=== PATIENT | female | born 1945 | race Caucasian/White ===

== ENCOUNTER → 2016-11-22 | Outpatient (CLI) | payer OTHER ==
[~2016-11-22] MED LIST: ASPEC81 PO; ATOR-26 PO; CHOL2000 PO; CMD25 PO; LSN25 PO; LSX20 PO; METO50TA17 PO; OMEP40CA41 PO; SPIR25TA PO
== END | disposition home or self-care (01) ==
LOC: C.LABPVFM 13:57
PROVIDERS: ATTEND Family Medicine
DX: J02.9 Acute pharyngitis, unspecified (principal)

== ENCOUNTER → 2016-12-20 | Outpatient (CLI) | payer OTHER ==
[2016-12-20 17:30] LABS: BASO % 0.3 %; BASO ABS # 0.03 K/uL (0-0.2); COMPLETE YES; EOS % 3.6 %; HEMATOCRIT 42.7 % (37-47); IG% 0.2 %; LYMPH % 23.3 %; LYMPH ABS # 2.53 K/uL (1.2-3.4); MEAN CELL VOLUME 90.7 fL (80-100); MEAN CORPUSCULAR HEMOGLOBIN 28.7 pg (25-34); MEAN CORPUSCULAR HGB CONC 31.6 g/dl (32-36); MEAN PLATELET VOLUME 10.5 fL (7.4-10.4); MONO % 7.2 %; NEUT % 65.4 %; PLATELET COUNT 262 K/uL (130-400); RED BLOOD COUNT 4.71 M/uL (4.2-5.4); WHITE BLOOD COUNT 10.86 K/uL (4.8-10.8)
[2016-12-20 17:44] LABS: ALT/SGPT 17 U/L (12-78); AST/SGOT 13 U/L (15-37); BLOOD UREA NITROGEN 14 mg/dl (7-18); BUN/CREATININE RATIO 14.4 (10-20); CALCIUM 9.3 mg/dl (8.5-10.1); CARBON DIOXIDE 29 mmol/L (21-32); CHLORIDE 106 mmol/L (98-107); GLUCOSE 98 mg/dl (70-99); POTASSIUM 4.4 mmol/L (3.5-5.1); SODIUM 140 mmol/L (136-145)
[2016-12-20 17:47] LABS: ALKALINE PHOSPHATASE 77 U/L (45-117)
== END | disposition home or self-care (01) ==
LOC: C.LABPVFM 10:57
PROVIDERS: ATTEND Family Medicine
DX: I10 Essential (primary) hypertension (principal); M81.0 Age-related osteoporosis without current pathological fracture; E78.5 Hyperlipidemia, unspecified; I48.91 Unspecified atrial fibrillation

== ENCOUNTER → 2017-05-17 | Outpatient (CLI) | payer OTHER ==
[2017-05-17 13:02] LABS: ALT/SGPT 19 U/L (12-78); BLOOD UREA NITROGEN 19 mg/dl (7-18); BUN/CREATININE RATIO 19.8 (10-20); CARBON DIOXIDE 27 mmol/L (21-32); CHLORIDE 107 mmol/L (98-107); CHOLESTEROL 106 mg/dl (0-200); CREATININE 0.95 mg/dl (0.60-1.20); GLUCOSE 99 mg/dl (70-99); POTASSIUM 4.6 mmol/L (3.5-5.1); SODIUM 140 mmol/L (136-145)
[2017-05-17 13:05] LABS: ALKALINE PHOSPHATASE 84 U/L (45-117); AST/SGOT 18 U/L (15-37); CHOLESTEROL/HDL RATIO 2.5; HDL CHOLESTEROL 43 mg/dl; LDL CHOLESTEROL CALCULATED 39 mg/dl; TRIGLYCERIDES 118 mg/dl (0-150); VERY LOW DENSITY LIPOPROT CALC 24 mg/dl
== END | disposition home or self-care (01) ==
LOC: C.LABPVFM 09:09
PROVIDERS: ATTEND Family Medicine
DX: I10 Essential (primary) hypertension (principal); E55.9 Vitamin D deficiency, unspecified; E78.5 Hyperlipidemia, unspecified; I48.91 Unspecified atrial fibrillation; N28.89 Other specified disorders of kidney and ureter

== ENCOUNTER → 2017-05-23 | Outpatient (CLI) | payer OTHER ==
[2017-05-23 13:19] LABS: URINE PROTIEN/CREAT RATIO 0.1 (0-0.2)
== END | disposition home or self-care (01) ==
LOC: C.LABPVFM 06:19
PROVIDERS: ATTEND Family Medicine
DX: I10 Essential (primary) hypertension (principal); E55.9 Vitamin D deficiency, unspecified; E78.5 Hyperlipidemia, unspecified; I48.91 Unspecified atrial fibrillation; N28.89 Other specified disorders of kidney and ureter

== ENCOUNTER → 2017-07-12 | Outpatient (CLI) | payer OTHER | END | disposition home or self-care (01) | LOC: C.MAMM 08:45 | PROVIDERS: ATTEND Family Medicine | DX: M81.0 Age-related osteoporosis without current pathological fracture (principal) ==

== ENCOUNTER → 2017-11-28 | Outpatient (CLI) | payer OTHER ==
[2017-11-28 13:21] LABS: ALBUMIN 3.6 gm/dl (3.4-5.0); ALT/SGPT 16 U/L (12-78); BLOOD UREA NITROGEN 17 mg/dl (7-18); CALCIUM 9.3 mg/dl (8.5-10.1); CARBON DIOXIDE 26 mmol/L (21-32); CHOLESTEROL 101 mg/dl (0-200); CREATININE 1.02 mg/dl (0.60-1.20); GLUCOSE 105 mg/dl (70-99); POTASSIUM 4.6 mmol/L (3.5-5.1); SODIUM 139 mmol/L (136-145)
[2017-11-28 13:24] LABS: ALKALINE PHOSPHATASE 78 U/L (45-117); AST/SGOT 15 U/L (15-37); LDL CHOLESTEROL CALCULATED 45 mg/dl; TOTAL PROTEIN 7.1 gm/dl (6.4-8.2)
== END | disposition home or self-care (01) ==
LOC: C.LABPVFM 11:07
PROVIDERS: ATTEND Family Medicine
DX: I10 Essential (primary) hypertension (principal); E78.5 Hyperlipidemia, unspecified; I48.91 Unspecified atrial fibrillation; R94.31 Abnormal electrocardiogram [ECG] [EKG]; Z12.31 Encounter for screening mammogram for malignant neoplasm of breast

== ENCOUNTER 2020-10-25 11:13 | Inpatient (IN) ==
--- NOTE | 2020-10-25 11:34 | Emergency Department Note ---
Impression & Plan Atrial fibrillation with rapid ventricular response, Closed fracture of left proximal humerus, Left lower lobe pneumonia, CHI (closed head injury), Leukocytosis, Acute renal failure ED Provider Note INFORMANT: Patient ED PROVIDER(S): Román Lim MD CHIEF COMPLAINT: Fall PLAN: Disposition: Admitted Condition: Good Outpatient prescription management: none Referral: None MEDICAL DECISION MAKING: Patient presented to the emergency department after a fall out of bed. She was evaluated. She was found to be in rapid A. fib and her oxygen saturations were borderline low. Chest x-ray did reveal a mild pneumonia. ECG showed rapid atrial fibrillation. The patient was hydrated. She was given IV Lopressor. She was hydrated. Head CT and cervical spine CT were negative for acute process. She was found to have a proximal humerus fracture. She was placed in a sling. She only wanted Tylenol and this was given. The patient was also given a dose of IV Rocephin. Chemistry panel did reveal an elevated creatinine concerning for acute renal failure. Urinalysis was unremarkable. The patient was reassessed multiple times. She had a period where she was somewhat confused. BSG was normal. Repeat blood pressures revealed improvement. Her confusion seemed to improve. Covid testing was performed and was negative. Consultation was made with the [facility] service. Case was discussed with Dr. Rosales. He will consult with orthopedics. He evaluated t he patient in the ER and admitted her. Triage Nursing notes reviewed and agree them. Vital Signs: reviewed and remarkable for borderline low blood pressure and tachycardia Differential diagnosis: Fracture, subluxation, dislocation, contusion, ligamentous injury, neurovascular, compartment syndrome, rhabdomyolysis, as well as other pathologies. Diagnostics interpreted by me: ECG: Twelve-lead ECG reveals atrial fibrillation with RVR at 124 bpm. There is poor R wave progression. There is inferolateral T wave inversions. No ST elevation. Cardiac Monitoring: Cardiac monitoring ordered by me: The patient was placed on continuous cardiac monitoring and observed. It revealed atrial fibrillation at 110 beats per minute . Imaging studies: Head CT negative for acute process CT cervical negative for acute process Chest x-ray reveals left sided infiltrate. X-ray of the left humerus reveals a proximal fracture. No dislocation. Mild subluxation. Consultation(s): [facility] service HPI: The patient is a 75 year old female who presents to the Emergency Room with complaints of a fall. This started this morning and is from her bed. She lives at home. She apparently rolled out onto her left side. She did strike her head. There was a hematoma and she has pain in the left numerous area. The patient has has taken no medication for relieving factors. Current pain is rated as 6/10. Pt denies LOC, headache, fevers, chills, diaphoresis, visual changes, neck pain, chest pain, breathing difficulties, nausea, vomiting, abdominal pain, back pain, melena, hematochezia, urinary symptoms, numbness, weakness, lymphadenopathy, rash, or other complaints. ROS: See above HPI for pertinent positives & negatives. A total of 10 systems reviewed and were otherwise negative. PAST MEDICAL HISTORY:See Below , atrial fibrillation, COPD, hypertension PAST SURGICAL HISTORY:See Below, FAMILY HISTORY:See Below SOCIAL HISTORY:See Below, family, former smoker HOME MEDICATIONS:See Below ALLERGIES:See Below VITALS:See Below PHYSICAL EXAMINATION: GENERAL: Awake, alert, mildly uncomfortable-appearing, in no distress HENT: Normocephalic, forehead contusion noted. Oropharynx unremarkable. EYES: Normal conjunctiva. Sclera non-icteric. NECK: Inspection normal. Non-tender. Supple. No nuchal rigidity. FROM. No masses. RESPIRATORY: Clear to auscultation. No wheezes. No rales. Normal respiratory effort. CARDIAC: Tachycardic rate. Irregular rhythm. No murmurs. No rubs. Extremities warm and well perfused. Pulses equal. No JVD. GI: Soft, non-distended. No tenderness to palpation. No rebound or guarding. No masses. RECTAL: Deferred. MUSCULOSKELETAL: Atraumatic. Chest examination reveals no tenderness. The back is symmetrical on inspection without obvious abnormality. There is no CVA tenderness to palpation. No joint edema. LOWER EXTREMITIES: Calves are equal size bilaterally and non-tender. No edema. No discoloration. NEURO: Normal sensorium. No sensory or motor deficits noted. SKIN: No rash or jaundice noted. ED COURSE: Critical Care: I have personally spent greater than 32 minutes of critical care time in the direct management of this patient. This includes bedside care, interpretation of diagnostic studies, and testing, discussion with consultants, patient, and family members, and other required patient management activities. These minutes are in excess of all separately billable procedures. Román Lim MD Past Med/Surg History Medical History Abnormal mammogram Acquired pyloric stenosis Anxiety Common bile duct stone Depression History of basal cell carcinoma Intraductal papilloma Malignant neoplasm of colon, unspecified Surgical History History of breast surgery History of cholecystectomy History of colonoscopy History of exploratory laparotomy History of hip replacement History of oral surgery History of tonsillectomy History of tubal ligation Family History Mother Myocardial infarction Hypertension Father Myocardial infarction Hypertension Brother Myocardial infarction Sister Diabetes Denies family history of Ovarian cancer Prostate cancer Breast cancer Colorectal cancer Social History (Updated 08/05/20 @ 09:30 by RASHARD Hale) Smoking Status: Never smoker Hx Alcohol Use: No Hx Substance Use: No Hearing Ability: Normal Beliefs That Will Affect Care: None marital status: / Current Living Situation: Alone current occupational status: retired Feels Safe at Home: Yes caffeine: Yes Dental Care, Regularly: No Physical Activity Frequency: Does not Exercise Seatbelt Use: always Sunscreen Use: No Allergies Allergies Allergy/AdvReac Type Severity Reaction Status Date / Time No Known Allergies Allergy Mild Verified 10/25/20 12:10 Home Meds Home Medications Medication Instructions Recorded Confirmed cholecalciferol (vitamin D3) 50 2,000 units PO DAILY #30 cap 06/25/19 10/25/20 mcg (2,000 unit) capsule aspirin [Aspirin Low Dose] 81 mg PO DAILY 10/25/20 10/25/20 sertraline 25 mg PO DAILY 10/25/20 10/25/20 Previous Rx's Medication Instructions Recorded rivaroxaban 15 mg tablet 15 mg PO DAILY #90 tab 01/27/20 furosemide 20 mg tablet 20 mg PO 3XWK #30 tab 04/20/20 metoprolol tartrate 25 mg tablet 12.5 mg PO BID #90 tab 07/05/20 atorvastatin 40 mg tablet 40 mg PO DAILY #90 tab 07/19/20 lisinopril 5 mg tablet 5 mg PO DAILY #90 tab 07/19/20 spironolactone 25 mg tablet 25 mg PO DAILY #90 tab 07/19/20 albuterol sulfate 90 mcg/actuation 1 inh INHALATION QID PRN #8.5 g 08/05/20 aerosol inhaler Results & Data (ED) Vital Signs Vital Signs - 24 hr 10/25/20 11:18 10/25/20 11:20 10/25/20 11:27 Temperature 36.9 C Temperature Source Oral Pulse Rate 112 H 132 H 115 H Pulse Rate from SpO2 Sensor Respiratory Rate 22 24 18 Blood Pressure 99/53 L 99/53 L Blood Pressure Mean 68 68 Pulse Oximetry 95 Oxygen Delivery Method Room Air Oxygen Flow Rate Sepsis Recent Fever Within 48 Hours No Sepsis New/Unexplained Change in Mental Status No Sepsis Action Taken by Nursing Physician Notified Oxygen Flow Rate - Titration Pulse Oximetry Post Tiitration 10/25/20 11:30 10/25/20 11:31 10/25/20 11:42 Temperature Temperature Source Pulse Rate 126 H Pulse Rate from SpO2 Sensor Respiratory Rate 22 Blood Pressure Blood Pressure Mean Pulse Oximetry 95 86 L Oxygen Delivery Method Room Air Room Air Oxygen Flow Rate Sepsis Recent Fever Within 48 Hours Sepsis New/Unexplained Change in Mental Status Sepsis Action Taken by Nursing Oxygen Flow Rate - Titration 2 Pulse Oximetry Post Tiitration 97 10/25/20 12:00 10/25/20 12:01 10/25/20 12:21 Temperature Temperature Source Pulse Rate 178 H 118 H 127 H Pulse Rate from SpO2 Sensor 137 H 105 H 156 H Respiratory Rate 23 20 22 Blood Pressure Blood Pressure Mean 129 Pulse Oximetry 99 100 100 Oxygen Delivery Method Oxygen Flow Rate 2 2 2 Sepsis Recent Fever Within 48 Hours Sepsis New/Unexplained Change in Mental Status Sepsis Action Taken by Nursing Oxygen Flow Rate - Titration Pulse Oximetry Post Tiitration 10/25/20 12:22 10/25/20 12:26 10/25/20 12:29 Temperature Temperature Source Pulse Rate 124 H 146 H 126 H Pulse Rate from SpO2 Sensor 137 H 136 H 123 H Respiratory Rate 20 22 22 Blood Pressure 90/63 L 94/55 L Blood Pressure Mean 72 68 Pulse Oximetry 98 99 97 Oxygen Delivery Method Oxygen Flow Rate 2 2 2 Sepsis Recent Fever Within 48 Hours Sepsis New/Unexplained Change in Mental Status Sepsis Action Taken by Nursing Oxygen Flow Rate - Titration Pulse Oximetry Post Tiitration 10/25/20 12:30 10/25/20 12:58 10/25/20 12:59 Temperature Temperature Source Pulse Rate 123 H 122 H 132 H Pulse Rate from SpO2 Sensor 156 H 140 H Respiratory Rate 24 20 Blood Pressure 91/66 L 91/66 L Blood Pressure Mean 74 Pulse Oximetry 94 98 Oxygen Delivery Method Oxygen Flow Rate 2 Sepsis Recent Fever Within 48 Hours Sepsis New/Unexplained Change in Mental Status Sepsis Action Taken by Nursing Oxygen Flow Rate - Titration Pulse Oximetry Post Tiitration 10/25/20 13:00 10/25/20 13:30 10/25/20 13:38 Temperature Temperature Source Pulse Rate 138 H 124 H 110 H Pulse Rate from SpO2 Sensor 129 H 110 H 109 H Respiratory Rate 21 22 20 Blood Pressure 84/53 L Blood Pressure Mean 63 Pulse Oximetry 100 100 99 Oxygen Delivery Method Oxygen Flow Rate Sepsis Recent Fever Within 48 Hours Sepsis New/Unexplained Change in Mental Status Sepsis Action Taken by Nursing Oxygen Flow Rate - Titration Pulse Oximetry Post Tiitration 10/25/20 13:39 10/25/20 14:00 10/25/20 14:07 Temperature Temperature Source Pulse Rate 135 H 131 H 131 H Pulse Rate from SpO2 Sensor 102 H 115 H 123 H Respiratory Rate 22 21 21 Blood Pressure 89/50 L Blood Pressure Mean 63 Pulse Oximetry 99 100 100 Oxygen Delivery Method Oxygen Flow Rate 2 2 2 Sepsis Recent Fever Within 48 Hours Sepsis New/Unexplained Change in Mental Status Sepsis Action Taken by Nursing Oxygen Flow Rate - Titration Pulse Oximetry Post Tiitration 10/25/20 14:30 10/25/20 14:31 10/25/20 14:34 Temperature Temperature Source Pulse Rate 138 H 127 H 120 H Pulse Rate from SpO2 Sensor 125 H 109 H 116 H Respiratory Rate 21 22 23 Blood Pressure Blood Pressure Mean 61 Pulse Oximetry 98 99 99 Oxygen Delivery Method Oxygen Flow Rate 2 2 2 Sepsis Recent Fever Within 48 Hours Sepsis New/Unexplained Change in Mental Status Sepsis Action Taken by Nursing Oxygen Flow Rate - Titration Pulse Oximetry Post Tiitration 10/25/20 14:35 10/25/20 15:00 10/25/20 15:01 Temperature Temperature Source Pulse Rate 121 H 118 H 123 H Pulse Rate from SpO2 Sensor 127 H 101 H 116 H Respiratory Rate 22 23 21 Blood Pressure 147/55 H Blood Pressure Mean 85 Pulse Oximetry 99 96 95 Oxygen Delivery Method Oxygen Flow Rate Sepsis Recent Fever Within 48 Hours Sepsis New/Unexplained Change in Mental Status Sepsis Action Taken by Nursing Oxygen Flow Rate - Titration Pulse Oximetry Post Tiitration 10/25/20 15:06 Temperature Temperature Source Pulse Rate Pulse Rate from SpO2 Sensor Respiratory Rate 18 Blood Pressure Blood Pressure Mean Pulse Oximetry Oxygen Delivery Method Oxygen Flow Rate Sepsis Recent Fever Within 48 Hours Sepsis New/Unexplained Change in Mental Status Sepsis Action Taken by Nursing Oxygen Flow Rate - Titration Pulse Oximetry Post Tiitration Laboratory Data Result diagrams: 10/25/20 11:35 10/25/20 11:35 Lab Results 10/25/20 10/25/20 10/25/20 Range/Units 11:35 11:35 12:34 WBC 15.62 H (4.8-10.8) K/uL RBC 4.46 (4.2-5.4) M/uL Hgb 10.9 L (12.0-16.0) g/dL Hct 38.0 (37-47) % MCV 85.2 (80-100) fL MCH 24.4 L (25-34) pg MCHC 28.7 L (32-36) g/dL RDW Std Deviation 56.9 H (36.4-46.3) fL RDW Coeff of Andrae 18.2 H (11.5-14.5) % Plt Count 294 (130-400) K/uL MPV 9.6 (7.4-10.4) fL Immature Gran % (Auto) 0.3 % Neut % (Auto) 86.9 % Lymph % (Auto) 3.7 % [place] % (Auto) 8.9 % Eos % (Auto) 0.1 % Baso % (Auto) 0.1 % Neut # (Auto) 13.58 H (1.4-6.5) K/uL Lymph # (Auto) 0.58 L (1.2-3.4) K/uL [place] # (Auto) 1.39 H (0.11-0.59) K/uL Eos # (Auto) 0.01 (0-0.5) K/uL Baso # (Auto) 0.01 (0-0.2) K/uL Immature Gran # (Auto) 0.05 H (0.00-0.02) K/uL Absolute Nucleated RBC 0.04 H (0-0) K/uL Nucleated RBC % (auto) 0.3 % Poikilocytosis Present Ovalocytes 1+ Echinocytes 1+ Schistocytes 1+ Sodium 143 (136-145) mmol/L Potassium 5.1 (3.5-5.1) mmol/L Chloride 106 (98-107) mmol/L Carbon Dioxide 30 (21-32) mmol/L Anion Gap 7.0 (3-11) BUN 70 H (7-18) mg/dl Creatinine 2.03 H (0.6-1.2) mg/dl Est Cr Clr Drug Dosing 28.1 ml/min Est GFR ( Amer) 27.3 Est GFR (Non-Af Amer) 23.6 BUN/Creatinine Ratio 34.5 H (10-20) Glucose 151 H (70-99) mg/dl POC Glucose (70-99) mg/dl Lactate (0.4-2.0) mmol/L Calcium 9.8 (8.5-10.1) mg/dl Total Bilirubin 1.2 H (0.2-1) mg/dl AST 27 (15-37) U/L ALT 57 (12-78) U/L Alkaline Phosphatase 128 H (45-117) U/L Total Protein 7.0 (6.4-8.2) gm/dl Albumin 3.3 L (3.4-5.0) gm/dl Globulin 3.7 (2.5-4.0) gm/dl Albumin/Globulin Ratio 0.9 (0.9-2) TSH 4.960 H (0.300-4.500) uIu/ml Free T4 1.13 (0.8-1.6) ng/dl Urine Color Urine Appearance (Clear) Urine pH (4.5-7.5) Ur Specific Boyds (1.000-1.030) Urine Protein (Negative) Urine Glucose (UA) (Negative) Urine Ketones (Negative) Urine Blood (Negative) Urine Nitrite (Negative) Urine Bilirubin (Negative) Urine Urobilinogen (Negative) Ur Leukocyte Esterase (Negative) COVID-19 Eval Order Covid19 [facility] SARS-CoV-2, RNA, NAAT (NEGATIVE) 10/25/20 10/25/20 10/25/20 Range/Units 12:34 13:00 13:44 WBC (4.8-10.8) K/uL RBC (4.2-5.4) M/uL Hgb (12.0-16.0) g/dL Hct (37-47) % MCV (80-100) fL MCH (25-34) pg MCHC (32-36) g/dL RDW Std Deviation (36.4-46.3) fL RDW Coeff of Andrae (11.5-14.5) % Plt Count (130-400) K/uL MPV (7.4-10.4) fL Immature Gran % (Auto) % Neut % (Auto) % Lymph % (Auto) % [place] % (Auto) % Eos % (Auto) % Baso % (Auto) % Neut # (Auto) (1.4-6.5) K/uL Lymph # (Auto) (1.2-3.4) K/uL [place] # (Auto) (0.11-0.59) K/uL Eos # (Auto) (0-0.5) K/uL Baso # (Auto) (0-0.2) K/uL Immature Gran # (Auto) (0.00-0.02) K/uL Absolute Nucleated RBC (0-0) K/uL Nucleated RBC % (auto) % Poikilocytosis Ovalocytes Echinocytes Schistocytes Sodium (136-145) mmol/L Potassium (3.5-5.1) mmol/L Chloride (98-107) mmol/L Carbon Dioxide (21-32) mmol/L Anion Gap (3-11) BUN (7-18) mg/dl Creatinine (0.6-1.2) mg/dl Est Cr Clr Drug Dosing ml/min Est GFR ( Amer) Est GFR (Non-Af Amer) BUN/Creatinine Ratio (10-20) Glucose (70-99) mg/dl POC Glucose (70-99) mg/dl Lactate 1.1 (0.4-2.0) mmol/L Calcium (8.5-10.1) mg/dl Total Bilirubin (0.2-1) mg/dl AST (15-37) U/L ALT (12-78) U/L Alkaline Phosphatase (45-117) U/L Total Protein (6.4-8.2) gm/dl Albumin (3.4-5.0) gm/dl Globulin (2.5-4.0) gm/dl Albumin/Globulin Ratio (0.9-2) TSH (0.300-4.500) uIu/ml Free T4 (0.8-1.6) ng/dl Urine Color Yellow Urine Appearance Clear (Clear) Urine pH 5.0 (4.5-7.5) Ur Specific Boyds 1.017 (1.000-1.030) Urine Protein Negative (Negative) Urine Glucose (UA) Negative (Negative) Urine Ketones Trace H (Negative) Urine Blood Negative (Negative) Urine Nitrite Negative (Negative) Urine Bilirubin Negative (Negative) Urine Urobilinogen Negative (Negative) Ur Leukocyte Esterase Negative (Negative) COVID-19 Eval Order SARS-CoV-2, RNA, NAAT NEGATIVE (NEGATIVE) 10/25/20 Range/Units 14:57 WBC (4.8-10.8) K/uL RBC (4.2-5.4) M/uL Hgb (12.0-16.0) g/dL Hct (37-47) % MCV (80-100) fL MCH (25-34) pg MCHC (32-36) g/dL RDW Std Deviation (36.4-46.3) fL RDW Coeff of Andrae (11.5-14.5) % Plt Count (130-400) K/uL MPV (7.4-10.4) fL Immature Gran % (Auto) % Neut % (Auto) % Lymph % (Auto) % [place] % (Auto) % Eos % (Auto) % Baso % (Auto) % Neut # (Auto) (1.4-6.5) K/uL Lymph # (Auto) (1.2-3.4) K/uL [place] # (Auto) (0.11-0.59) K/uL Eos # (Auto) (0-0.5) K/uL Baso # (Auto) (0-0.2) K/uL Immature Gran # (Auto) (0.00-0.02) K/uL Absolute Nucleated RBC (0-0) K/uL Nucleated RBC % (auto) % Poikilocytosis Ovalocytes Echinocytes Schistocytes Sodium (136-145) mmol/L Potassium (3.5-5.1) mmol/L Chloride (98-107) mmol/L Carbon Dioxide (21-32) mmol/L Anion Gap (3-11) BUN (7-18) mg/dl Creatinine (0.6-1.2) mg/dl Est Cr Clr Drug Dosing ml/min Est GFR ( Amer) Est GFR (Non-Af Amer) BUN/Creatinine Ratio (10-20) Glucose (70-99) mg/dl POC Glucose 141 H (70-99) mg/dl Lactate (0.4-2.0) mmol/L Calcium (8.5-10.1) mg/dl Total Bilirubin (0.2-1) mg/dl AST (15-37) U/L ALT (12-78) U/L Alkaline Phosphatase (45-117) U/L Total Protein (6.4-8.2) gm/dl Albumin (3.4-5.0) gm/dl Globulin (2.5-4.0) gm/dl Albumin/Globulin Ratio (0.9-2) TSH (0.300-4.500) uIu/ml Free T4 (0.8-1.6) ng/dl Urine Color Urine Appearance (Clear) Urine pH (4.5-7.5) Ur Specific [place] (1.000-1.030) Urine Protein (Negative) Urine Glucose (UA) (Negative) Urine Ketones (Negative) Urine Blood (Negative) Urine Nitrite (Negative) Urine Bilirubin (Negative) Urine Urobilinogen (Negative) Ur Leukocyte Esterase (Negative) COVID-19 Eval Order SARS-CoV-2, RNA, NAAT (NEGATIVE) Administered Medications Sodium Chloride (Nss 1000ml) 1,000 mls @ 125 mls/hr IV .Q8H STA Stop: 10/25/20 20:27 Last Admin: 10/25/20 13:00 Dose: 125 mls/hr Documented by: [id number] Discontinued Medications Acetaminophen (Acetaminophen 500 Mg Tab) 1,000 mg PO NOW STA Stop: 10/25/20 12:25 Last Admin: 10/25/20 12:59 Dose: 1,000 mg Documented by: [id number] Sodium Chloride (Nss 1000ml) 500 mls @ 999 mls/hr IV .Q31M ONE Stop: 10/25/20 12:58 Last Infusion: 10/25/20 15:27 Dose: 0 mls/hr Documented by: [id number] Admin: 10/25/20 12:59 Dose: 999 mls/hr Documented by: [id number] Sodium Chloride (Nss 1000ml) 500 mls @ 999 mls/hr IV .Q31M ONE Stop: 10/25/20 13:52 Last Infusion: 10/25/20 15:27 Dose: 0 mls/hr Documented by: [id number] Admin: 10/25/20 13:47 Dose: 999 mls/hr Documented by: [id number] Ceftriaxone Sodium (Rocephin) 2,000 mg in 70 mls @ 140 mls/hr IV NOW STA Stop: 10/25/20 13:51 Last Infusion: 10/25/20 15:28 Dose: 0 mls/hr Documented by: [id number] Admin: 10/25/20 14:32 Dose: 140 mls/hr Documented by: [id number] Metoprolol Tartrate (Metoprolol Tartrate 1 Mg/Ml Vial) 2.5 mg IV NOW STA Stop: 10/25/20 12:25 Last Admin: 10/25/20 12:59 Dose: 2.5 mg Documented by: [id number] Discharge Plan Visit Data Chief Complaint: Fall ED Provider: Román Lim Discharge Problem: Atrial fibrillation with rapid ventricular response, Closed fracture of left proximal humerus, Left lower lobe pneumonia, CHI (closed head injury), Leukocytosis, Acute renal failure Discharge Instructions Interventions: ED Discharge Assessment Last Done: 10/25/20 15:47
--- NOTE | 2020-10-25 12:04 | CT Scan Report ---
CT OF THE HEAD WITHOUT CONTRAST CLINICAL HISTORY: Fall. COMPARISON STUDY: Head CT December 31, 2011. CT DOSE: 2343.77 mGy.cm TECHNIQUE: Helical axial images of the head were obtained without IV contrast. Automated exposure con trol was utilized for the study. A dose lowering technique was utilized adhering to the principles o f ALARA. FINDINGS: This exam is mildly compromised by motion artifact. No acute intracranial hemorrhage, midli ne shift or mass effect is present. The ventricular system is unremarkable. White matter hypodensity suggests small vessel disease. The basal cisterns are patent. No extra-axial collections are present. There are no findings to suggest acute dural sinus thrombosis or acute territorial infarct. No signi ficant calvarial abnormalities are present. Visualized portions of the sinuses and mastoid air cells are clear. Note is made of an acute left humeral neck fracture which extends into the humeral head sh own on the windows admin image. IMPRESSION: 1. No acute intracranial findings. 2. Exam mildly compromised by motion artifact. No displaced calvarial fractures identified. 3. Acute displaced left humeral neck fracture likely extending to the humeral head which can be asses sed on left humerus radiographs which have been ordered. ACT 112: Negative or not required by law. Electronically signed by: Brennen Lugo M.D. 10/25/2020 12:03 PM
--- NOTE | 2020-10-25 12:12 | CT Scan Report ---
CT OF THE CERVICAL SPINE WITHOUT CONTRAST CLINICAL HISTORY: Fall. COMPARISON STUDY: No previous studies for comparison. TECHNIQUE: Helical axial images of the cervical spine were obtained without IV contrast. Sagittal a nd coronal reconstructions were viewed. Automated exposure control was utilized for the study. A do se lowering technique was utilized adhering to the principles of ALARA. FINDINGS: This exam is mildly compromised by motion artifact. Alignment of the cervical spine is daysi omic. Vertebral body heights are maintained. No acute cervical spine fracture or subluxation is prese nt. There is no prevertebral edema. Facet joints are intact. An acute displaced left humeral neck fr acture likely extending into the humeral head is noted on the glass decorator image. Note is made of a probable 4 cm left lobe thyroid nodule. IMPRESSION: 1. No acute cervical spine fracture or subluxation. Exam mildly compromised by motion artifact. 2. Acute left humeral neck fracture. 3. Suspected 4 cm left lobe thyroid nodule. This could be assessed with a thyroid ultrasound as an ou tpatient. ACT 112: Negative or not required by law. Electronically signed by: Brennen Lugo M.D. 10/25/2020 12:10 PM
[2020-10-25 12:15] LABS: Albumin Level 3.3 gm/dl (3.4-5.0); BUN Creatinine Ratio 34.5 (10-20); Calcium 9.8 mg/dl (8.5-10.1); Creatinine Clr Calc Pharmacy 28.1 ml/min; Est GFR (African American) 27.3; Est GFR (Non-African American) 23.6; Potassium 5.1 mmol/L (3.5-5.1)
[2020-10-25] MEDS ORDERED: METOPROLOL TARTRATE 1 MG/ML VIAL IV STA (12:24)
[2020-10-25] MEDS ORDERED: ACETAMINOPHEN 500 MG TAB PO STA (12:24)
[2020-10-25 12:25] LABS: Hemoglobin 10.9 g/dL (12.0-16.0); Mean Corpuscular Hemoglobin 24.4 pg (25-34); Mean Corpuscular Hgb Conc 28.7 g/dL (32-36); Mean Corpuscular Volume 85.2 fL (80-100); Mean Platelet Volume 9.6 fL (7.4-10.4); Nucleated RBC # (auto) 0.04 K/uL (0-0); Nucleated RBC % (auto) 0.3 %; Platelet Count 294 K/uL (130-400); RDW Coefficient of Variation 18.2 % (11.5-14.5); RDW Standard Deviation 56.9 fL (36.4-46.3); Red Blood Count 4.46 M/uL (4.2-5.4); White Blood Count 15.62 K/uL (4.8-10.8)
[2020-10-25 12:26] LABS: Albumin Globulin Ratio 0.9 (0.9-2); Bilirubin,Total 1.2 mg/dl (0.2-1); Globulin 3.7 gm/dl (2.5-4.0); Thyroid Stimulating Hormone 4.96 uIu/ml (0.300-4.500)
[2020-10-25] MEDS ORDERED: SODIUM CHLORIDE 0.9% 1000ML 1,000 ML IV STA (12:28)
[2020-10-25] MEDS ORDERED: SODIUM CHLORIDE 0.9% 1000ML 500 ML IV ONE ×2 (12:28→13:22)
[2020-10-25 12:38] LABS: Basophils # (auto) 0.01 K/uL (0-0.2); Basophils % (auto) 0.1 %; Echinocytes 1+; Eosinophils # (auto) 0.01 K/uL (0-0.5); Eosinophils % (auto) 0.1 %; Immature Granulocytes # (auto) 0.05 K/uL (0.00-0.02); Immature Granulocytes % (auto) 0.3 %; Lymphocytes # (auto) 0.58 K/uL (1.2-3.4); Lymphocytes % (auto) 3.7 %; Monocytes # (auto) 1.39 K/uL (0.11-0.59); Monocytes % (auto) 8.9 %; Neutrophils # (auto) 13.58 K/uL (1.4-6.5); Neutrophils % (auto) 86.9 %; Ovalocytes 1+; Poikilocytosis Present; Schistocytes 1+; T4 Free Thyroxine 1.13 ng/dl (0.8-1.6)
--- NOTE | 2020-10-25 12:59 | XRay Report ---
XR chest 1V portable HISTORY: fall, rapid afib COMPARISON: Chest 10/25/2020. FINDINGS: No pneumothorax or no pleural effusions. The cardiac silhouette is mildly enlarged. There i s mild central pulmonary vascular congestion without overt edema. Hazy appearance to left lung base i s noted. There are low lung volumes. The left humeral head/neck fracture. IMPRESSION: 1. Cardiomegaly with mild congestive change. 2. Left humeral head/neck fracture. 3. Hazy appearance to left lung base. This is nonspecific but could represent atelectasis versus pneu monia. Follow-up recommended to ensure resolution. ACT 112: Negative or not required by law. Electronically signed by: Hemanth Child M.D. 10/25/2020 12:58 PM
--- NOTE | 2020-10-25 13:02 | XRay Report ---
XR humerus LT 2V CLINICAL HISTORY: fall. Left arm pain. COMPARISON STUDY: None. FINDINGS: The bones are osteopenic. Slightly comminuted and impacted left humeral neck fracture which extends to the greater tuberosity humeral head. There is inferior subluxation of the humeral head in relation to the glenoid without dislocation. IMPRESSION: 1. Left humeral head/neck fracture. 2. Inferior subluxation of the humeral head without dislocation. ACT 112: Negative or not required by law. Electronically signed by: Hemanth Child M.D. 10/25/2020 1:01 PM
[2020-10-25 13:07] LABS: Appearance Urine Clear (Clear); Bilirubin Urine Negative (Negative); Blood Urine Negative (Negative); Color Urine Yellow; Glucose Urine UA Negative (Negative); Ketones Urine Trace (Negative); Leukocyte Esterase Urine Negative (Negative); Nitrite Urine Negative (Negative); Protein Urine Negative (Negative); Specific Gravity Urine 1.017 (1.000-1.030); Urobilinogen Urine Negative (Negative)
[2020-10-25] MEDS ORDERED: cefTRIAXone SODIUM 2,000 MG/70 ML BAG IV STA (13:22)
--- NOTE | 2020-10-25 14:31 | History & Physical Report ---
Date of Service October 25, 2020 Assessment & Plan (1) Atrial fibrillation: Patient is a history of atrial fibrillation chronic anticoagulation. Patient had a fall at home sustaining abrasion contusion to her forehead. This point time with her encephalopathy will also hold anticoagulation. Her rate is not controlled at this time but her blood pressure is soft we will continue intravenous fluids with her scheduled metoprolol adding 1 dose of digoxin to try to keep her rate slower. Fibrillation rate is physiologic in response to stress infection present on admission. There is description of some left basilar changes no pneumonia certainly urinary tract infection could be occult on mission. Patient to [facility] at this time. (2) Encephalopathy: Patient patient follow-up from current infection such as pneumonia described infection or from fall. Baseline unknown (3) Pneumonia: Patient has a possible left basilar infiltrate seen on chest x-ray. She is cannot give a good history whether she has had any coughing or production of mucus or fevers or chills at home. Patient's has no leukocytosis or fever emergency department continues ceftriaxone as ordered in the emergency department 2 g a day we will obtain a urine culture. Blood cultures sent in the ER. (4) Acute kidney injury: Patient acute kidney injury she is currently on TAE inhibitor and diuretics. She is an unknown cardiac ejection fraction at this time however because of her acute kidney injury we are holding her diuretics and lisinopril. (5) COPD, mild: Patient has elevation of her bicarbonate on presentation likely has a compensatory mechanism for COPD for inhalers were continued (6) Depression with anxiety: Patient does live alone there is some history of cognitive impairment he is only oriented x2 on presentation unclear whether this is her baseline or possibly from her closed head injury (7) DVT prophylaxis: scd for dvt prevention pt wished to be a full code I attempted to call the contact listed in the chart Manuela Solomon phone number said that it was not an operation. The patient says she has a sister in [place] but cannot provide me the number History of Present Illness Primary Care Provider: Surinder Curran DO The patient is a 75 year old female who presents to the Emergency Room with complaints of a fall. Patient was at home and reportedly fell from her bed, she did strike her head. There was a hematoma on her central forehead and she has pain in the left numerous area. The patient has has taken no medication for relieving factors. Pt denies LOC, headache, fevers, chills, diaphoresis, visual changes, neck pain, chest pain, breathing difficulties, nausea, vomiting, abdominal pain, back pain, melena, hematochezia, urinary symptoms, numbness, weakness, lymphadenopathy, rash, or other complaints. She is found to have a humeral neck fracture, acute kidney injury with creatinine of 2, patient fibr illation is unknown for response is unclear if she took this morning medications and she has some encephalopathy which could be metabolic but could be postconcussive. Allergies Allergy/AdvReac Type Severity Reaction Status Date / Time No Known Allergies Allergy Mild Verified 10/25/20 12:10 Home Medications Medication Instructions Recorded Confirmed Type cholecalciferol (vitamin D3) 50 2,000 units PO DAILY #30 cap 06/25/19 10/25/20 History mcg (2,000 unit) capsule rivaroxaban 15 mg tablet 15 mg PO DAILY #90 tab 01/27/20 10/25/20 Rx furosemide 20 mg tablet 20 mg PO 3XWK #30 tab 04/20/20 10/25/20 Rx metoprolol tartrate 25 mg tablet 12.5 mg PO BID #90 tab 07/05/20 10/25/20 Rx atorvastatin 40 mg tablet 40 mg PO DAILY #90 tab 07/19/20 10/25/20 Rx lisinopril 5 mg tablet 5 mg PO DAILY #90 tab 07/19/20 10/25/20 Rx spironolactone 25 mg tablet 25 mg PO DAILY #90 tab 07/19/20 10/25/20 Rx albuterol sulfate 90 mcg/actuation 1 inh INHALATION QID PRN #8.5 g 08/05/20 10/25/20 Rx aerosol inhaler aspirin [Aspirin Low Dose] 81 mg PO DAILY 10/25/20 10/25/20 History sertraline 25 mg PO DAILY 10/25/20 10/25/20 History Past Med/Surg History Medical History Abnormal mammogram Acquired pyloric stenosis Anxiety Common bile duct stone Depression History of basal cell carcinoma Intraductal papilloma Malignant neoplasm of colon, unspecified Surgical History History of breast surgery History of cholecystectomy History of colonoscopy History of exploratory laparotomy History of hip replacement History of oral surgery History of tonsillectomy History of tubal ligation Family History Mother Myocardial infarction Hypertension Father Myocardial infarction Hypertension Brother Myocardial infarction Sister Diabetes Denies family history of Ovarian cancer Prostate cancer Breast cancer Colorectal cancer Social History (Updated 08/05/20 @ 09:30 by RASHARD Hale) Smoking Status: Never smoker Hx Alcohol Use: No Hx Substance Use: No Hearing Ability: Normal Beliefs That Will Affect Care: None marital status: / Current Living Situation: Alone current occupational status: retired Feels Safe at Home: Yes caffeine: Yes Dental Care, Regularly: No Physical Activity Frequency: Does not Exercise Seatbelt Use: always Sunscreen Use: No Review of Systems Review of Systems: Mild to moderate distress and fatigue mild headache, no complaints of blurry or double vision no speech or swallowing issues no chest pain, pressure or palpitations no shortness of breath, cough or wheezes no abdominal pain, nausea or vomiting, diarrhea or constipation no dysuria, hematuria or frequency left proximal shoulder pain no back pain, CVA tenderness or radicular pain no bruising, bleeding or rashes no focal signs of weakness or numbness or altered sensation no complaints of anxiety or depression. does have some memory issues Physical Exam Physical Exam: The patient appeared oklder than her stated age and slightly confused Vital signs as documented. Head exam is normocephalic atraumatic no scleral icterus Neck is without JVD, thyromegaly, or carotid bruits. Lungs are diminished at the bases Cardiac exam, Rhythm is tachycardic and irregular.. systolic murmur Abdominal exam reveals normal bowel sounds, soft non tender, no masses Extremities are mildly edematous and both pedal pulses are present Neurologic exam is alert and oriented x2 , no focal loss of strength or sensation Skin is without bruises or rashes Psychologically is with concerns for memory loss Results & Data Results & Data ([facility]) Vital Signs (Past 12 Hours) Vital Signs Temp Pulse Resp BP Pulse Ox 10/25/20 14:07 131 H 21 100 10/25/20 14:00 131 H 21 89/50 L 100 10/25/20 13:39 135 H 22 99 10/25/20 13:38 110 H 20 84/53 L 99 10/25/20 13:30 124 H 22 100 10/25/20 13:00 138 H 21 100 10/25/20 12:59 132 H 91/66 L 10/25/20 12:58 122 H 20 91/66 L 98 10/25/20 12:30 123 H 24 94 10/25/20 12:29 126 H 22 94/55 L 97 10/25/20 12:26 146 H 22 90/63 L 99 10/25/20 12:22 124 H 20 98 10/25/20 12:21 127 H 22 100 10/25/20 12:01 118 H 20 100 10/25/20 12:00 178 H 23 99 10/25/20 11:42 86 L 10/25/20 11:31 95 10/25/20 11:30 126 H 22 10/25/20 11:27 98.4 F 115 H 18 99/53 L 95 10/25/20 11:20 132 H 24 10/25/20 11:18 112 H 22 99/53 L PG Care Time/CCT Total # of Minutes Spent Total Time Spent with Patient: Total time spent is greater than 50% in coordination of care (as documented) at patient's floor/unit and/or counseling patient: Coding Level of Care Code 88565 Initial Inpt Care Lvl 3 Diagnoses Atrial fibrillation I48.91 Encephalopathy G93.40 Pneumonia J18.9 Acute kidney injury N17.9 COPD, mild J44.9 Depression with anxiety F41.8 DVT prophylaxis Z29.9
[2020-10-25] MEDS ORDERED: DIGOXIN 500 MCG/2 ML AMP IV ONE (15:15)
--- NOTE | 2020-10-25 15:18 | Electrocardiogram Report ---
Test Reason : Blood Pressure : / mmHG Vent. Rate : 124 BPM Atrial Rate : 163 BPM P-R Int : 000 ms QRS Dur : 066 ms QT Int : 270 ms P-R-T Axes : 000 044 225 degrees QTc Int : 387 ms Atrial fibrillation with rapid ventricular response Poor R wave progression, consider anterior AL vs. lead placement vs. LVH T wave abnormality, consider inferolateral ischemia Abnormal ECG When compared with ECG of 04-APR-2018 09:13, T wave inversion now evident in Inferior leads T wave inversion now evident in Anterolateral leads Confirmed by Irving Acosta ([id number]) on 10/25/2020 3:18:24 PM Referred By: Confirmed By:Irving Acosta
[2020-10-25] MEDS ORDERED: ALBUTEROL HFA 8 GM INHALER INH PRN (16:21)
[2020-10-25] MEDS ORDERED: METOPROLOL TARTRATE 1 MG/ML VIAL IV PRN (16:21)
[2020-10-25] MEDS ORDERED: ALUMINUM/MAGNESIUM SUSP 30 ML UDC PO PRN (16:21)
[2020-10-25] MEDS ORDERED: SODIUM CHLORIDE 0.9% 1000ML 1,000 ML IV SCH ×2 (16:21→22:08)
[2020-10-25] MEDS ORDERED: ONDANSETRON INJ 2 MG/ML 2 ML VIAL IV PRN (16:21)
[2020-10-25] MEDS ORDERED: DIGOXIN 250 MCG in SYRINGE 9 ML IV ONE (16:30)
[2020-10-25] MEDS ORDERED: METOPROLOL TARTRATE 25 MG TAB PO SCH (21:00)
--- NOTE | 2020-10-25 23:23 | Communication Note ---
Date of Service: October 25, 2020 Current hospital course: Patient admitted today by Dr. Rosales following fall out of bed, found to have pneumonia as well as hypotension and AFib with RVR. Due to her BP patient was given digoxin 250 mcg IV x1 and NSS x2L in ER. HR improved from 170s to 120s during course. with improvement in BP from 60s to 140s systolic. CTA not performed, patient was on Xarelto therapy in outpatient setting and this was held by admitting physician in the setting of ?encephalopathy; CT Head showed no evidence of CVA or mass. Called to patient's bedside by nursing for BP noted to be 60s/40s. Patient denies SOB, chest pain, dizziness, headache, abdominal pain. HR at that time in 90s, telemetry showed irregular rhythm consistent with AFib. Given 500mL bolus, reassessed and found to have BP still 60s systolic. 1L bolus added, and reassessed still with BP 60s. Leodan Zamora with Charge Master Specialist service was consulted and patient was transferred to ICU status for close hemodynamic monitoring and pressure support. Resident Activity Tracking Resident Involvement: Resident Care Provided Care Provided: Adult Hospital Medicine
[2020-10-25] MEDS ORDERED: ICU PROTOCOL FOR HYPERGLYCEMIA PRN (23:42)
[2020-10-25] MEDS ORDERED: STAT IV Infusion **Titration per Protocol STA (23:42)
[2020-10-25] MEDS ORDERED: NOREPINEPHRINE/D5W 8 MG/508 ML BAG IV SCH (23:45)
[2020-10-25] MEDS ORDERED: NOREPINEPHRINE/D5W 8 MG/508 ML IV ONE (23:47)
[2020-10-26] MEDS ORDERED: MAGNESIUM HYDROXIDE SUSP 30 ML UDC PO PRN (00:20)
[2020-10-26] MEDS ORDERED: POLYETHYLENE (MIRALAX) 17 GM PACK PO PRN (00:20)
[2020-10-26] MEDS ORDERED: bisacodyL 10 MG SUPP PR PRN (00:20)
[2020-10-26] MEDS: FAMOTIDINE 20 MG in SYRINGE 3 ML IV SCH ×2 (00:24→07:58)
[2020-10-26 00:46] LABS: Basophils # (auto) 0.01 K/uL (0-0.2); Basophils % (auto) 0.1 %; Eosinophils # (auto) 0.02 K/uL (0-0.5); Eosinophils % (auto) 0.1 %; Hematocrit (blood only) 35.1 % (37-47); Hemoglobin 9.7 g/dL (12.0-16.0); Immature Granulocytes # (auto) 0.05 K/uL (0.00-0.02); Immature Granulocytes % (auto) 0.3 %; Lymphocytes # (auto) 0.98 K/uL (1.2-3.4); Mean Corpuscular Hemoglobin 24.6 pg (25-34); Mean Corpuscular Hgb Conc 27.6 g/dL (32-36); Mean Corpuscular Volume 88.9 fL (80-100); Mean Platelet Volume 9.7 fL (7.4-10.4); Monocytes # (auto) 1.85 K/uL (0.11-0.59); Monocytes % (auto) 11.4 %; Neutrophils # (auto) 13.29 K/uL (1.4-6.5); Neutrophils % (auto) 82.1 %; Nucleated RBC # (auto) 0.09 K/uL (0-0); Nucleated RBC % (auto) 0.6 %; Platelet Count 280 K/uL (130-400); RDW Coefficient of Variation 18.3 % (11.5-14.5); RDW Standard Deviation 59.9 fL (36.4-46.3); Red Blood Count 3.95 M/uL (4.2-5.4)
[2020-10-26 00:49] LABS: BUN Creatinine Ratio 31.2 (10-20); Calcium 8.5 mg/dl (8.5-10.1); Est GFR (African American) 26.1; Est GFR (Non-African American) 22.5; Potassium 5.6 mmol/L (3.5-5.1)
[2020-10-26 00:53] LABS: Phosphorus 5.4 mg/dl (2.5-4.9); Troponin I 0.04 ng/ml (0-0.045)
--- NOTE | 2020-10-26 00:56 | Procedure Note ---
Procedure Note Date of Service October 26, 2020 Procedure: Arterial Line Placement Attending: Dr. Colindres APC: Leodan Zamora PA-C Indication: Monitoring on Pressors Anesthesia: Lidocaine 1% Emergent consent implied in the setting of need for close hemodynamic monitoring with poor and high BP readings and need for addition of Levophed in the hypotensive patient. A time-out was completed verifying correct patient, procedure, site, positioning, and implant(s) or special equipment if applicable. Allens test was performed to ensure adequate perfusion. Patients RIGHT wrist was prepped and draped in the usual sterile fashion. Ultrasound guidance was used to aid needle placement. A 20g Arrow arterial line was introduced into the RIGHT Radial artery. Catheter was threaded, and the needle was removed with appropriate blood return. Good waveform was observed. The patient tolerated the procedure well. Confirmation of placement with ultrasound. \ Blood Loss: Minimal Complications: None Procedural Ultrasound Guidance: Procedure Date: 10/26/2020 Indication: Pressors, Frequent labs, poor peripheral access. Attending: Dr. Colindres APC: Leodan Zamora PA-C Artery Identified: YES Line confirmed in Artery with ultrasound: YES Complications: NONE Patient tolerated procedure: WELL Coding CPT Codes Tubes, Drains, and Vasc Access - Tubes, Drains, and Vasc Access: [id number] Place Catheter In Artery ([id number]) [facility] [place] Codes (Charges) Tubes, Drains, and Vasc Access Procedure 1: Tubes, Drains, and Vasc Access: [id number] Place Catheter In Artery
--- NOTE | 2020-10-26 00:56 | Critical Care Consultation ---
Date of Consultation October 26, 2020 Assessment & Plan (1) Admitted to intensive care unit: Reason Critically Ill: 75-year-old female with profound hypotension in the setting of rate controlled A. fib without improvement in blood pressure despite aggressive crystalloid boluses. Concern for LEFT lower lobe pneumonia with possible progression to severe sepsis. Patient to require vasoactive medications for support. NEURO - * CAM ICU: NEGATIVE * Encephalopathy: * Uncertain as to patient's baseline as discussed in hospitalist note. * Patient is extremely pleasant and does provide information regarding her life and her recent fall/injury. * Thankfully, CT of her head was without acute injury or bleeding. * She is without focal neurological deficits on exam. * She is uremic which certainly could contribute to this encephalopathy as well. Will add further laboratory studies to assess for associated metabolic components. * Closed head injury: * Concerning and the patient chronically anticoagulated on Xarelto. * Thankfully without focal neurological deficits and with a negative CT he ad/brain. * Depression/anxiety: * Continue home sertraline dosing. CARDIAC/VASCULAR - * Acute hypotension: * Uncertain of exact etiology at this point. * Patient did present with significant tachycardia which did resolve with aggressive IV fluid, beta-denae, and digoxin. * Despite this correction and with fluid boluses, the patient remains hypotensive. * Patient with longstanding history of scleroderma and clinically, she appears vasculopathic. Question if this could be contributing to her hypotension as she is mentating appropriately. Unfortunately, she does appear to be having worsening renal function which may be secondary to hypoperfusion from hypotension. * We will start the patient on Levophed. * Would consider transitioning to phenylephrine, however I am unable to ascertain prior echocardiogram which would be beneficial prior to starting this pressor. * Will add a.m. echocardiogram for completeness. * Will check troponin for possible suggestion of ischemia. * Redose with digoxin if necessary as this did provide some improvement of her tachycardia. * Difficulty obtaining peripheral blood pressures as well. Will place arterial line for close hemodynamic monitoring. * Monitor on telemetry. RESPIRATORY - * COPD: * Patient currently requiring 3 L nasal cannula. * She does not wear home oxygen or BiPAP to sleep at night. * Unable to obtain pulse oximetry in standard fashion secondary to patient's likely peripheral vascular disease with her current hypotensive state as well. * Will obtain ABG to assess oxygenation and ventilation. * LEFT lower lobe infiltrative change: * Initially, the patient responded well to IV fluids and Rocephin. * No reports of aspiration, however with patient's worsening clinical picture, will expand antibiotic coverage to include Pseudomonas and possible anaerobic coverage as well. GI/NUTRITION - * Will make n.p.o. while on vasopressors. * Okay to have p.o. medication. * Prophylaxis: Famotidine RENAL/LYTES - * Acute kidney injury: * Will place order for Capps catheter for evaluation of I&Os * Likely prerenal in setting of profound hypotension. * Will monitor closely with correction of blood pressure and fluid status. * Trend electrolytes. Replace appropriately. * IVF: Normal saline at 100 mL's per hour. - * Capps in place - Strict I&Os. ENDO - * No h/o DM or Thyroid Dz * BSGs per unit protocol. ISS --> gtt per unit policy. HEME - * Stable H&H * Will monitor closely for s/s bleeding s/p fall on Eliquis. * Agree w/ holding anticoagulation pending Ortho evaluation. ID - * LLL Pneumonia: * Initially covered w/ Rocephin. * Will broaden to Cefepime and Flagyl to cover for possible aspiration as the patient has clinically declined. * Will recheck Lactate and PCT. * Blood cultures pending. LINES/IV ACCESS - * PIVs x1 DVT PROPHYLAXIS - * Hold on chemoprophylaxis and home Eliquis pending Ortho evaluation for possible need for surgical revision of LEFT humeral head fracture. * SCDs I have personally spent 65 minutes of critical care time in the direct management of this patient. This is a life/limb threatening event. This includes time spent evaluating patient, direct bedside care, chart review, placing orders, interpretation of diagnostic studies, discussion with consultants, patient, and family members, as well as other required patient management activities. This time is exclusive of all separately billable procedures, and teaching time and separate from and in addition to any other critical care service time. Thank you for allowing us to participate in the care of this patient. Please refer to my attending physician's documentation for any further recommendations. (2) Atrial fibrillation with rapid ventricular response: (3) Closed fracture of left proximal humerus: (4) Left lower lobe pneumonia: (5) CHI (closed head injury): (6) Leukocytosis: (7) Acute renal failure: (8) Encephalopathy: (9) COPD, mild: (10) Former smoker: (11) Cognitive impairment: (12) Hyperlipidemia: (13) Hypertension: (14) Raynauds phenomenon: (15) Scleroderma: Supervising Physician Co-Signing Physician Notes Patient seen and examined. Discussed with critical care MATT and with bedside ICU nurse and patient at bedside. Chart extensively reviewed and imaging independently reviewed. 75-year-old female with A. fib admitted status post fall with left humeral head fracture. A. fib with RVR and hypotensive and found to be in hypercarbic respiratory failure of unclear etiology. The patient does have a remote history of tobacco abuse. She does not relate a prior history of sleep disordered breathing obese and at risk for obesity hypoventilation. I do not see in her MAR that she received respiratory depressant medications. Her white blood cell count is elevated and there was initial concern about pneumonia however follow- up chest x-ray post line placement demonstrates resolution of the previously noted airspace opacity so I think pneumonia is unlikely. I suspect her leukocytosis is related to stress response from her fracture. Okay to de- escalate antibiotics down to cefepime currently with plans to discontinue in the next 24 to 48 hours depending on clinical response. The patient does manifest relative adrenal insufficiency and will be started on hydrocortisone and Florinef. Due to concern about potentiating tachyarrhythmias with norepinephrine we will switch her over to Karlo-Synephrine to maintain a systolic blood pressure. She does have some peripheral edema so may be third spacing. Her intravascular volume appears adequate currently. Lactate is normal. With regards to her hypercarbic respiratory failure, the etiology is unclear. She does not appear to be manifesting signs or symptoms of obstructive lung disease although that certainly possible. No obvious chest wall abnormalities to account for the abnormality. Again do not see evidence of respiratory suppressant medications. She is responded favorably to BiPAP and will wean her off today. We will continue BiPAP at night. Await orthopedics consulted regarding potential surgical management of her fracture. We will continue to follow in ICU pending stabilization of her hemodynamics. History of Present Illness Attending Physician: Ysabel Ng MD History of Present Illness Patient is a 75-year-old female with a significant past medical history of A. fib currently anticoagulated on Xarelto, scleroderma, Raynaud's phenomenon, obesity, long QT interval, hypertension, hyperlipidemia, depression, anxiety, cognitive impairment, and COPD. Patient lives at home alone at baseline with a federal district clerk as well as a neighbor who watching her regularly. She is seen at her primary care provider and concessionist regularly. She was admitted to this facility on 10/25 after sustaining a LEFT proximal humeral head fracture after falling out of bed. Thankfully, CT of the head was without acute finding. X- ray confirmed fracture of the proximal LEFT humeral head. There was concern for LEFT lower lobe infiltrate. She received Rocephin in the emergency department. Patient was hypotensive and tachycardic on arrival in the emergency department. She did respond to fluid boluses initially. She received one-time dose of digoxin while admitted on the floor. Unfortunately, the patient's blood pressure continued to decline with regular readings in the 60s systolically. Despite this, the patient remained awake, alert, and semioriented which is a question of patient's baseline cognitive status. Patient had already received aggressive fluid resuscitation. She was subsequently brought to the ICU for further evaluation and management. Upon arrival in the ICU, the patient is awake and alert. She initially thought that she was at home. She does think that the year is 2022. She does provide information regarding her fall from bed. She also reports that she has a federal district clerk named "Laila" as well as a neighbor that look after her. She does complain of pain to the LEFT-sided shoulder, but otherwise offers no complaints at this time. History of present illness is limited secondary to patient's mental status. Allergies Allergy/AdvReac Type Severity Reaction Status Date / Time No Known Allergies Allergy Mild Verified 10/25/20 12:10 Home Medications Medication Instructions Recorded Confirmed Type cholecalciferol (vitamin D3) 50 2,000 units PO DAILY #30 cap 06/25/19 10/25/20 History mcg (2,000 unit) capsule rivaroxaban 15 mg tablet 15 mg PO DAILY #90 tab 01/27/20 10/25/20 Rx furosemide 20 mg tablet 20 mg PO 3XWK #30 tab 04/20/20 10/25/20 Rx metoprolol tartrate 25 mg tablet 12.5 mg PO BID #90 tab 07/05/20 10/25/20 Rx atorvastatin 40 mg tablet 40 mg PO DAILY #90 tab 07/19/20 10/25/20 Rx lisinopril 5 mg tablet 5 mg PO DAILY #90 tab 07/19/20 10/25/20 Rx spironolactone 25 mg tablet 25 mg PO DAILY #90 tab 07/19/20 10/25/20 Rx albuterol sulfate 90 mcg/actuation 1 inh INHALATION QID PRN #8.5 g 08/05/20 10/25/20 Rx aerosol inhaler aspirin [Aspirin Low Dose] 81 mg PO DAILY 10/25/20 10/25/20 History sertraline 25 mg PO DAILY 10/25/20 10/25/20 History Patient History Medical History Abnormal mammogram Acquired pyloric stenosis Anxiety Common bile duct stone Depression History of basal cell carcinoma Intraductal papilloma Malignant neoplasm of colon, unspecified Surgical History History of breast surgery Right breast History of cholecystectomy History of colonoscopy History of exploratory laparotomy History of hip replacement History of oral surgery History of tonsillectomy History of tubal ligation Family History Mother Myocardial infarction Hypertension Father Myocardial infarction Hypertension Brother Myocardial infarction Sister Diabetes Denies family history of Ovarian cancer Prostate cancer Breast cancer Colorectal cancer Social History Smoking Status: Never smoker Hx Alcohol Use: No Hx Substance Use: No Preferred Language: Slovenian Communication Ability: Effective Hearing Ability: Normal Flower [place] Required: No Beliefs That Will Affect Care: None marital status: / Current Living Situation: Alone current occupational status: retired Other Information That Helps Us Care for You: No Feels Safe at Home: Yes Safety Concerns: Feels Safe At This Time caffeine: Yes Dental Care, Regularly: No Physical Activity Frequency: Does not Exercise Seatbelt Use: always Sunscreen Use: No Assistive Devices: Oxygen - Continuous Review of Systems Review of Systems: A complete 10 point review of systems was reviewed with the patient with pertinent positives and negatives as per history of present illne ss. All else were negative. Physical Exam Physical Exam: VITAL SIGNS - Vital signs and nursing notes were reviewed. GENERAL - 75-year-old female appearing her stated age who is in no acute distress. Communicates well with provider and answers questions appropriately. SKIN - Without rashes. HEAD - NC/AT. EYES - PERRL with EOMI bilaterally. Sclera anicteric. Palpebral conjunctiva pink and moist with no injection noted. EARS - No deformities of external structures noted on gross examination bilaterally. NOSE - Midline and without cyanosis. No epistaxis or purulent drainage noted. MOUTH/OROPHARYNX - Without perioral cyanosis. Buccal mucosa pink and moist and without leukoplakia. Tongue midline with equal elevation of palate bilaterally. NECK - Neck with FROM. Supple to palpation. No lymphadenopathy noted. No nuchal rigidity. LUNGS - Chest wall symmetric without accessory muscle use, intercostals retractions, or central cyanosis. Diminished breath sounds throughout. No adventitious breath sounds appreciated. CARDIAC - RRR with S1/S2. No murmur, rubs, or gallops appreciated. ABDOMEN - Abdominal contour obese without pulsations or visible masses. BS normoactive all four quadrants. No tenderness, palpable masses, hepatosplenomegaly, or ascites noted. EXTREMITIES - No clubbing or peripheral cyanosis. No pretibial edema present. Diminished radial and dorsalis pedis pulses bilaterally. Tenderness to palpation to the LEFT-sided shoulder girdle. NEUROLOGIC - Cranial nerves II through XII grossly intact. Sensory intact to light touch throughout. PSYCH -patient awake and alert. She initially thinks that she is at home, but then corrects her self and states that she is in the hospital. She initially felt the year was 2022, but admits that she is not completely certain. She is able to provide events from her fall earlier in the day. Additionally, she is able to describe her home situation where she receives at home care with a federal district clerk by the name of "Laila". She also reports that she has a neighbor that checks on her regularly as well. Results & Data Results & Data ([facility]) Vital Signs (Past 12 Hours) Vital Signs Temp Pulse Pulse Resp BP BP Pulse Ox 10/25/20 23:02 36.3 C L 96 H 18 63/41 L 100 10/25/20 22:50 108 H 67/47 L 10/25/20 21:15 98 H 83/39 L 10/25/20 21:00 89 68/50 L 10/25/20 20:20 81 80/53 L 10/25/20 19:45 77/52 L 10/25/20 19:32 36.4 C L 90 18 99 10/25/20 17:48 123 H 10/25/20 17:30 115 H 142/78 H 10/25/20 16:33 36.2 C L 111 H 17 100 10/25/20 15:06 18 10/25/20 15:01 123 H 21 147/55 H 95 10/25/20 15:00 118 H 23 96 10/25/20 14:35 121 H 22 99 10/25/20 14:34 120 H 23 99 10/25/20 14:31 127 H 22 99 10/25/20 14:30 138 H 21 98 10/25/20 14:07 131 H 21 100 10/25/20 14:00 131 H 21 89/50 L 100 10/25/20 13:39 135 H 22 99 10/25/20 13:38 110 H 20 84/53 L 99 10/25/20 13:30 124 H 22 100 10/25/20 13:00 138 H 21 100 10/25/20 12:59 132 H 91/66 L 10/25/20 12:58 122 H 20 91/66 L 98 Coding Level of Care Code Critical Care 1st 30-74 mins Diagnoses Admitted to intensive care unit Z78.9 Atrial fibrillation with rapid ventricular response I48.91 Closed fracture of left proximal humerus S42.202A Left lower lobe pneumonia J18.9 CHI (closed head injury) S09.90XA Leukocytosis D72.829 Acute renal failure N17.9 Encephalopathy G93.40 COPD, mild J44.9 Former smoker Z87.891 Cognitive impairment R41.89 Hyperlipidemia E78.5 Hypertension I10 Raynauds phenomenon I73.00 Scleroderma M34.9 Time Spent (min) 65
[2020-10-26] MEDS ORDERED: DIGOXIN 500 MCG/2 ML AMP IV ONE (01:57)
[2020-10-26] MEDS ORDERED: DIGOXIN 250 MCG in SYRINGE 9 ML IV ONE (02:00)
[2020-10-26] MEDS ORDERED: CEFEPIME 2,000 MG in SYRINGE 0 ML IV SCH (02:00)
[2020-10-26] MEDS ORDERED: metroNIDAZOLE 500 MG/100 ML BAG IV SCH (02:00)
[2020-10-26 02:23] LABS: iSTAT Art Bld Gas pCO2 Correct 88 mmHg (35-46); iSTAT Art Bld Gas pH Corrected 7.088 (7.35-7.45); iSTAT Arterial Blood Gas HCO3 27 meg/L (19-24); iSTAT Arterial Blood Gas pCO2 93 mmHg (35-46); iSTAT Arterial Blood Gas pH 7.07 (7.35-7.45); iSTAT Arterial Blood Gas pO2 158 mmHg (80-95); iSTAT Arterial Blood Gas pO2 C 152; iSTAT Carbon Dioxide 30 mmol/L (24-31); iSTAT Hematocrit 35 % (37-47); iSTAT Hemoglobin 11.9 g/dl (12.0-16.0); iSTAT Potassium 5.4 mmol/L (3.3-5.0); iSTAT Site Art Line; iSTAT Sodium 141 mmol/L (135-144)
--- NOTE | 2020-10-26 03:22 | Procedure Note ---
Procedure Note Date of Service October 26, 2020 Procedure: Internal Jugular Central Line Placement Attending: Dr. Colindres APC: Leodan Zamora PA-C Indication: Central Drug Administration, Poor Venous Access, Multiple Lab Draws Necessary, etc. Anesthesia: Lidocaine 1% Emergent consent implied in the encephalopathic patient without medical proxy requiring vasoactive drugs with difficult peripheral access and limb restriction secondary to recent fracture of the LEFT humeral head. A time-out was completed verifying correct patient, procedure, site, positioning, and implants(s) or special equipment if applicable. Patients LEFT Neck was cleansed and draped in the typical sterile fashion using Chloraprep. The Internal Jugular Vein and Carotid Artery were identified using ultrasound. The superficial tissue was anesthetized using 5 mL of 1% lidocaine without epinephrine under direct visualization with the ultrasound. After adequate an esthetization was achieved, the Internal Jugular vein was cannulated under direct ultrasound guidance using an introducer needle on a syringe. Good venous blood return was maintained prior to removal of syringe from introducer needle. Using Seldinger Technique, a guide wire was advanced through the introducer needle without resistance. The introducer needle was removed and ultrasound images were obtained of the guide wire within the Internal Jugular Vein and saved to the patients medical record. The dilator was advanced to the vessel without resistance. The dilator was exchanged for the triple lumen catheter which was advanced into the vessel without resistance. The guide wire was removed intact from the catheter without issue. Claves were placed on each catheter tip with confirmation of good blood flow from each lumen. Each port was easily flushed with sterile saline. The catheter was placed at 18 cm and sutured in place. BioPatch was applied to the catheter and a sterile Tegaderm d ressing was applied over the catheter with careful attention to sterility. Patient tolerated procedure well. No immediate complications were met. Post procedure x-ray was completed, placement was appropriate and no pneumothorax was noted. Images obtained are saved for permanent record Procedural Ultrasound Guidance: Procedure Date: 10/26/2020 Indication: Pressors, Poor peripheral access, frequent labs Attending: Dr. Colindres APC: Leodan Zamora PA-C Artery AND Vein visualized: YES Compressible Vein: YES Guidewire or Short Catheter seen in vein prior to dilation: YES Line confirmed in Vein with ultrasound: YES Images obtained are saved for permanent record. Coding CPT Codes Tubes, Drains, and Vasc Access - Tubes, Drains, and Vasc Access: [id number] Insertion Of Non-tunneled Catheter Age 5 Yrs> ([id number]) Tubes, Drains, and Vasc Access - Tubes, Drains, and Vasc Access: [id number] Ultrasound Guidance For Vascular ([id number]) [facility] [place]Charges) Tubes, Drains, and Vasc Access Procedure 2: Tubes, Drains, and Vasc Access: [id number] Insertion Of Non-tunneled Catheter Age 5 Yrs> Procedure 3: Tubes, Drains, and Vasc Access: [id number] Ultrasound Guidance For Vascular
[2020-10-26 05:28] LABS: Basophils # (auto) 0.01 K/uL (0-0.2); Basophils % (auto) 0.1 %; Eosinophils # (auto) 0.02 K/uL (0-0.5); Eosinophils % (auto) 0.1 %; Hematocrit (blood only) 35.5 % (37-47); Hemoglobin 9.7 g/dL (12.0-16.0); Immature Granulocytes # (auto) 0.08 K/uL (0.00-0.02); Immature Granulocytes % (auto) 0.4 %; Lymphocytes % (auto) 5.4 %; Mean Corpuscular Hemoglobin 24.3 pg (25-34); Mean Corpuscular Hgb Conc 27.3 g/dL (32-36); Mean Corpuscular Volume 88.8 fL (80-100); Mean Platelet Volume 10.2 fL (7.4-10.4); Monocytes # (auto) 2.33 K/uL (0.11-0.59); Monocytes % (auto) 12.6 %; Neutrophils % (auto) 81.4 %; Nucleated RBC # (auto) 0.19 K/uL (0-0); Nucleated RBC % (auto) 1.1 %; Platelet Count 298 K/uL (130-400); RDW Coefficient of Variation 18.2 % (11.5-14.5); RDW Standard Deviation 59.2 fL (36.4-46.3); White Blood Count 18.54 K/uL (4.8-10.8)
[2020-10-26 05:50] LABS: BUN Creatinine Ratio 33.4 (10-20); Calcium 8.4 mg/dl (8.5-10.1); Est GFR (African American) 29.4; Est GFR (Non-African American) 25.4; Magnesium 1.8 mg/dl (1.8-2.4); Potassium 5.2 mmol/L (3.5-5.1)
[2020-10-26 05:52] LABS: iSTAT Art Bld Gas pCO2 Correct 64 mmHg (35-46); iSTAT Art Bld Gas pH Corrected 7.208 (7.35-7.45); iSTAT Arterial Blood Gas HCO3 26 meg/L (19-24); iSTAT Arterial Blood Gas pCO2 64 mmHg (35-46); iSTAT Arterial Blood Gas pH 7.21 (7.35-7.45); iSTAT Arterial Blood Gas pO2 96 mmHg (80-95); iSTAT Arterial Blood Gas pO2 C 96; iSTAT Carbon Dioxide 28 mmol/L (24-31); iSTAT FiO2 30 %; iSTAT Hematocrit 33 % (37-47); iSTAT Hemoglobin 11.2 g/dl (12.0-16.0); iSTAT Potassium 5.3 mmol/L (3.3-5.0); iSTAT Site Art Line; iSTAT Sodium 143 mmol/L (135-144)
[2020-10-26 06:12] LABS: Phosphorus 4.6 mg/dl (2.5-4.9)
[2020-10-26] MEDS ORDERED: SODIUM CHLORIDE 0.9% 1000ML 1,000 ML IV SCH (06:30)
--- NOTE | 2020-10-26 07:27 | XRay Report ---
SINGLE VIEW CHEST CLINICAL HISTORY: Central venous catheter placement. FINDINGS: An AP, portable, upright chest radiograph is compared to study dated 10/25/2020. A left inter nal jugular central venous catheter has been placed. The tip projects over the left innominate vein. The heart is mildly enlarged noting atherosclerotic calcification of the thoracic aorta. The pulmonar y vasculature is noncongested. Chronic interstitial thickening is similar to previous. There is bibas ilar atelectasis. No airspace consolidation is seen typical for pneumonia and there is no large pleur al effusion. No pneumothorax is identified. The skeletal structures are osteopenic. A left humeral ne ck fracture is noted. IMPRESSION: 1. A left internal jugular central venous catheter has been placed as above. No pneumothorax is seen post procedure. 2. Cardiomegaly without radiographic evidence of congestive failure. 3. No airspace consolidation or large pleural effusion is identified. 4. Left humeral neck fracture. ACT 112: Negative or not required by law. Electronically signed by: Boris Burrell M.D. 10/26/2020 7:26 AM
[2020-10-26] MEDS: CHOLECALCIFEROL 1,000 UNITS 25 MCG TAB PO SCH (07:58)
[2020-10-26] MEDS: ATORVASTATIN 40 MG TAB PO SCH (07:58)
[2020-10-26] MEDS: SERTRALINE HCL 50 MG TABLET PO SCH (07:59)
[2020-10-26] MEDS ORDERED: STAT IV Infusion **Titration per Protocol STA (08:04)
--- NOTE | 2020-10-26 08:32 | Hospitalist Progress Note ---
Date of Service October 26, 2020 Assessment & Plan (1) Atrial fibrillation with rapid ventricular response: 75-year-old female with a past medical history of A. fib on chronic anticoagulation with rivaroxaban, COPD (former smoker), depression, hyperlipidemia, hypertension, LVH, Raynaud's, scleroderma, vitamin D deficiency who presented status post fall and was diagnosed with a closed left humeral fracture and subsequently developed significant hypotension necessitating transfer to the ICU. #Septic shock in setting of Sepsis POA treated with 5+Liters of NSS bolus and Karlo-synephrine gtt. Patient presented with significant tachycardia resolving status post aggressive IV fluid, beta-denae and digoxin however continued to remain hypotensive necessitating transfer to the ICU where an IJ was placed for administration of pressors. Imaging was suspicious for left lower lobe infiltrate which taken with her clinical history could certainly result in this presentation. -Arterial line in place -Pressors per ICU protocol -Art line in place -Follow-up echo -Treat pneumonia -Monitor on telemetry -Fludrocortisone 0.1 mg every morning #Metabolic and septic encephalopathy Baseline mental status uncertain, on presentation to the hospital she was confused, not oriented to year, however pleasant and conversive. Skin would certainly be secondary to an underlying infection or her baseline. Will need to obtain collateral information -CT negative for closed head injury #Pneumonia Imaging suggesting a left lower lobe infiltrate, admitting physician was unable to obtain significant history of coughing or production of mucus, fevers or chills. There is no leukocytosis or fever on presentation the emergency department, she was started on ceftriaxone given 2 g. Blood cultures were obtained. Later abx coverage broadened. -Antibiotics per ICU #COPD exacerbation Former smoker, longstanding history of, likely complicating her current presentation. -Required BiPAP overnight, now weaned to oxygen mask on 2 L saturating 91% -Antibiotics as above -Hydrocortisone 50 mg every 6 #Electrolyte derangement -Replete as indicated per ICU protocol #JOHNATHAN Likely secondary to hypotension, expect to resolve as pressures improve. Avoid nephrotoxins #HTN meds on hold - lisinopril #a fib b denae, anticoagulation on hold. received IV dig will need to address anticoagulation FENa:NPO while on pressors Code Status:Full DVT PPX:Holding pending ortho evaluation PT/OT: Will need s/p ortho evaluation Dispo:ICU Paul You MD PGY 2, FCM This chart was completed utilizing [employer] voice recognition software. Grammatical errors, random word insertions, pronoun errors, and in complete sentences are an occasional consequence of the system. Any questions or concerns about the content, text, or information contained within the body of this dictation should be addressed directly to the physician for clarification. (2) Closed fracture of left proximal humerus: (3) Left lower lobe pneumonia: (4) CHI (closed head injury): (5) Leukocytosis: (6) Acute renal failure: (7) Encephalopathy: (8) COPD, mild: (9) Former smoker: (10) Cognitive impairment: (11) Hyperlipidemia: (12) Hypertension: (13) Raynauds phenomenon: (14) Scleroderma: Admission and Anticipated Discharge Date Admission Date: October 25, 2020 Supervising Physician Co-Signing Physician Notes Resident Physician Supervision Note: I independently interviewed and examined the patient and verified the mckeon history and physical, reviewed labs and image studies, discussed the case with the resident Dr. You and agree with the findings and care plan. Subjective Patient lying in bed sleeping comfortably with oxygen mask in place. Arterial line in IJ catheter in place. Physical Exam Physical Exam: General: Sleeping in bed, with increased work of breathing HEENT: Normocephalic atraumatic Neck: Normal to visual inspection, trachea midline Cardiac: Tachycardic otherwise regular rhythm I did not appreciate any significant murmurs rubs or gallops, normal S1, normal S2, negative pedal edema Respiratory: Increased work of breathing, did not appreciate any significant wheezes, rales, rhonchi. Symmetrical chest expansion GI: Bowel sounds present, distended, nontender Skin: No rash Neuro: Unable to assess due to somnolence Psych: Unable to assess due to somnolence Results & Data Results & Data ([facility]) Vital Signs (Past 12 Hours) Vital Signs Temp Pulse Pulse Resp BP BP Pulse Ox 10/26/20 07:31 89 20 96 10/26/20 06:35 86 22 101/46 L 98 10/26/20 06:16 93 H 21 10/26/20 05:16 94 H 24 10/26/20 04:15 37.0 C 10/26/20 04:00 98 H 22 10/26/20 03:02 95 H 24 10/26/20 02:30 94 H 23 10/26/20 02:07 120 H 10/26/20 01:30 100 H 19 10/26/20 01:20 107 H 19 48/32 L 10/26/20 01:11 110 H 17 78/57 L 10/26/20 01:04 87 19 66/47 L 10/26/20 01:00 101 H 18 10/26/20 00:49 96 H 22 67/35 L 10/26/20 00:47 96 H 20 66 L 10/26/20 00:43 98 H 15 61/51 L 10/26/20 00:36 97 H 19 77/52 L 10/26/20 00:30 93 H 18 10/26/20 00:20 100 H 21 99/71 L 10/26/20 00:15 99 H 20 10/26/20 00:03 98 H 20 109/47 L 10/26/20 00:00 97 H 23 10/25/20 23:58 90 21 98/73 L 10/25/20 23:44 101 H 23 56/30 L 10/25/20 23:40 99 H 34 H 10/25/20 23:39 96 H 22 10/25/20 23:02 36.3 C L 96 H 18 63/41 L 100 10/25/20 23:00 111 H 10/25/20 22:50 108 H 67/47 L 10/25/20 22:30 100 H 10/25/20 22:00 113 H 10/25/20 21:30 103 H 10/25/20 21:15 98 H 83/39 L 10/25/20 21:00 101 H 89 68/50 L 10/25/20 20:30 105 H Laboratory Results 10/26/20 10/26/20 10/26/20 Range/Units 05:39 04:46 04:46 WBC 18.54 H (4.8-10.8) K/uL RBC 4.00 L (4.2-5.4) M/uL Hgb 9.7 L (12.0-16.0) g/dL POC Hgb 11.2 L (12.0-16.0) g/dl Hct 35.5 L (37-47) % POC Hct 33 L (37-47) % MCV 88.8 (80-100) fL MCH 24.3 L (25-34) pg MCHC 27.3 L (32-36) g/dL RDW Std Deviation 59.2 H (36.4-46.3) fL RDW Coeff of Andrae 18.2 H (11.5-14.5) % Plt Count 298 (130-400) K/uL MPV 10.2 (7.4-10.4) fL Immature Gran % (Auto) 0.4 % Neut % (Auto) 81.4 % Lymph % (Auto) 5.4 % [place] % (Auto) 12.6 % Eos % (Auto) 0.1 % Baso % (Auto) 0.1 % Neut # (Auto) 15.10 H (1.4-6.5) K/uL Lymph # (Auto) 1.00 L (1.2-3.4) K/uL [place] # (Auto) 2.33 H (0.11-0.59) K/uL Eos # (Auto) 0.02 (0-0.5) K/uL Baso # (Auto) 0.01 (0-0.2) K/uL Immature Gran # (Auto) 0.08 H (0.00-0.02) K/uL Absolute Nucleated RBC 0.19 H (0-0) K/uL Nucleated RBC % (auto) 1.1 % Poikilocytosis Ovalocytes Echinocytes Schistocytes Sample Site Art Line POC pH 7.21 L (7.35-7.45) POC pCO2 64 H (35-46) mmHg POC pO2 96 H (80-95) mmHg POC HCO3 26 H (19-24) paul/L POC Total CO2 28 (24-31) mmol/L POC Base Excess -2.0 (-9-1.8) paul/L ABG pH (Temp Correct) 7.208 L (7.35-7.45) ABG pCO2 (Temp Corrct 64 H (35-46) mmHg POC ABG pO2 at Pt Temp 96 POC ABG O2 Sat 95.0 (90-95) % Anshu Test NA O2 Delivery Device BIPAP POC O2 Rate 18 POC FiO2 30 % IPAP 12 POC Sodium 143 (135-144) mmol/L Sodium 144 (136-145) mmol/L POC Potassium 5.3 H (3.3-5.0) mmol/L Potassium 5.2 H (3.5-5.1) mmol/L Chloride 112 H (98-107) mmol/L Carbon Dioxide 26 (21-32) mmol/L Anion Gap 6.0 (3-11) BUN 64 H (7-18) mg/dl Creatinine 1.91 H (0.6-1.2) mg/dl Est Cr Clr Drug Dosing 30.0 ml/min Est GFR ( Amer) 29.4 Est GFR (Non-Af Amer) 25.4 BUN/Creatinine Ratio 33.4 H (10-20) Glucose 119 H (70-99) mg/dl POC Glucose (70-99) mg/dl Lactate (0.4-2.0) mmol/L Calcium 8.4 L (8.5-10.1) mg/dl Phosphorus 4.6 (2.5-4.9) mg/dl Magnesium 1.8 (1.8-2.4) mg/dl Total Bilirubin (0.2-1) mg/dl AST (15-37) U/L ALT (12-78) U/L Alkaline Phosphatase (45-117) U/L Total Creatine Kinase 187 (26-192) U/L Troponin I (0-0.045) ng/ml Total Protein (6.4-8.2) gm/dl Albumin (3.4-5.0) gm/dl Globulin (2.5-4.0) gm/dl Albumin/Globulin Ratio (0.9-2) Procalcitonin (0-0.5) ng/ml TSH (0.300-4.500) uIu/ml Free T4 (0.8-1.6) ng/dl Random Cortisol mcg/dl Urine Color Urine Appearance (Clear) Urine pH (4.5-7.5) Ur Specific [place] (1.000-1.030) Urine Protein (Negative) Urine Glucose (UA) (Negative) Urine Ketones (Negative) Urine Blood (Negative) Urine Nitrite (Negative) Urine Bilirubin (Negative) Urine Urobilinogen (Negative) Ur Leukocyte Esterase (Negative) Nasal Screen MRSA (PCR) (Negative) COVID-19 Eval Order SARS-CoV-2, RNA, NAAT (NEGATIVE) 10/26/20 10/26/20 10/26/20 Range/Units 02:08 01:02 00:27 WBC (4.8-10.8) K/uL RBC (4.2-5.4) M/uL Hgb (12.0-16.0) g/dL POC Hgb 11.9 L (12.0-16.0) g/dl Hct (37-47) % POC Hct 35 L (37-47) % MCV (80-100) fL MCH (25-34) pg MCHC (32-36) g/dL RDW Std Deviation (36.4-46.3) fL RDW Coeff of Andrae (11.5-14.5) % Plt Count (130-400) K/uL MPV (7.4-10.4) fL Immature Gran % (Auto) % Neut % (Auto) % Lymph % (Auto) % [place] % (Auto) % Eos % (Auto) % Baso % (Auto) % Neut # (Auto) (1.4-6.5) K/uL Lymph # (Auto) (1.2-3.4) K/uL [place] # (Auto) (0.11-0.59) K/uL Eos # (Auto) (0-0.5) K/uL Baso # (Auto) (0-0.2) K/uL Immature Gran # (Auto) (0.00-0.02) K/uL Absolute Nucleated RBC (0-0) K/uL Nucleated RBC % (auto) % Poikilocytosis Ovalocytes Echinocytes Schistocytes Sample Site Art Line POC pH 7.07 L* (7.35-7.45) POC pCO2 93 H (35-46) mmHg POC pO2 158 H (80-95) mmHg POC HCO3 27 H (19-24) paul/L POC Total CO2 30 (24-31) mmol/L POC Base Excess -3.0 (-9-1.8) paul/L ABG pH (Temp Correct) 7.088 L* (7.35-7.45) ABG pCO2 (Temp Corrct 88 H (35-46) mmHg POC ABG pO2 at Pt Temp 152 POC ABG O2 Sat 98.0 H (90-95) % Anshu Test NA O2 Delivery Device Cannula POC O2 Rate POC FiO2 % IPAP POC Sodium 141 (135-144) mmol/L Sodium (136-145) mmol/L POC Potassium 5.4 H (3.3-5.0) mmol/L Potassium (3.5-5.1) mmol/L Chloride (98-107) mmol/L Carbon Dioxide (21-32) mmol/L Anion Gap (3-11) BUN (7-18) mg/dl Creatinine (0.6-1.2) mg/dl Est Cr Clr Drug Dosing ml/min Est GFR ( Amer) Est GFR (Non-Af Amer) BUN/Creatinine Ratio (10-20) Glucose (70-99) mg/dl POC Glucose (70-99) mg/dl Lactate 0.7 (0.4-2.0) mmol/L Calcium (8.5-10.1) mg/dl Phosphorus (2.5-4.9) mg/dl Magnesium (1.8-2.4) mg/dl Total Bilirubin (0.2-1) mg/dl AST (15-37) U/L ALT (12-78) U/L Alkaline Phosphatase (45-117) U/L Total Creatine Kinase (26-192) U/L Troponin I (0-0.045) ng/ml Total Protein (6.4-8.2) gm/dl Albumin (3.4-5.0) gm/dl Globulin (2.5-4.0) gm/dl Albumin/Globulin Ratio (0.9-2) Procalcitonin (0-0.5) ng/ml TSH (0.300-4.500) uIu/ml Free T4 (0.8-1.6) ng/dl Random Cortisol mcg/dl Urine Color Urine Appearance (Clear) Urine pH (4.5-7.5) Ur Specific [place] (1.000-1.030) Urine Protein (Negative) Urine Glucose (UA) (Negative) Urine Ketones (Negative) Urine Blood (Negative) Urine Nitrite (Negative) Urine Bilirubin (Negative) Urine Urobilinogen (Negative) Ur Leukocyte Esterase (Negative) Nasal Screen MRSA (PCR) Negative (Negative) COVID-19 Eval Order SARS-CoV-2, RNA, NAAT (NEGATIVE) 10/26/20 10/26/20 10/26/20 Range/Units 00:18 00:18 00:18 WBC (4.8-10.8) K/uL RBC (4.2-5.4) M/uL Hgb (12.0-16.0) g/dL POC Hgb (12.0-16.0) g/dl Hct (37-47) % POC Hct (37-47) % MCV (80-100) fL MCH (25-34) pg MCHC (32-36) g/dL RDW Std Deviation (36.4-46.3) fL RDW Coeff of Andrae (11.5-14.5) % Plt Count (130-400) K/uL MPV (7.4-10.4) fL Immature Gran % (Auto) % Neut % (Auto) % Lymph % (Auto) % [place] % (Auto) % Eos % (Auto) % Baso % (Auto) % Neut # (Auto) (1.4-6.5) K/uL Lymph # (Auto) (1.2-3.4) K/uL [place] # (Auto) (0.11-0.59) K/uL Eos # (Auto) (0-0.5) K/uL Baso # (Auto) (0-0.2) K/uL Immature Gran # (Auto) (0.00-0.02) K/uL Absolute Nucleated RBC (0-0) K/uL Nucleated RBC % (auto) % Poikilocytosis Ovalocytes Echinocytes Schistocytes Sample Site POC pH (7.35-7.45) POC pCO2 (35-46) mmHg POC pO2 (80-95) mmHg POC HCO3 (19-24) paul/L POC Total CO2 (24-31) mmol/L POC Base Excess (-9-1.8) paul/L ABG pH (Temp Correct) (7.35-7.45) ABG pCO2 (Temp Corrct (35-46) mmHg POC ABG pO2 at Pt Temp POC ABG O2 Sat (90-95) % Anshu Test O2 Delivery Device POC O2 Rate POC FiO2 % IPAP POC Sodium (135-144) mmol/L Sodium 144 (136-145) mmol/L POC Potassium (3.3-5.0) mmol/L Potassium 5.6 H (3.5-5.1) mmol/L Chloride 112 H (98-107) mmol/L Carbon Dioxide 27 (21-32) mmol/L Anion Gap 5.0 (3-11) BUN 66 H (7-18) mg/dl Creatinine 2.11 H (0.6-1.2) mg/dl Est Cr Clr Drug Dosing 27.0 ml/min Est GFR ( Amer) 26.1 Est GFR (Non-Af Amer) 22.5 BUN/Creatinine Ratio 31.2 H (10-20) Glucose 118 H (70-99) mg/dl POC Glucose (70-99) mg/dl Lactate (0.4-2.0) mmol/L Calcium 8.5 (8.5-10.1) mg/dl Phosphorus 5.4 H (2.5-4.9) mg/dl Magnesium 2.0 (1.8-2.4) mg/dl Total Bilirubin (0.2-1) mg/dl AST (15-37) U/L ALT (12-78) U/L Alkaline Phosphatase (45-117) U/L Total Creatine Kinase (26-192) U/L Troponin I 0.040 (0-0.045) ng/ml Total Protein (6.4-8.2) gm/dl Albumin (3.4-5.0) gm/dl Globulin (2.5-4.0) gm/dl Albumin/Globulin Ratio (0.9-2) Procalcitonin 0.07 (0-0.5) ng/ml TSH (0.300-4.500) uIu/ml Free T4 (0.8-1.6) ng/dl Random Cortisol 23.03 mcg/dl Urine Color Urine Appearance (Clear) Urine pH (4.5-7.5) Ur Specific [place] (1.000-1.030) Urine Protein (Negative) Urine Glucose (UA) (Negative) Urine Ketones (Negative) Urine Blood (Negative) Urine Nitrite (Negative) Urine Bilirubin (Negative) Urine Urobilinogen (Negative) Ur Leukocyte Esterase (Negative) Nasal Screen MRSA (PCR) (Negative) COVID-19 Eval Order SARS-CoV-2, RNA, NAAT (NEGATIVE) 10/26/20 10/25/20 10/25/20 Range/Units 00:18 14:57 13:44 WBC 16.20 H (4.8-10.8) K/uL RBC 3.95 L (4.2-5.4) M/uL Hgb 9.7 L (12.0-16.0) g/dL POC Hgb (12.0-16.0) g/dl Hct 35.1 L (37-47) % POC Hct (37-47) % MCV 88.9 (80-100) fL MCH 24.6 L (25-34) pg MCHC 27.6 L (32-36) g/dL RDW Std Deviation 59.9 H (36.4-46.3) fL RDW Coeff of Andrae 18.3 H (11.5-14.5) % Plt Count 280 (130-400) K/uL MPV 9.7 (7.4-10.4) fL Immature Gran % (Auto) 0.3 % Neut % (Auto) 82.1 % Lymph % (Auto) 6.0 % [place] % (Auto) 11.4 % Eos % (Auto) 0.1 % Baso % (Auto) 0.1 % Neut # (Auto) 13.29 H (1.4-6.5) K/uL Lymph # (Auto) 0.98 L (1.2-3.4) K/uL [place] # (Auto) 1.85 H (0.11-0.59) K/uL Eos # (Auto) 0.02 (0-0.5) K/uL Baso # (Auto) 0.01 (0-0.2) K/uL Immature Gran # (Auto) 0.05 H (0.00-0.02) K/uL Absolute Nucleated RBC 0.09 H (0-0) K/uL Nucleated RBC % (auto) 0.6 % Poikilocytosis Ovalocytes Echinocytes Schistocytes Sample Site POC pH (7.35-7.45) POC pCO2 (35-46) mmHg POC pO2 (80-95) mmHg POC HCO3 (19-24) paul/L POC Total CO2 (24-31) mmol/L POC Base Excess (-9-1.8) paul/L ABG pH (Temp Correct) (7.35-7.45) ABG pCO2 (Temp Corrct (35-46) mmHg POC ABG pO2 at Pt Temp POC ABG O2 Sat (90-95) % Anshu Test O2 Delivery Device POC O2 Rate POC FiO2 % IPAP POC Sodium (135-144) mmol/L Sodium (136-145) mmol/L POC Potassium (3.3-5.0) mmol/L Potassium (3.5-5.1) mmol/L Chloride (98-107) mmol/L Carbon Dioxide (21-32) mmol/L Anion Gap (3-11) BUN (7-18) mg/dl Creatinine (0.6-1.2) mg/dl Est Cr Clr Drug Dosing ml/min Est GFR ( Amer) Est GFR (Non-Af Amer) BUN/Creatinine Ratio (10-20) Glucose (70-99) mg/dl POC Glucose 141 H (70-99) mg/dl Lactate 1.1 (0.4-2.0) mmol/L Calcium (8.5-10.1) mg/dl Phosphorus (2.5-4.9) mg/dl Magnesium (1.8-2.4) mg/dl Total Bilirubin (0.2-1) mg/dl AST (15-37) U/L ALT (12-78) U/L Alkaline Phosphatase (45-117) U/L Total Creatine Kinase (26-192) U/L Troponin I (0-0.045) ng/ml Total Protein (6.4-8.2) gm/dl Albumin (3.4-5.0) gm/dl Globulin (2.5-4.0) gm/dl Albumin/Globulin Ratio (0.9-2) Procalcitonin (0-0.5) ng/ml TSH (0.300-4.500) uIu/ml Free T4 (0.8-1.6) ng/dl Random Cortisol mcg/dl Urine Color Urine Appearance (Clear) Urine pH (4.5-7.5) Ur Specific [place] (1.000-1.030) Urine Protein (Negative) Urine Glucose (UA) (Negative) Urine Ketones (Negative) Urine Blood (Negative) Urine Nitrite (Negative) Urine Bilirubin (Negative) Urine Urobilinogen (Negative) Ur Leukocyte Esterase (Negative) Nasal Screen MRSA (PCR) (Negative) COVID-19 Eval Order SARS-CoV-2, RNA, NAAT (NEGATIVE) 10/25/20 10/25/20 10/25/20 Range/Units 13:00 12:34 12:34 WBC (4.8-10.8) K/uL RBC (4.2-5.4) M/uL Hgb (12.0-16.0) g/dL POC Hgb (12.0-16.0) g/dl Hct (37-47) % POC Hct (37-47) % MCV (80-100) fL MCH (25-34) pg MCHC (32-36) g/dL RDW Std Deviation (36.4-46.3) fL RDW Coeff of Andrae (11.5-14.5) % Plt Count (130-400) K/uL MPV (7.4-10.4) fL Immature Gran % (Auto) % Neut % (Auto) % Lymph % (Auto) % [place] % (Auto) % Eos % (Auto) % Baso % (Auto) % Neut # (Auto) (1.4-6.5) K/uL Lymph # (Auto) (1.2-3.4) K/uL [place] # (Auto) (0.11-0.59) K/uL Eos # (Auto) (0-0.5) K/uL Baso # (Auto) (0-0.2) K/uL Immature Gran # (Auto) (0.00-0.02) K/uL Absolute Nucleated RBC (0-0) K/uL Nucleated RBC % (auto) % Poikilocytosis Ovalocytes Echinocytes Schistocytes Sample Site POC pH (7.35-7.45) POC pCO2 (35-46) mmHg POC pO2 (80-95) mmHg POC HCO3 (19-24) paul/L POC Total CO2 (24-31) mmol/L POC Base Excess (-9-1.8) paul/L ABG pH (Temp Correct) (7.35-7.45) ABG pCO2 (Temp Corrct (35-46) mmHg POC ABG pO2 at Pt Temp POC ABG O2 Sat (90-95) % Anshu Test O2 Delivery Device POC O2 Rate POC FiO2 % IPAP POC Sodium (135-144) mmol/L Sodium (136-145) mmol/L POC Potassium (3.3-5.0) mmol/L Potassium (3.5-5.1) mmol/L Chloride (98-107) mmol/L Carbon Dioxide (21-32) mmol/L Anion Gap (3-11) BUN (7-18) mg/dl Creatinine (0.6-1.2) mg/dl Est Cr Clr Drug Dosing ml/min Est GFR ( Amer) Est GFR (Non-Af Amer) BUN/Creatinine Ratio (10-20) Glucose (70-99) mg/dl POC Glucose (70-99) mg/dl Lactate (0.4-2.0) mmol/L Calcium (8.5-10.1) mg/dl Phosphorus (2.5-4.9) mg/dl Magnesium (1.8-2.4) mg/dl Total Bilirubin (0.2-1) mg/dl AST (15-37) U/L ALT (12-78) U/L Alkaline Phosphatase (45-117) U/L Total Creatine Kinase (26-192) U/L Troponin I (0-0.045) ng/ml Total Protein (6.4-8.2) gm/dl Albumin (3.4-5.0) gm/dl Globulin (2.5-4.0) gm/dl Albumin/Globulin Ratio (0.9-2) Procalcitonin (0-0.5) ng/ml TSH (0.300-4.500) uIu/ml Free T4 (0.8-1.6) ng/dl Random Cortisol mcg/dl Urine Color Yellow Urine Appearance Clear (Clear) Urine pH 5.0 (4.5-7.5) Ur Specific [place] 1.017 (1.000-1.030) Urine Protein Negative (Negative) Urine Glucose (UA) Negative (Negative) Urine Ketones Trace H (Negative) Urine Blood Negative (Negative) Urine Nitrite Negative (Negative) Urine Bilirubin Negative (Negative) Urine Urobilinogen Negative (Negative) Ur Leukocyte Esterase Negative (Negative) Nasal Screen MRSA (PCR) (Negative) COVID-19 Eval Order Covid19 IDNow atMNVC SARS-CoV-2, RNA, NAAT NEGATIVE (NEGATIVE) 10/25/20 10/25/20 Range/Units 11:35 11:35 WBC 15.62 H (4.8-10.8) K/uL RBC 4.46 (4.2-5.4) M/uL Hgb 10.9 L (12.0-16.0) g/dL POC Hgb (12.0-16.0) g/dl Hct 38.0 (37-47) % POC Hct (37-47) % MCV 85.2 (80-100) fL MCH 24.4 L (25-34) pg MCHC 28.7 L (32-36) g/dL RDW Std Deviation 56.9 H (36.4-46.3) fL RDW Coeff of Andrae 18.2 H (11.5-14.5) % Plt Count 294 (130-400) K/uL MPV 9.6 (7.4-10.4) fL Immature Gran % (Auto) 0.3 % Neut % (Auto) 86.9 % Lymph % (Auto) 3.7 % [place] % (Auto) 8.9 % Eos % (Auto) 0.1 % Baso % (Auto) 0.1 % Neut # (Auto) 13.58 H (1.4-6.5) K/uL Lymph # (Auto) 0.58 L (1.2-3.4) K/uL [place] # (Auto) 1.39 H (0.11-0.59) K/uL Eos # (Auto) 0.01 (0-0.5) K/uL Baso # (Auto) 0.01 (0-0.2) K/uL Immature Gran # (Auto) 0.05 H (0.00-0.02) K/uL Absolute Nucleated RBC 0.04 H (0-0) K/uL Nucleated RBC % (auto) 0.3 % Poikilocytosis Present Ovalocytes 1+ Echinocytes 1+ Schistocytes 1+ Sample Site POC pH (7.35-7.45) POC pCO2 (35-46) mmHg POC pO2 (80-95) mmHg POC HCO3 (19-24) paul/L POC Total CO2 (24-31) mmol/L POC Base Excess (-9-1.8) paul/L ABG pH (Temp Correct) (7.35-7.45) ABG pCO2 (Temp Corrct (35-46) mmHg POC ABG pO2 at Pt Temp POC ABG O2 Sat (90-95) % Anshu Test O2 Delivery Device POC O2 Rate POC FiO2 % IPAP POC Sodium (135-144) mmol/L Sodium 143 (136-145) mmol/L POC Potassium (3.3-5.0) mmol/L Potassium 5.1 (3.5-5.1) mmol/L Chloride 106 (98-107) mmol/L Carbon Dioxide 30 (21-32) mmol/L Anion Gap 7.0 (3-11) BUN 70 H (7-18) mg/dl Creatinine 2.03 H (0.6-1.2) mg/dl Est Cr Clr Drug Dosing 28.1 ml/min Est GFR ( Amer) 27.3 Est GFR (Non-Af Amer) 23.6 BUN/Creatinine Ratio 34.5 H (10-20) Glucose 151 H (70-99) mg/dl POC Glucose (70-99) mg/dl Lactate (0.4-2.0) mmol/L Calcium 9.8 (8.5-10.1) mg/dl Phosphorus (2.5-4.9) mg/dl Magnesium (1.8-2.4) mg/dl Total Bilirubin 1.2 H (0.2-1) mg/dl AST 27 (15-37) U/L ALT 57 (12-78) U/L Alkaline Phosphatase 128 H (45-117) U/L Total Creatine Kinase (26-192) U/L Troponin I (0-0.045) ng/ml Total Protein 7.0 (6.4-8.2) gm/dl Albumin 3.3 L (3.4-5.0) gm/dl Globulin 3.7 (2.5-4.0) gm/dl Albumin/Globulin Ratio 0.9 (0.9-2) Procalcitonin (0-0.5) ng/ml TSH 4.960 H (0.300-4.500) uIu/ml Free T4 1.13 (0.8-1.6) ng/dl Random Cortisol mcg/dl Urine Color Urine Appearance (Clear) Urine pH (4.5-7.5) Ur Specific [place] (1.000-1.030) Urine Protein (Negative) Urine Glucose (UA) (Negative) Urine Ketones (Negative) Urine Blood (Negative) Urine Nitrite (Negative) Urine Bilirubin (Negative) Urine Urobilinogen (Negative) Ur Leukocyte Esterase (Negative) Nasal Screen MRSA (PCR) (Negative) COVID-19 Eval Order SARS-CoV-2, RNA, NAAT (NEGATIVE) Resident Activity Tracking Resident Involvement: Resident Care Provided Care Provided: Adult Hospital Medicine
--- NOTE | 2020-10-26 08:33 | XCELERA ---
[id number]
[2020-10-26] MEDS ORDERED: lisinopril 5 MG TAB PO SCH (09:00)
[2020-10-26] MEDS ORDERED: ICU PROTOCOL FOR HYPERGLYCEMIA SCH (09:00)
[2020-10-26] MEDS: PHENYLEPHRINE HCL 20 MG in DEXTROSE 5% 500 ML IV SCH ×2 (09:20→13:30)
[2020-10-26] MEDS: FLUDROCORTISONE ACETATE 0.1 MG TAB PO SCH (09:21)
--- NOTE | 2020-10-26 10:07 | Electrocardiogram Report ---
Test Reason : Blood Pressure : / mmHG Vent. Rate : 098 BPM Atrial Rate : 340 BPM P-R Int : 000 ms QRS Dur : 062 ms QT Int : 332 ms P-R-T Axes : 000 097 215 degrees QTc Int : 423 ms Poor data quality, interpretation may be adversely affected Atrial fibrillation T wave abnormality, consider inferolateral ischemia Rightward axis Abnormal ECG When compared with ECG of 25-OCT-2020 11:35, No significant change Confirmed by Irving Acosta ([id number]) on 10/26/2020 10:07:42 AM Referred By: REFERRED SELF Confirmed By:Irving Acosta
--- NOTE | 2020-10-26 10:50 | Orthopedic Consultation ---
Date of Consultation October 26, 2020 Assessment & Plan (1) Closed fracture of left proximal humerus: Maintain sling immobilization and nonweightbearing of left upper extremity, ice to left shoulder, will obtain CT scan for planning purposes. Thank you for the consultation. History of Present Illness Reason for Consultation: Left proximal humerus fracture Attending Physician: Lisa Blount MD History of Present Illness The patient is a 75-year-old female with past medical history noted below who presents with complaints of acute traumatic left shoulder pain. Was seen at [facility] emergency department, x-rays obtained demonstrate a comminuted proximal humerus fracture. The patient was mated for further medical management, evaluation and treatment. Patient admits to hitting head but denies loss of consciousness. Denies numbness and tingling to left upper extremity or associated injuries, pain well controlled at this time. Allergies Allergy/AdvReac Type Severity Reaction Status Date / Time No Known Allergies Allergy Mild Verified 10/25/20 12:10 Home Medications Medication Instructions Recorded Confirmed Type cholecalciferol (vitamin D3) 50 2,000 units PO DAILY #30 cap 06/25/19 10/25/20 History mcg (2,000 unit) capsule rivaroxaban 15 mg tablet 15 mg PO DAILY #90 tab 01/27/20 10/25/20 Rx furosemide 20 mg tablet 20 mg PO 3XWK #30 tab 04/20/20 10/25/20 Rx metoprolol tartrate 25 mg tablet 12.5 mg PO BID #90 tab 07/05/20 10/25/20 Rx atorvastatin 40 mg tablet 40 mg PO DAILY #90 tab 07/19/20 10/25/20 Rx lisinopril 5 mg tablet 5 mg PO DAILY #90 tab 07/19/20 10/25/20 Rx spironolactone 25 mg tablet 25 mg PO DAILY #90 tab 07/19/20 10/25/20 Rx albuterol sulfate 90 mcg/actuation 1 inh INHALATION QID PRN #8.5 g 08/05/20 10/25/20 Rx aerosol inhaler aspirin [Aspirin Low Dose] 81 mg PO DAILY 10/25/20 10/25/20 History sertraline 25 mg PO DAILY 10/25/20 10/25/20 History Patient History Medical History Abnormal mammogram Acquired pyloric stenosis Anxiety Common bile duct stone Depression History of basal cell carcinoma Intraductal papilloma Malignant neoplasm of colon, unspecified Surgical History History of breast surgery Right breast History of cholecystectomy History of colonoscopy History of exploratory laparotomy History of hip replacement History of oral surgery History of tonsillectomy History of tubal ligation Family History Mother Myocardial infarction Hypertension Father Myocardial infarction Hypertension Brother Myocardial infarction Sister Diabetes Denies family history of Ovarian cancer Prostate cancer Breast cancer Colorectal cancer Social History Smoking Status: Never smoker Hx Alcohol Use: No Hx Substance Use: No Preferred Language: Italian Communication Ability: Effective Hearing Ability: Normal Melt Helper Required: No Beliefs That Will Affect Care: None marital status: / Current Living Situation: Alone current occupational status: retired Other Information That Helps Us Care for You: No Feels Safe at Home: Yes Safety Concerns: Feels Safe At This Time caffeine: Yes Dental Care, Regularly: No Physical Activity Frequency: Does not Exercise Seatbelt Use: always Sunscreen Use: No Assistive Devices: Oxygen - Continuous Review of Systems Review of Systems: All systems reviewed & are unremarkable except as noted in HPI & below Constitutional: as per Subjective / HPI Physical Exam Physical Exam: Left upper extremity is neurovascular sensory intact grossly, +2 radial pulse, compartment soft and compressible, tenderness to palpation overlying left proximal humerus, positive ecchymoses, positive edema, skin clean dry and intact. Sling immobilizer in place. Constitutional: WD/WN, vitals as above Results & Data ([place]) Vital Signs (Past 12 Hours) Vital Signs Temp Pulse Pulse Resp BP BP Pulse Ox 10/26/20 09:45 103 H 22 91 10/26/20 09:30 122 H 30 H 92 10/26/20 09:16 120 H 26 H 109/57 L 100 10/26/20 09:15 110 H 33 H 100 10/26/20 09:00 122 H 22 99 10/26/20 08:45 104 H 23 100 10/26/20 08:30 125 H 26 H 10/26/20 08:16 101 H 19 102/67 85 L 10/26/20 08:15 99 H 20 85 L 10/26/20 08:00 95 H 18 91 10/26/20 07:45 36.6 C 102 H 17 97 10/26/20 07:31 89 20 96 10/26/20 07:30 102 H 22 92 10/26/20 07:15 99 H 19 93 10/26/20 07:00 101 H 24 92 10/26/20 06:35 86 22 101/46 L 98 10/26/20 06:16 93 H 21 10/26/20 05:16 94 H 24 10/26/20 04:15 37.0 C 10/26/20 04:00 98 H 22 10/26/20 03:02 95 H 24 10/26/20 02:30 94 H 23 10/26/20 02:07 120 H 10/26/20 01:30 100 H 19 10/26/20 01:20 107 H 19 48/32 L 10/26/20 01:11 110 H 17 78/57 L 10/26/20 01:04 87 19 66/47 L 10/26/20 01:00 101 H 18 10/26/20 00:49 96 H 22 67/35 L 10/26/20 00:47 96 H 20 66 L 10/26/20 00:43 98 H 15 61/51 L 10/26/20 00:36 97 H 19 77/52 L 10/26/20 00:30 93 H 18 10/26/20 00:20 100 H 21 99/71 L 10/26/20 00:15 99 H 20 10/26/20 00:03 98 H 20 109/47 L 10/26/20 00:00 97 H 23 10/25/20 23:58 90 21 98/73 L 10/25/20 23:44 101 H 23 56/30 L 10/25/20 23:40 99 H 34 H 10/25/20 23:39 96 H 22 10/25/20 23:02 36.3 C L 96 H 18 63/41 L 100 10/25/20 23:00 111 H 10/25/20 22:50 108 H 67/47 L Diagnostic Findings XR humerus LT 2V CLINICAL HISTORY: fall. Left arm pain. COMPARISON STUDY: None. FINDINGS: The bones are osteopenic. Slightly comminuted and impacted left humeral neck fracture which extends to the greater tuberosity humeral head. There is inferior subluxation of the humeral head in relation to the glenoid without dislocation. IMPRESSION: 1. Left humeral head/neck fracture. 2. Inferior subluxation of the humeral head without dislocation.
--- NOTE | 2020-10-26 11:50 | CT Scan Report ---
LEFT SHOULDER CT CT DOSE: 530.79 mGy.cm HISTORY: Left shoulder pain with fracture TECHNIQUE: Multiaxial CT images of the left shoulder were performed and reformatted in the sagittal a nd coronal plane without the use of contrast. A dose lowering technique was utilized adhering to the principles of ALARA. COMPARISON: Left humerus 10/25/2020. FINDINGS: Comminuted and impacted left humeral neck fracture which extends through the greater tubero sity of the humeral head. This demonstrates up to 5 mm of posterior displacement. No dislocation. The visualized scapula and distal left clavicle show no acute fractures. Small left hemarthrosis is note d. There is soft tissue swelling within the left shoulder. IMPRESSION: Comminuted, impacted, and slightly displaced left humeral neck fracture which extends to the greater tuberosity of the humeral head. No dislocation. ACT 112: Negative or not required by law. Electronically signed by: Hemanth Child M.D. 10/26/2020 11:48 AM
[2020-10-26] MEDS: HYDROCORTISONE SOD 50 MG in SYRINGE 0 ML IV SCH ×3 (13:30→23:20)
[2020-10-26] MEDS ORDERED: cefTRIAXone SODIUM 2,000 MG in DEXTROSE 5% 50 ML IV SCH (14:00)
[2020-10-26 14:05] LABS: BUN Creatinine Ratio 44.2 (10-20); Calcium 5.3 mg/dl (8.5-10.1); Creatinine Clr Calc Pharmacy 63.1 ml/min; Est GFR (Non-African American) 62.2; Potassium 3.1 mmol/L (3.5-5.1)
[2020-10-26] MEDS ORDERED: CALCIUM GLUCONATE 10% 2,000 MG in SODIUM CHLORIDE 0.9% 50 ML IV ONE (14:45)
[2020-10-26] MEDS ORDERED: SODIUM BICARB 8.4% INJ 50 MEQ/50 ML SYR IV STA (15:06)
[2020-10-26] MEDS: POTASSIUM CHLORIDE / WTR 10 MEQ/100 ML PLCT IV SCH ×3 (15:22→17:43)
[2020-10-26] MEDS: LACTATED RINGER'S 1,000 ML IV SCH (15:25)
[2020-10-26] MEDS: PHENYLEPHRINE HCL 40 MG in DEXTROSE 5% 500 ML IV SCH ×2 (16:36→23:19)
[2020-10-26] MEDS ORDERED: CALCIUM GLUCONATE 10% 3,000 MG in 0.9 % SODIUM CHLORIDE 100 ML IV ONE (18:00)
[2020-10-26 21:51] LABS: iSTAT Allen Test Pass; iSTAT Art Bld Gas pCO2 Correct 61 mmHg (35-46); iSTAT Art Bld Gas pH Corrected 7.221 (7.35-7.45); iSTAT Arterial Blood Gas HCO3 25 meg/L (19-24); iSTAT Arterial Blood Gas pCO2 60 mmHg (35-46); iSTAT Arterial Blood Gas pH 7.22 (7.35-7.45); iSTAT Arterial Blood Gas pO2 82 mmHg (80-95); iSTAT Arterial Blood Gas pO2 C 82; iSTAT Carbon Dioxide 27 mmol/L (24-31); iSTAT FiO2 30 %; iSTAT Hematocrit 34 % (37-47); iSTAT Hemoglobin 11.6 g/dl (12.0-16.0); iSTAT Potassium 5.8 mmol/L (3.3-5.0); iSTAT Site R Radial; iSTAT Sodium 138 mmol/L (135-144)
[2020-10-26 23:02] LABS: BUN Creatinine Ratio 32.2 (10-20); Calcium 9.5 mg/dl (8.5-10.1); Creatinine Clr Calc Pharmacy 35.4 ml/min; Est GFR (African American) 35.9; Est GFR (Non-African American) 30.9; Magnesium 1.7 mg/dl (1.8-2.4); Phosphorus 3.5 mg/dl (2.5-4.9); Potassium 5.6 mmol/L (3.5-5.1)
[2020-10-26] MEDS ORDERED: MAGNESIUM SULFATE / D5W 1 GM/100 ML BAG IV ONE (23:09)
[2020-10-27] MEDS: LACTATED RINGER'S 1,000 ML IV SCH ×2 (03:31→16:36)
[2020-10-27 04:01] LABS: iSTAT Allen Test Pass; iSTAT Art Bld Gas pCO2 Correct 64 mmHg (35-46); iSTAT Art Bld Gas pH Corrected 7.214 (7.35-7.45); iSTAT Arterial Blood Gas HCO3 26 meg/L (19-24); iSTAT Arterial Blood Gas pCO2 64 mmHg (35-46); iSTAT Arterial Blood Gas pH 7.22 (7.35-7.45); iSTAT Arterial Blood Gas pO2 84 mmHg (80-95); iSTAT Arterial Blood Gas pO2 C 84; iSTAT Carbon Dioxide 28 mmol/L (24-31); iSTAT FiO2 30 %; iSTAT Hematocrit 32 % (37-47); iSTAT Hemoglobin 10.9 g/dl (12.0-16.0); iSTAT Potassium 5.2 mmol/L (3.3-5.0); iSTAT Site R Radial; iSTAT Sodium 137 mmol/L (135-144)
[2020-10-27 05:00] LABS: Hematocrit (blood only) 33.3 % (37-47); Hemoglobin 9.2 g/dL (12.0-16.0); Immature Granulocytes # (auto) 0.08 K/uL (0.00-0.02); Immature Granulocytes % (auto) 0.6 %; Lymphocytes # (auto) 0.34 K/uL (1.2-3.4); Lymphocytes % (auto) 2.5 %; Mean Corpuscular Hemoglobin 24.2 pg (25-34); Mean Corpuscular Hgb Conc 27.6 g/dL (32-36); Mean Corpuscular Volume 87.6 fL (80-100); Mean Platelet Volume 9.4 fL (7.4-10.4); Monocytes # (auto) 0.42 K/uL (0.11-0.59); Monocytes % (auto) 3.1 %; Neutrophils # (auto) 12.64 K/uL (1.4-6.5); Neutrophils % (auto) 93.8 %; Nucleated RBC % (auto) 1.5 %; Platelet Count 288 K/uL (130-400); RDW Standard Deviation 57.7 fL (36.4-46.3); White Blood Count 13.48 K/uL (4.8-10.8)
[2020-10-27 05:11] LABS: BUN Creatinine Ratio 35.9 (10-20); Calcium 9.3 mg/dl (8.5-10.1); Creatinine Clr Calc Pharmacy 42.8 ml/min; Est GFR (African American) 45.1; Est GFR (Non-African American) 38.9; Phosphorus 3.2 mg/dl (2.5-4.9); Potassium 5.3 mmol/L (3.5-5.1)
[2020-10-27] MEDS: HYDROCORTISONE SOD 50 MG in SYRINGE 0 ML IV SCH ×3 (05:50→16:37)
[2020-10-27] MEDS: PHENYLEPHRINE HCL 40 MG in DEXTROSE 5% 500 ML IV SCH ×2 (05:50→23:22)
--- NOTE | 2020-10-27 07:31 | XRay Report ---
XR chest 1V portable CLINICAL HISTORY: Shortness of breath COMPARISON STUDY: October 26, 2020 FINDINGS: The left-sided internal jugular catheter remains unchanged in position. The cardiac and med iastinal contours remain stable. There is mild elevation of interstitium. An element of mild pulmonar y vascular congestion must be considered. There are increased markings at the left lung base, atelect atic versus infectious/inflammatory. There is minor blunting of the left lateral costophrenic angle s uggesting a trace pleural effusion. Again evident is a left humeral neck fracture.[ IMPRESSION: 1. Mild elevation of interstitium, suggesting mild pulmonary vascular congestion/fluid overload 2. Minor left basilar opacities, atelectatic versus infectious/inflammatory 3. Suspected trace left pleural effusion ACT 112: Negative or not required by law. Electronically signed by: Addy Aguilar M.D. 10/27/2020 7:30 AM
[2020-10-27] MEDS: FAMOTIDINE 20 MG in SYRINGE 3 ML IV SCH (08:22)
--- NOTE | 2020-10-27 08:29 | Electrocardiogram Report ---
Test Reason : Blood Pressure : / mmHG Vent. Rate : 099 BPM Atrial Rate : 101 BPM P-R Int : 000 ms QRS Dur : 064 ms QT Int : 426 ms P-R-T Axes : 000 063 224 degrees QTc Int : 546 ms Atrial fibrillation T wave abnormality, consider inferolateral ischemia Prolonged QT Abnormal ECG When compared with ECG of 26-OCT-2020 07:08, No significant change Confirmed by Irving Acosta ([id number]) on 10/27/2020 8:28:40 AM Referred By: REFERRED SELF Confirmed By:Irving Acosta
[2020-10-27] MEDS: CHOLECALCIFEROL 1,000 UNITS 25 MCG TAB PO SCH (09:19)
[2020-10-27] MEDS: FLUDROCORTISONE ACETATE 0.1 MG TAB PO SCH (09:19)
[2020-10-27] MEDS: SERTRALINE HCL 50 MG TABLET PO SCH (09:20)
[2020-10-27] MEDS: ATORVASTATIN 40 MG TAB PO SCH (09:20)
[2020-10-27 12:05] LABS: Base Excess VBG -1.4 mEq/L; Oxygen Saturation VBG 86.2 %; pH VBG 7.19 (7.36-7.41)
--- NOTE | 2020-10-27 14:05 | Hospitalist Progress Note ---
Date of Service October 27, 2020 Assessment & Plan (1) Atrial fibrillation with rapid ventricular response: #Septic shock in setting of Sepsis POA treated with 5+Liters of NSS bolus and Karlo-synephrine gtt. Patient presented with significant tachycardia resolving status post aggressive IV fluid, beta-denae and digoxin however continued to remain hypotensive necessitating transfer to the ICU where an IJ was placed for administration of pressors. Imaging was suspicious for left lower lobe infiltrate which taken with her clinical history could certainly result in this presentation. -Pressors per ICU protocol -Echo -Compared with 10/27/2015 moderate pulmonary hypertension now apparent otherwise no significant changes, RV systolic pressure elevated at 40 to 50 mmHg. -EF greater than 70%, LV hyperdynamic, LV hypertrophy mild MR -Urine and blood cultures negative. -Treat pneumonia -Monitor on telemetry -Fludrocortisone 0.1 mg every morning/hydrocortisone 50 mg every 6h #Acute Hypercapnic respiratory failure -Off Vent. Now on Onbipap #Metabolic and septic encephalopathy Baseline mental status uncertain, on presentation to the hospital she was confused, not oriented to year, however pleasant and conversive. Skin would certainly be secondary to an underlying infection or her baseline. Will need to obtain collateral information -CT negative for closed head injury #Pneumonia Imaging suggesting a left lower lobe infiltrate, admitting physician was unable to obtain significant history of coughing or production of mucus, fevers or chills. There is no leukocytosis or fever on presentation the emergency department, she was started on ceftriaxone given 2 g. Blood cultures were obtained. Later abx coverage broadened. -Antibiotics per ICU #COPD exacerbation Former smoker, longstanding history of, likely complicating her current presentation. -Required BiPAP overnight, now weaned to oxygen mask on 2 L saturating 91% -Antibiotics as above -Hydrocortisone 50 mg every 6 #Electrolyte derangement -Replete as indicated per ICU protocol #JOHNATHAN Likely secondary to hypotension, expect to resolve as pressures improve. Avoid nephrotoxins #HTN meds on hold - lisinopril #a fib b denae, anticoagulation on hold. received IV dig anticoagulation on hold. no plans for surgery - will discuss resuming it. #Closed fracture of the left proximal humerus Ortho evaluation done. Keep arm anteriorly in sling. No surgery at this time. FENa:NPO while on pressors Code Status:Full DVT PPX:Holding pending ortho evaluation. SCD PT/OT: Will need s/p ortho evaluation Dispo:ICU Paul You MD PGY 2, FCM This chart was completed utilizing [employer] dictation voice recognition software. Grammatical errors, random word insertions, pronoun errors, and in complete sentences are an occasional consequence of the system. Any questions or concerns about the content, text, or information contained within the body of this dictation should be addressed directly to the physician for clarification. (2) Closed fracture of left proximal humerus: (3) Left lower lobe pneumonia: (4) CHI (closed head injury): (5) Leukocytosis: (6) Acute renal failure: (7) Encephalopathy: (8) COPD, mild: (9) Former smoker: (10) Cognitive impairment: (11) Hyperlipidemia: (12) Hypertension: (13) Raynauds phenomenon: (14) Scleroderma: Admission and Anticipated Discharge Date Admission Date: October 25, 2020 Supervising Physician Co-Signing Physician Notes Resident Physician Supervision Note: I independently interviewed and examined the patient and verified the mckeon history and physical, reviewed labs and image studies, discussed the case with the resident Dr. You and agree with the findings and care plan. Subjective Patient lying in bed with BiPAP in place, somnolent. Repeatedly tried calling the patient's name and patient did not respond. Physical Exam Physical Exam: General: Sleeping in bed, BiPAP in place HEENT: Normocephalic atraumatic Neck: Normal to visual inspection, trachea midline Cardiac: Tachycardic otherwise regular rhythm I did not appreciate any significant murmurs rubs or gallops, normal S1, normal S2, negative pedal edema Respiratory: Increased work of breathing, did not appreciate any significant wheezes, rales, rhonchi. Symmetrical chest expansion GI: Bowel sounds present, distended, nontender Skin: No rash Neuro: Unable to assess due to somnolence Psych: Unable to assess due to somnolence Results & Data Results & Data ([facility]) Vital Signs (Past 12 Hours) Vital Signs Temp Pulse Resp BP Pulse Ox 10/27/20 10:38 100 H 30 H 104/45 L 10/27/20 10:30 94 H 28 H 10/27/20 10:07 99 H 27 H 100/69 99 10/27/20 10:00 94 H 26 H 100 10/27/20 09:37 89 22 100/68 10/27/20 09:30 95 H 18 92 10/27/20 09:07 86 22 114/74 100 10/27/20 09:00 86 22 100 10/27/20 08:36 89 20 108/57 L 99 10/27/20 08:31 81 23 105/67 90 10/27/20 08:30 84 20 91 10/27/20 08:26 36.7 C 93 H 23 99/58 L 92 10/27/20 08:21 90 20 100/60 90 10/27/20 08:16 89 20 95/49 L 89 L 10/27/20 08:11 87 20 101/59 L 90 10/27/20 08:06 84 20 95/56 L 92 10/27/20 08:01 80 20 93/63 L 91 10/27/20 08:00 87 20 92 10/27/20 07:56 88 20 100/59 L 90 10/27/20 07:51 88 20 95/53 L 90 10/27/20 07:46 92 H 24 102/62 92 10/27/20 07:41 92 H 20 97/59 L 92 10/27/20 07:36 94 H 20 99/59 L 91 10/27/20 07:31 87 20 95/56 L 90 10/27/20 07:30 86 22 91 10/27/20 07:26 90 20 86/58 L 90 10/27/20 07:21 85 20 104/49 L 92 10/27/20 07:20 99 H 20 89 L 10/27/20 07:16 89 20 94/58 L 93 10/27/20 07:11 87 20 102/49 L 92 10/27/20 07:05 95 H 20 91/58 L 91 10/27/20 07:01 90 19 96/64 L 90 10/27/20 07:00 88 20 90 10/27/20 06:01 96 H 23 113/64 95 10/27/20 05:00 86 20 117/54 L 95 10/27/20 04:00 37.3 C 91 H 22 121/84 92 10/27/20 03:31 100 H 21 91 10/27/20 03:07 86 20 114/68 91 10/27/20 02:36 95 H 22 100/56 L 90 10/27/20 02:22 100 H 21 123/52 L 92 10/27/20 02:06 93 H 21 118/65 93 Resident Activity Tracking Resident Involvement: Resident Care Provided Care Provided: Adult Hospital Medicine
[2020-10-27] MEDS ORDERED: FLUDROCORTISONE ACETATE 0.1 MG TAB PO SCH (15:30)
--- NOTE | 2020-10-27 16:59 | Critical Care Progress Note ---
Date of Service October 27, 2020 Assessment & Plan (1) Admitted to intensive care unit: (2) Atrial fibrillation with rapid ventricular response: (3) Closed fracture of left proximal humerus: (4) Hypercapnic respiratory failure: Reason Critically Ill: 75-year-old female with profound hypotension in the setting of rate controlled A. fib without improvement in blood pressure despite aggressive crystalloid boluses. Concern for LEFT lower lobe pneumonia with possible progression to severe sepsis. Patient to require vasoactive medications for support. 24-hour events: The patient is continued to require intermittent BiPAP for her respiratory acidosis. When she is on BiPAP, she becomes quite lucid but when she comes off her CO2 continues to climb and she has progressive encephalopathy. Recommendations: NEURO - CAM ICU: NEGATIVE Encephalopathy: Uncertain as to patient's baseline as discussed in hospitalist note. Patient seems to do well when she is on BiPAP however her acid-base status never corrects completely back to normal. CARDIAC/VASCULAR - Acute hypotension: Is resolving currently. Wean pressors as tolerated. A. fib with RVR: She is now rate controlled. AV carlitos blocking agents as needed. Holding anticoagulation for now. RESPIRATORY - COPD: PFTs not available. The patient has hypercarbic respiratory failure of unclear etiology. Her sniff and forced vital capacity were slightly low and this may argue for neuromuscular weakness. Diaphragmatic paralysis would be on the differential as well although that entity is not well supported by her chest radiograph. She does not appear overtly obstructed. We will continue BiPAP intermittently although my concern is that BiPAP needs to be a bridge to something and the patient is clearly stated her desires to not pursue intubation or mechanical ventilation which I think is reasonable. Her CO2 is gradually climbing so hopefully with continued nocturnal BiPAP we may see some improvement. She does not have evidence of central apnea or other lack of respiratory drive, and states that her tidal volumes are somewhat low which may be exacerbated by her obesity. However there appears to be an acute component to this of unclear etiology. Diaphragmatic EMG is not available here. Will check CPK and ESR for possible dermato/polymyositis. May consider EMG or neurology consultation. check MG ab. GI/NUTRITION - Okay to advance diet as tolerated pending orthopedic evaluation and cognitive status. Prophylaxis: Famotidine RENAL/LYTES - Acute kidney injury improving. Continue to trend. Will decrease IV fluids in an effort to prevent third spacing - Capps in place - Strict I&Os. ENDO - No h/o DM or Thyroid Dz BSGs per unit protocol. Continue hydrocortisone and Florinef for relative adrenal insufficiency. Some improvement in her pressor requirements. HEME - Stable H&H Will monitor closely for s/s bleeding s/p fall on Eliquis. holding anticoagulation pending Ortho evaluation. ID - Off antibiotics currently. Continue to follow clinically. LINES/IV ACCESS - PIVs x1 DVT PROPHYLAXIS - Hold on chemoprophylaxis and home Eliquis pending Ortho evaluation for possible need for surgical revision of LEFT humeral head fracture. SCDs The patient's overall prognosis is somewhat guarded. 45 min CC time managing life threatening illness. Thank you for allowing us to participate in the care of this patient. Please refer to my attending physician's documentation for any further recommendations. (2) Atrial fibrillation with rapid ventricular response: (3) Closed fracture of left proximal humerus: (4) Left lower lobe pneumonia: (5) CHI (closed head injury): (6) Leukocytosis: (7) Acute renal failure: (8) Encephalopathy: (9) COPD, mild: (10) Former smoker: (11) Cognitive impairment: (12) Hyperlipidemia: (13) Hypertension: (14) Raynauds phenomenon: (15) Scleroderma: Admission and Anticipated Discharge Date Admission Date: October 25, 2020 Subjective Patient seen and examined. She is much more lucid when she is on BiPAP but does not have any specific complaints. She does clearly state to me as well as on several occasions to the ICU nurse that she does not want to be intubated or go on a mechanical ventilator and would not want CPR in the event of a cardiac arrest. This was discussed with her on several occasions and she clearly states that this is her preference. Unfortunately she has had issues with requiring BiPAP intermittently. Review of Systems Review of Systems: Unobtainable due to cognitive status Physical Exam Physical Exam: VITAL SIGNS - Vital signs and nursing notes were reviewed. GENERAL - 75-year-old female appearing her stated age who is in no acute distress. Communicates well with provider and answers questions appropriately. SKIN - Without rashes. HEAD - NC/AT. EYES - PERRL with EOMI bilaterally. Sclera anicteric. Palpebral conjunctiva pink and moist with no injection noted. EARS - No deformities of external structures noted on gross examination bilat erally. NOSE - Midline and without cyanosis. No epistaxis or purulent drainage noted. MOUTH/OROPHARYNX - Without perioral cyanosis. Buccal mucosa pink and moist and without leukoplakia. Tongue midline with equal elevation of palate bilaterally. NECK - Neck with FROM. Supple to palpation. No lymphadenopathy noted. No nuchal rigidity. LUNGS - Chest wall symmetric without accessory muscle use, intercostals retractions, or central cyanosis. Diminished breath sounds throughout. No adventitious breath sounds appreciated. CARDIAC - RRR with S1/S2. No murmur, rubs, or gallops appreciated. ABDOMEN - Abdominal contour obese without pulsations or visible masses. BS normoactive all four quadrants. No tenderness, palpable masses, hepatosplenomegaly, or ascites noted. EXTREMITIES - No clubbing or peripheral cyanosis. No pretibial edema present. Diminished radial and dorsalis pedis pulses bilaterally. Tenderness to palpation to the LEFT-sided shoulder girdle. NEUROLOGIC - Cranial nerves II through XII grossly intact. Sensory intact to light touch throughout. PSYCH -patient awake and alert. She initially thinks that she is at home, but then corrects her self and states that she is in the hospital. She initially felt the year was 2022, but admits that she is not completely certain. She is able to provide events from her fall earlier in the day. Additionally, she is able to describe her home situation where she receives at home care with a surgical manager by the name of "Laila". She also reports that she has a neighbor that checks on her regularly as well. Results & Data Results & Data ([facility]) Vital Signs (Past 12 Hours) Vital Signs Temp Pulse Resp BP Pulse Ox 10/27/20 14:07 95 H 21 95/60 L 97 10/27/20 14:05 96 10/27/20 14:00 110 H 25 H 99 10/27/20 13:37 107 H 19 91/50 L 99 10/27/20 13:30 99 H 17 99 10/27/20 13:07 105 H 17 79/51 L 99 10/27/20 13:00 105 H 19 99 10/27/20 12:37 113 H 19 89/52 L 100 10/27/20 12:30 107 H 19 99 10/27/20 12:08 112 H 17 92/64 L 100 10/27/20 12:00 109 H 21 100 10/27/20 11:37 97 H 25 H 74/57 L 100 10/27/20 11:30 36.7 C 99 H 26 H 90 10/27/20 11:07 99 H 21 103/60 99 10/27/20 11:00 102 H 21 99 10/27/20 10:39 100 H 26 H 10/27/20 10:38 100 H 30 H 104/45 L 10/27/20 10:30 94 H 28 H 10/27/20 10:07 99 H 27 H 100/69 99 10/27/20 10:00 94 H 26 H 100 10/27/20 09:37 89 22 100/68 10/27/20 09:30 95 H 18 92 10/27/20 09:07 86 22 114/74 100 10/27/20 09:00 86 22 100 10/27/20 08:36 89 20 108/57 L 99 10/27/20 08:31 81 23 105/67 90 10/27/20 08:30 84 20 91 10/27/20 08:26 36.7 C 93 H 23 99/58 L 92 10/27/20 08:21 90 20 100/60 90 10/27/20 08:16 89 20 95/49 L 89 L 10/27/20 08:11 87 20 101/59 L 90 10/27/20 08:06 84 20 95/56 L 92 10/27/20 08:01 80 20 93/63 L 91 10/27/20 08:00 87 20 92 10/27/20 07:56 88 20 100/59 L 90 10/27/20 07:51 88 20 95/53 L 90 10/27/20 07:46 92 H 24 102/62 92 10/27/20 07:41 92 H 20 97/59 L 92 10/27/20 07:36 94 H 20 99/59 L 91 10/27/20 07:31 87 20 95/56 L 90 10/27/20 07:30 86 22 91 10/27/20 07:26 90 20 86/58 L 90 10/27/20 07:21 85 20 104/49 L 92 10/27/20 07:20 99 H 20 89 L 10/27/20 07:16 89 20 94/58 L 93 10/27/20 07:11 87 20 102/49 L 92 10/27/20 07:05 95 H 20 91/58 L 91 10/27/20 07:01 90 19 96/64 L 90 10/27/20 07:00 88 20 90 10/27/20 06:01 96 H 23 113/64 95 10/27/20 05:00 86 20 117/54 L 95 Laboratory Results 10/27/20 11:38 VBG pH 7.19 L VBG pCO2 74 H VBG pO2 55 VBG HCO3 28 VBG O2 Saturation 86.2 VBG Base Excess -1.4 10/27/20 04:30 10/27/20 04:30 Diagnostic Findings No new imaging Coding Level of Care Code Critical Care 1st 30-74 mins Diagnoses Admitted to intensive care unit Z78.9 Atrial fibrillation with rapid ventricular response I48.91 Closed fracture of left proximal humerus S42.202A Hypercapnic respiratory failure J96.92 Time Spent (min) 40
[2020-10-28] MEDS: HYDROCORTISONE SOD 50 MG in SYRINGE 0 ML IV SCH ×2 (00:29→05:35)
[2020-10-28 04:49] LABS: Immature Granulocytes # (auto) 0.03 K/uL (0.00-0.02); Immature Granulocytes % (auto) 0.2 %; Lymphocytes # (auto) 0.41 K/uL (1.2-3.4); Lymphocytes % (auto) 3.3 %; Mean Corpuscular Hemoglobin 24.5 pg (25-34); Mean Corpuscular Hgb Conc 28.1 g/dL (32-36); Mean Corpuscular Volume 87.2 fL (80-100); Mean Platelet Volume 9.1 fL (7.4-10.4); Monocytes # (auto) 0.69 K/uL (0.11-0.59); Monocytes % (auto) 5.6 %; Neutrophils # (auto) 11.14 K/uL (1.4-6.5); Neutrophils % (auto) 90.9 %; Nucleated RBC # (auto) 0.07 K/uL (0-0); Nucleated RBC % (auto) 0.5 %; Platelet Count 251 K/uL (130-400); RDW Coefficient of Variation 17.8 % (11.5-14.5); RDW Standard Deviation 56.6 fL (36.4-46.3); Red Blood Count 3.67 M/uL (4.2-5.4); White Blood Count 12.27 K/uL (4.8-10.8)
[2020-10-28 05:10] LABS: BUN Creatinine Ratio 38.1 (10-20); Calcium 9.4 mg/dl (8.5-10.1); Creatinine Clr Calc Pharmacy 58.9 ml/min; Est GFR (African American) 65.1; Est GFR (Non-African American) 56.1; Magnesium 1.9 mg/dl (1.8-2.4); Phosphorus 2.8 mg/dl (2.5-4.9); Potassium 5.4 mmol/L (3.5-5.1)
[2020-10-28] MEDS: LACTATED RINGER'S 1,000 ML IV SCH (05:34)
--- NOTE | 2020-10-28 08:09 | XRay Report ---
XR chest 1V portable CLINICAL HISTORY: Shortness of breath COMPARISON STUDY: October 27, 2020 FINDINGS: The cardiac and mediastinal contours remain stable. There is a left-sided IJ catheter uncha nged in position. Small subpulmonic pleural effusions are suspected. Mild pulmonary vascular congesti on is again suspected. There are persistent airspace opacities the left medial lung base, likely atel ectatic. There is a proximal left humeral fracture[ IMPRESSION: 1. Suspected asymmetric mild congestive failure/fluid overload 2. Left basilar opacities likely atelectatic. 3. Suspected small subpulmonic pleural effusions ACT 112: Negative or not required by law. Electronically signed by: Addy Aguilar M.D. 10/28/2020 8:07 AM
[2020-10-28] MEDS: FAMOTIDINE 20 MG in SYRINGE 3 ML IV SCH (09:40)
[2020-10-28] MEDS: CHOLECALCIFEROL 1,000 UNITS 25 MCG TAB PO SCH (09:41)
[2020-10-28] MEDS: ATORVASTATIN 40 MG TAB PO SCH (09:41)
[2020-10-28] MEDS: FLUDROCORTISONE ACETATE 0.1 MG TAB PO SCH (09:41)
--- NOTE | 2020-10-28 10:26 | Hospitalist Progress Note ---
Date of Service October 28, 2020 Assessment & Plan (1) Atrial fibrillation with rapid ventricular response: #Septic shock in setting of Sepsis POA treated with 5+Liters of NSS bolus and Karlo-synephrine gtt. Patient presented with significant tachycardia resolving status post aggressive IV fluid, beta-denae and digoxin however continued to remain hypotensive necessitating transfer to the ICU where an IJ was placed for administration of pressors. Imaging was suspicious for left lower lobe infiltrate which taken with her clinical history could certainly result in this presentation. -No longer requiring pressors, weaning hydrocortisone as tolerated -Echo -Compared with 10/27/2015 moderate pulmonary hypertension now apparent otherwise no significant changes, RV systolic pressure elevated at 40 to 50 mmHg. -EF greater than 70%, LV hyperdynamic, LV hypertrophy mild MR -Monitor on telemetry #Metabolic and septic encephalopathy Baseline mental status uncertain, on presentation to the hospital she was confused, not oriented to year, however pleasant and conversive. Skin would cer tainly be secondary to an underlying infection or her baseline. Will need to obtain collateral information -CT negative for closed head injury #Acute Respiratory failure with hypercapnia (pneumonia versus neuromuscular dysfunction) CPK and ESR normal, myasthenia labs pending -Nightly BiPAP for hypercapnia, case management arranging for nocturnal noninvasive positive pressure ventilation #COPD exacerbation Former smoker, longstanding history of, likely complicating her current presentation. -Still requiring BiPAP at night and at rest -Off antibiotics currently #Electrolyte derangement -Replete as indicated per ICU protocol #JOHNATHAN Likely secondary to hypotension, expect to resolve as pressures improve. Avoid nephrotoxins -Resolved, holding IVF #HTN meds on hold - lisinopril #a fib Currently rate controlled, heparin started as oral anticoagulation is resumed #Closed fracture of the left proximal humerus Original presenting symptom FENa: Advancing diet as tolerated Code Status:Full DVT PPX: Heparin, resuming oral PT/OT: Ortho recommending medical management Dispo:ICU, Paul You MD PGY 2, FCM This chart was completed utilizing [employer] voice recognition software. Grammatical errors, random word insertions, pronoun errors, and in complete sentences are an occasional consequence of the system. Any questions or concerns about the content, text, or information contained within the body of this dictation should be addressed directly to the physician for clarification. Admission and Anticipated Discharge Date Admission Date: October 25, 2020 Supervising Physician Co-Signing Physician Notes Resident Physician Supervision Note: I independently interviewed and examined the patient and verified the mckeon history and physical, reviewed labs and image studies, discussed the case with the resident Dr. You and agree with the findings and care plan. Subjective Patient lying in bed with BiPAP in place. Patient more awake today and responsive to my questions, patient reporting that she is not in any pain, and continues to improve. Patient did not have any questions or other acute concerns. Physical Exam Physical Exam: General: In no acute distress BiPAP in place HEENT: Normocephalic atraumatic Neck: Normal to visual inspection, trachea midline Cardiac: Tachycardic otherwise regular rhythm I did not appreciate any significant murmurs rubs or gallops, normal S1, normal S2, negative pedal edema Respiratory: Increased work of breathing improving, did not appreciate any significant wheezes, rales, rhonchi. Symmetrical chest expansion GI: Bowel sounds present, distended, nontender Skin: No rash Neuro: Unable to assess due to somnolence Psych: Unable to assess due to somnolence Results & Data Results & Data ([facility]) Vital Signs (Past 12 Hours) Vital Signs Pulse Resp BP Pulse Ox 10/28/20 07:15 97 H 20 100 10/28/20 04:47 99 H 20 100 10/28/20 00:38 103 H 20 106/72 100 10/28/20 00:30 91 H 23 99 10/28/20 00:08 100 H 35 H 107/68 100 10/28/20 00:00 100 H 27 H 99 10/27/20 23:59 98 H 10/27/20 23:38 97 H 28 H 110/61 99 10/27/20 23:30 97 H 24 99 10/27/20 23:08 110 H 22 91/58 L 99 10/27/20 23:00 99 H 21 99 10/27/20 22:38 89 21 99/52 L 10/27/20 22:30 96 H 23 83 L Laboratory Results 10/28/20 10/28/20 10/28/20 Range/Units 04:32 04:32 04:17 WBC 12.27 H (4.8-10.8) K/uL RBC 3.67 L (4.2-5.4) M/uL Hgb 9.0 L (12.0-16.0) g/dL Hct 32.0 L (37-47) % MCV 87.2 (80-100) fL MCH 24.5 L (25-34) pg MCHC 28.1 L (32-36) g/dL RDW Std Deviation 56.6 H (36.4-46.3) fL RDW Coeff of Andrae 17.8 H (11.5-14.5) % Plt Count 251 (130-400) K/uL MPV 9.1 (7.4-10.4) fL Immature Gran % (Auto) 0.2 % Neut % (Auto) 90.9 % Lymph % (Auto) 3.3 % Hyde % (Auto) 5.6 % Eos % (Auto) 0.0 % Baso % (Auto) 0.0 % Neut # (Auto) 11.14 H (1.4-6.5) K/uL Lymph # (Auto) 0.41 L (1.2-3.4) K/uL Hyde # (Auto) 0.69 H (0.11-0.59) K/uL Eos # (Auto) 0.00 (0-0.5) K/uL Baso # (Auto) 0.00 (0-0.2) K/uL Immature Gran # (Auto) 0.03 H (0.00-0.02) K/uL Absolute Nucleated RBC 0.07 H (0-0) K/uL Nucleated RBC % (auto) 0.5 % ESR (0-21) mm/hr Sample Site R Radial POC pH 7.25 L (7.35-7.45) POC pCO2 67 H (35-46) mmHg POC pO2 132 H (80-95) mmHg POC HCO3 29 H (19-24) paul/L POC Total CO2 31 (24-31) mmol/L POC Base Excess 2.0 H (-9-1.8) paul/L POC ABG O2 Sat 98.0 H (90-95) % Anshu Test Pass O2 Delivery Device BIPAP POC O2 Rate 20 POC FiO2 40 % IPAP 18 Sodium 140 (136-145) mmol/L Potassium 5.4 H (3.5-5.1) mmol/L Chloride 109 H (98-107) mmol/L Carbon Dioxide 30 (21-32) mmol/L Anion Gap 1.0 L (3-11) BUN 38 H (7-18) mg/dl Creatinine 0.99 D (0.6-1.2) mg/dl Est Cr Clr Drug Dosing 58.9 ml/min Est GFR ( Amer) 65.1 Est GFR (Non-Af Amer) 56.1 BUN/Creatinine Ratio 38.1 H (10-20) Glucose 99 (70-99) mg/dl POC Glucose (70-99) mg/dl Calcium 9.4 (8.5-10.1) mg/dl Phosphorus 2.8 (2.5-4.9) mg/dl Magnesium 1.9 (1.8-2.4) mg/dl Total Creatine Kinase (26-192) U/L Striated Muscle Ab Ttr Striated Muscle Ab Acetylchol Rcpt Bind Ab 10/27/20 10/27/20 10/27/20 Range/Units 17:14 17:14 17:14 WBC (4.8-10.8) K/uL RBC (4.2-5.4) M/uL Hgb (12.0-16.0) g/dL Hct (37-47) % MCV (80-100) fL MCH (25-34) pg MCHC (32-36) g/dL RDW Std Deviation (36.4-46.3) fL RDW Coeff of Andrae (11.5-14.5) % Plt Count (130-400) K/uL MPV (7.4-10.4) fL Immature Gran % (Auto) % Neut % (Auto) % Lymph % (Auto) % Hyde % (Auto) % Eos % (Auto) % Baso % (Auto) % Neut # (Auto) (1.4-6.5) K/uL Lymph # (Auto) (1.2-3.4) K/uL Hyde # (Auto) (0.11-0.59) K/uL Eos # (Auto) (0-0.5) K/uL Baso # (Auto) (0-0.2) K/uL Immature Gran # (Auto) (0.00-0.02) K/uL Absolute Nucleated RBC (0-0) K/uL Nucleated RBC % (auto) % ESR (0-21) mm/hr Sample Site POC pH (7.35-7.45) POC pCO2 (35-46) mmHg POC pO2 (80-95) mmHg POC HCO3 (19-24) paul/L POC Total CO2 (24-31) mmol/L POC Base Excess (-9-1.8) paul/L POC ABG O2 Sat (90-95) % Anshu Test O2 Delivery Device POC O2 Rate POC FiO2 % IPAP Sodium (136-145) mmol/L Potassium (3.5-5.1) mmol/L Chloride (98-107) mmol/L Carbon Dioxide (21-32) mmol/L Anion Gap (3-11) BUN (7-18) mg/dl Creatinine (0.6-1.2) mg/dl Est Cr Clr Drug Dosing ml/min Est GFR ( Amer) Est GFR (Non-Af Amer) BUN/Creatinine Ratio (10-20) Glucose (70-99) mg/dl POC Glucose 115 H (70-99) mg/dl Calcium (8.5-10.1) mg/dl Phosphorus (2.5-4.9) mg/dl Magnesium (1.8-2.4) mg/dl Total Creatine Kinase 58 (26-192) U/L Striated Muscle Ab Ttr Pending Striated Muscle Ab Pending Acetylchol Rcpt Bind Ab Pending 10/27/20 Range/Units 17:14 WBC (4.8-10.8) K/uL RBC (4.2-5.4) M/uL Hgb (12.0-16.0) g/dL Hct (37-47) % MCV (80-100) fL MCH (25-34) pg MCHC (32-36) g/dL RDW Std Deviation (36.4-46.3) fL RDW Coeff of Andrae (11.5-14.5) % Plt Count (130-400) K/uL MPV (7.4-10.4) fL Immature Gran % (Auto) % Neut % (Auto) % Lymph % (Auto) % Hyde % (Auto) % Eos % (Auto) % Baso % (Auto) % Neut # (Auto) (1.4-6.5) K/uL Lymph # (Auto) (1.2-3.4) K/uL Hyde # (Auto) (0.11-0.59) K/uL Eos # (Auto) (0-0.5) K/uL Baso # (Auto) (0-0.2) K/uL Immature Gran # (Auto) (0.00-0.02) K/uL Absolute Nucleated RBC (0-0) K/uL Nucleated RBC % (auto) % ESR 12 (0-21) mm/hr Sample Site POC pH (7.35-7.45) POC pCO2 (35-46) mmHg POC pO2 (80-95) mmHg POC HCO3 (19-24) paul/L POC Total CO2 (24-31) mmol/L POC Base Excess (-9-1.8) paul/L POC ABG O2 Sat (90-95) % Anshu Test O2 Delivery Device POC O2 Rate POC FiO2 % IPAP Sodium (136-145) mmol/L Potassium (3.5-5.1) mmol/L Chloride (98-107) mmol/L Carbon Dioxide (21-32) mmol/L Anion Gap (3-11) BUN (7-18) mg/dl Creatinine (0.6-1.2) mg/dl Est Cr Clr Drug Dosing ml/min Est GFR ( Amer) Est GFR (Non-Af Amer) BUN/Creatinine Ratio (10-20) Glucose (70-99) mg/dl POC Glucose (70-99) mg/dl Calcium (8.5-10.1) mg/dl Phosphorus (2.5-4.9) mg/dl Magnesium (1.8-2.4) mg/dl Total Creatine Kinase (26-192) U/L Striated Muscle Ab Ttr Striated Muscle Ab Acetylchol Rcpt Bind Ab Medications Administered Current Inpatient Medications Acetaminophen (Acetaminophen 325 Mg Tab) 650 mg PO Q4H PRN PRN Reason: Pain or Fever Stop: 11/24/20 16:20 Albuterol (Albuterol Hfa 8 Gm Inhaler) 1 puffs INH QID PRN PRN Reason: shortness of breath or wheezin Stop: 11/24/20 16:20 Atorvastatin Calcium (Atorvastatin 40 Mg Tab) 40 mg PO DAILY GAURAV Stop: 11/25/20 08:59 Last Admin: 10/28/20 09:41 Dose: 40 mg Documented by: Bisacodyl (Bisacodyl 10 Mg Supp) 10 mg [place] DAILY PRN PRN Reason: Constipation Stop: 11/25/20 00:19 Fludrocortisone Acetate (Fludrocortisone Acetate 0.1 Mg Tab) 0.1 mg PO QAM [facility] Stop: 11/25/20 08:59 Last Admin: 10/28/20 09:41 Dose: 0.1 mg Documented by: Hydrocortisone (Hydrocortisone 10 Mg Tab) 50 mg PO Q8 GAURAV Stop: 11/27/20 13:59 Last Admin: 10/28/20 14:18 Dose: 50 mg Documented by: Phenylephrine HCl 40 mg/ (Dextrose) 504 mls @ 0 mls/hr IV .Q0M [facility]; Protocol Stop: 11/25/20 15:59 Last Titration: 10/28/20 08:40 Dose: 0 mcg/kg/min, 0 mls/hr Documented by: Heparin Sodium/Dextrose (Heparin Sodium/Dextrose) 25,000 units in 500 mls @ 27 mls/hr IV .[id number] [facility]; Protocol Stop: 11/27/20 10:44 Last Admin: 10/28/20 12:02 Dose: 1,350 units/hr, 27 mls/hr Documented by: Magnesium Hydroxide (Magnesium Hydroxide Susp 30 Ml Udc) 30 ml PO Q6H PRN PRN Reason: Constipation Stop: 11/25/20 00:19 Ondansetron HCl (Ondansetron Inj 2 Mg/Ml 2 Ml Vial) 4 mg IV Q6H PRN PRN Reason: Nausea Stop: 11/24/20 16:20 Polyethylene Glycol (Polyethylene (Miralax) 17 Gm Pack) 17 gm PO DAILY PRN PRN Reason: Constipation Stop: 11/25/20 00:19 Sertraline HCl (Sertraline Hcl 50 Mg Tablet) 25 mg PO DAILY GAURAV Stop: 11/25/20 08:59 Last Admin: 10/27/20 09:20 Dose: 25 mg Documented by: Vitamin D (Cholecalciferol 1,000 Units 25 Mcg Tab) 2,000 units PO DAILY [facility] Stop: 11/25/20 08:59 Last Admin: 10/28/20 09:41 Dose: 2,000 units Documented by: Resident Activity Tracking Resident Involvement: Resident Care Provided Care Provided: Adult [facility] Medicine
--- NOTE | 2020-10-28 11:21 | Critical Care Progress Note ---
Date of Service October 28, 2020 Assessment & Plan (1) Admitted to intensive care unit: (2) Atrial fibrillation with rapid ventricular response: (3) Closed fracture of left proximal humerus: (4) Hypercapnic respiratory failure: Reason Critically Ill: 75-year-old female with profound hypotension in the setting of rate controlled A. fib without improvement in blood pressure despite aggressive crystalloid boluses. Concern for LEFT lower lobe pneumonia with possible progression to severe sepsis. Patient to require vasoactive medications for support. 24-hour events: The patient is continued to require intermittent BiPAP for her respiratory acidosis. When she is on BiPAP, she becomes quite lucid but when she comes off her CO2 continues to climb and she has progressive encephalopathy. Recommendations: NEURO - CAM ICU: NEGATIVE Encephalopathy: Improved this morning. Continue to follow clinically. CARDIAC/VASCULAR - Acute hypotension:Resolved. off pressors. Wean hydrocortisone as tolerated. A. fib with RVR: She is now rate controlled. AV carlitos blocking agents as needed. Appears that the shoulder will be undergoing nonoperative management so will proceed with initiation of heparin infusion and transition to oral anticoagulation once stable. RESPIRATORY - COPD: PFTs not available. The patient has hypercarbic respiratory failure of unclear etiology. Her sniff and forced vital capacity were slightly low and this may argue for neuromuscular weakness. Diaphragmatic paralysis would be on the differential as well although that entity is not well supported by her chest radiograph. She does not appear overtly obstructed. Continue BiPAP nightly. She does have underlying evidence of neuromuscular disease with a low negative inspiratory force and a rising PCO2 which should qualify her for nightly BiPAP leaving the hospital. Outpatient sleep study recommended. Her CO2 is gradually climbing so hopefully with continued nocturnal BiPAP we may see some improvement. She does not have evidence of central apnea or other lack of respiratory drive, and states that her tidal volumes are somewhat low which may be exacerbated by her obesity. However there appears to be an acute component to this of unclear etiology. Diaphragmatic EMG is not available here. CPK and ESR were normal so seems less likely to have dermatomyositis or polymyositis. Myasthenia labs pending however this also appears less likely. If the patient stabilizes, may consider repeating assessment of respiratory muscle strength although her cognitive function does somewhat complicate these measurements. Could perform sniff test. Hopefully nightly bipap will be effective in improving her hypercapnia. check VBG in AM. Discussed with case management to potentially get the patient qualified for nocturnal noninvasive positive pressure ventilation as she would qualify given her low NIF, neuromuscular dis ease, and hypercarbia. GI/NUTRITION - Advancing diet as tolerated RENAL/LYTES - Acute kidney injury resolved. Hold additional IVF. - discontinue patten ENDO - No h/o DM or Thyroid Dz BSGs per unit protocol. Weaning hydrocortisone and Florinef for relative adrenal insufficiency. HEME - Stable H&H Starting heparin. transition to oral anticoagulation if felt to be reasonable when stable ID - Off antibiotics currently. Continue to follow clinically. LINES/IV ACCESS - PIVs x1 PT, OT and OOB as tolerated. Will need outpatient ortho follow up with shoulder films in 1-2 weeks. if does well and is stable on nightly bipap, can likely transfer to floor with hospitalists. (2) Atrial fibrillation with rapid ventricular response: (3) Closed fracture of left proximal humerus: (4) Left lower lobe pneumonia: (5) CHI (closed head injury): (6) Leukocytosis: (7) Acute renal failure: (8) Encephalopathy: (9) COPD, mild: (10) Former smoker: (11) Cognitive impairment: (12) Hyperlipidemia: (13) Hypertension: (14) Raynauds phenomenon: (15) Scleroderma: Admission and Anticipated Discharge Date Admission Date: October 25, 2020 Subjective Patient seen and examined. She is doing relatively well this morning. She tolerated BiPAP overnight. She has no complaints this morning and is on a facemask. Review of Systems Review of Systems: All systems reviewed & are unremarkable except as noted in HPI & below Physical Exam Physical Exam: VITAL SIGNS - Vital signs and nursing notes were reviewed. GENERAL - 75-year-old female appearing her stated age who is in no acute distress. Communicates well with provider and answers questions appropriately. SKIN - Without rashes. HEAD - NC/AT. EYES - PERRL with EOMI bilaterally. Sclera anicteric. Palpebral conjunctiva pink and moist with no injection noted. EARS - No deformities of external structures noted on gross examination bilaterally. NOSE - Midline and without cyanosis. No epistaxis or purulent drainage noted. MOUTH/OROPHARYNX - Without perioral cyanosis. Buccal mucosa pink and moist and without leukoplakia. Tongue midline with equal elevation of palate bilaterally. NECK - Neck with FROM. Supple to palpation. No lymphadenopathy noted. No nuchal rigidity. LUNGS - Chest wall symmetric without accessory muscle use, intercostals retract ions, or central cyanosis. Diminished breath sounds throughout. No adventitious breath sounds appreciated. CARDIAC - RRR with S1/S2. No murmur, rubs, or gallops appreciated. ABDOMEN - Abdominal contour obese without pulsations or visible masses. BS normoactive all four quadrants. No tenderness, palpable masses, hepatosplenomegaly, or ascites noted. EXTREMITIES - No clubbing or peripheral cyanosis. No pretibial edema present. Diminished radial and dorsalis pedis pulses bilaterally. Tenderness to palpation to the LEFT-sided shoulder girdle. NEUROLOGIC - Cranial nerves II through XII grossly intact. Sensory intact to light touch throughout. PSYCH -patient awake and alert. She initially thinks that she is at home, but then corrects her self and states that she is in the hospital. She initially felt the year was 2022, but admits that she is not completely certain. She is able to provide events from her fall earlier in the day. Additionally, she is able to describe her home situation where she receives at home care with a electronic imager by the name of "Laila". She also reports that she has a neighbor that checks on her regularly as well. Results & Data Results & Data ([facility]) Vital Signs (Past 12 Hours) Vital Signs Pulse Resp BP Pulse Ox 10/28/20 10:47 102 H 10/28/20 07:15 97 H 20 100 10/28/20 04:47 99 H 20 100 10/28/20 00:38 103 H 20 106/72 100 10/28/20 00:30 91 H 23 99 10/28/20 00:08 100 H 35 H 107/68 100 10/28/20 00:00 100 H 27 H 99 10/27/20 23:59 98 H 10/27/20 23:38 97 H 28 H 110/61 99 10/27/20 23:30 97 H 24 99 Laboratory Results 10/28/20 04:32 10/28/20 04:32 Diagnostic Findings No new imaging. Coding Level of Care Code 52281 Subseq Hosp Care Lvl 3 Diagnoses Admitted to intensive care unit Z78.9 Atrial fibrillation with rapid ventricular response I48.91 Closed fracture of left proximal humerus S42.202A Hypercapnic respiratory failure J96.92
[2020-10-28] MEDS: HEPARIN SODIUM/DEXTROSE 25,000 UNITS/500 ML BAG IV SCH (12:02)
[2020-10-28] MEDS: HYDROCORTISONE 10 MG TAB PO SCH ×2 (14:18→22:45)
[2020-10-28 14:59] LABS: iSTAT Allen Test Pass; iSTAT Arterial Blood Gas HCO3 29 meg/L (19-24); iSTAT Arterial Blood Gas pCO2 67 mmHg (35-46); iSTAT Arterial Blood Gas pH 7.25 (7.35-7.45); iSTAT Arterial Blood Gas pO2 132 mmHg (80-95); iSTAT Carbon Dioxide 31 mmol/L (24-31); iSTAT FiO2 40 %; iSTAT Site R Radial
[2020-10-28 18:27] LABS: Partial Thromboplastin Ratio 2.2
[2020-10-28 18:32] LABS: Partial Thromboplastin Time 58.9 Seconds (21.0-31.0)
[2020-10-29 04:53] LABS: Base Excess VBG 2.2 mEq/L; Oxygen Saturation VBG 83.8 %; pH VBG 7.23 (7.36-7.41)
[2020-10-29 05:08] LABS: Hematocrit (blood only) 30.3 % (37-47); Hemoglobin 8.5 g/dL (12.0-16.0); Immature Granulocytes # (auto) 0.02 K/uL (0.00-0.02); Immature Granulocytes % (auto) 0.3 %; Lymphocytes # (auto) 0.44 K/uL (1.2-3.4); Lymphocytes % (auto) 5.8 %; Mean Corpuscular Hemoglobin 24.1 pg (25-34); Mean Corpuscular Hgb Conc 28.1 g/dL (32-36); Mean Corpuscular Volume 86.1 fL (80-100); Mean Platelet Volume 8.8 fL (7.4-10.4); Monocytes # (auto) 0.35 K/uL (0.11-0.59); Monocytes % (auto) 4.6 %; Neutrophils # (auto) 6.76 K/uL (1.4-6.5); Neutrophils % (auto) 89.3 %; Platelet Count 149 K/uL (130-400); RDW Coefficient of Variation 17.6 % (11.5-14.5); Red Blood Count 3.52 M/uL (4.2-5.4); White Blood Count 7.57 K/uL (4.8-10.8)
[2020-10-29 05:10] LABS: Calcium 9.4 mg/dl (8.5-10.1); Creatinine Clr Calc Pharmacy 67.6 ml/min; Est GFR (Non-African American) 64.7; Phosphorus 2.9 mg/dl (2.5-4.9); Potassium 5.3 mmol/L (3.5-5.1)
[2020-10-29] MEDS: HYDROCORTISONE 10 MG TAB PO SCH ×3 (06:21→19:59)
[2020-10-29] MEDS: HEPARIN SODIUM/DEXTROSE 25,000 UNITS/500 ML BAG IV SCH (06:21)
[2020-10-29 06:38] LABS: Partial Thromboplastin Ratio > 5.3
[2020-10-29 06:45] LABS: Partial Thromboplastin Time > 139.0 Seconds (21.0-31.0)
--- NOTE | 2020-10-29 07:20 | Hospitalist Progress Note ---
Date of Service October 29, 2020 Assessment & Plan (1) Atrial fibrillation with rapid ventricular response: #Septic shock in setting of Sepsis POA treated with 5+Liters of NSS bolus and Karlo-synephrine gtt. (Resolved) Patient presented with significant tachycardia resolving status post aggressive IV fluid, beta-denae and digoxin however continued to remain hypotensive necessitating transfer to the ICU where an IJ was placed for administration of pressors. Imaging was suspicious for left lower lobe infiltrate which taken with her clinical history could certainly result in this presentation. The underlying etiology of her shock is not clear. Regardless she continues to improve. Monitor clinically -No longer requiring pressors, weaning hydrocortisone as tolerated -Echo -Compared with 10/27/2015 moderate pulmonary hypertension now apparent otherwise no significant changes, RV systolic pressure elevated at 40 to 50 mmHg. -EF greater than 70%, LV hyperdynamic, LV hypertrophy mild MR -Downgraded from ICU to PCU -Wean hydrocortisone/fludrocortisone as tolerated #a fib with RVR Currently rate controlled, on heparin drip currently - transition to oral anticoagulation tomorrow #COPD exacerbation Former smoker, longstanding history of, likely complicating her current presentation. Likely will require continue respiratory support as she continues to improve. -Nightly BiPAP for hypercapnia, case management arranging for nocturnal noninvasive positive pressure ventilation -Albuterol 1 puff 4 times daily -Off antibiotics currently -Pulmonology is consulted following the recommendations. #JOHNATHAN (Resolved) Likely secondary to hypotension, expect to resolve as pressures improve. Avoid nephrotoxins -Resolved, holding IVF #HTN meds on hold - lisinopril #Closed fracture of the left proximal humerus Orthopedics was consulted recommending medical management. -Sling in place FENa: Advancing diet as tolerated Code Status:Full DVT PPX: Heparin, resume oral anticoagulation tomorrow PT/OT: Ortho recommending medical management, PT OT consult when able Dispo: U Paul You MD PGY 2, FCM This chart was completed utilizing [employer] voice recognition software. Grammatical errors, random word insertions, pronoun errors, and in complete sentences are an occasional consequence of the system. Any questions or concern s about the content, text, or information contained within the body of this dictation should be addressed directly to the physician for clarification. Admission and Anticipated Discharge Date Admission Date: October 25, 2020 Supervising Physician Co-Signing Physician Notes Resident Physician Supervision Note: I independently interviewed and examined the patient and verified the mckeon history and physical, reviewed labs and image studies, discussed the case with the resident Dr. You and agree with the findings and care plan. Subjective Patient more awake and alert this morning, intermittently responsive to my questions, I did have to arouse her to wake her. However she reports feeling better, and her symptoms improving. No acute concerns or complaints. Physical Exam Physical Exam: General: Lying in bed with OxiMax in place, intermittently arousable HEENT: Normocephalic atraumatic Neck: Normal to visual inspection Cardiac: Regular rate and rhythm normal S1 normal S2, I did not appreciate significant murmurs rubs or gallops, 1+ pedal edema bilaterally, Respiratory: I did not appreciate any significant wheezes, rales, rhonchi symmetrical chest expansion, slightly increased work of breathing GI: Soft, nontender, nondistended, bowel sounds present MSK: Moves all extremities Neuro: Alert but not oriented Results & Data Results & Data ([facility]) Vital Signs (Past 12 Hours) Vital Signs Temp Pulse Resp BP Pulse Ox 10/29/20 05:09 92 H 21 112/80 99 10/29/20 05:00 96 H 19 98 10/29/20 04:40 100 H 21 99 10/29/20 04:39 102 H 20 109/66 99 10/29/20 04:30 98 H 23 99 10/29/20 04:09 100 H 21 104/64 98 10/29/20 04:00 36.7 C 96 H 20 99 10/29/20 03:39 98 H 22 105/69 98 10/29/20 03:30 100 H 19 97 10/29/20 03:09 92 H 25 H 114/67 99 10/29/20 03:00 103 H 21 98 10/29/20 02:39 105 H 20 101/75 98 10/29/20 02:30 99 H 20 98 10/29/20 02:09 103 H 20 99/68 L 99 10/29/20 02:00 107 H 25 H 98 10/29/20 01:40 96 H 20 99/78 L 99 10/29/20 01:30 98 H 19 98 10/29/20 01:09 94 H 21 118/64 99 10/29/20 01:00 96 H 21 99 10/29/20 00:39 107 H 20 105/65 98 10/29/20 00:30 105 H 20 98 10/29/20 00:09 36.5 C 107 H 25 H 106/63 98 10/29/20 00:00 99 H 23 98 10/28/20 23:39 106 H 22 106/60 98 10/28/20 23:30 98 H 20 98 10/28/20 23:09 108 H 24 101/58 L 97 10/28/20 23:00 100 H 21 100 10/28/20 22:39 94 H 26 H 101/64 73 L 10/28/20 22:30 106 H 22 98 10/28/20 22:08 94 H 23 119/65 98 10/28/20 22:00 104 H 28 H 98 10/28/20 21:38 100 H 22 100/67 98 10/28/20 21:30 96 H 21 97 10/28/20 21:09 101 H 22 107/59 L 96 10/28/20 21:00 98 H 18 95 10/28/20 20:38 96 H 22 104/65 98 10/28/20 20:30 103 H 20 98 10/28/20 20:08 104 H 24 103/68 98 10/28/20 20:07 36.7 C 10/28/20 20:00 92 H 22 98 10/28/20 19:38 103 H 23 91/64 L 98 10/28/20 19:30 103 H 20 97 Laboratory Results 10/29/20 10/29/20 10/29/20 Range/Units 15:32 07:08 06:03 WBC (4.8-10.8) K/uL RBC (4.2-5.4) M/uL Hgb (12.0-16.0) g/dL Hct (37-47) % MCV (80-100) fL MCH (25-34) pg MCHC (32-36) g/dL RDW Std Deviation (36.4-46.3) fL RDW Coeff of Andrae (11.5-14.5) % Plt Count (130-400) K/uL MPV (7.4-10.4) fL Immature Gran % (Auto) % Neut % (Auto) % Lymph % (Auto) % Chambers % (Auto) % Eos % (Auto) % Baso % (Auto) % Neut # (Auto) (1.4-6.5) K/uL Lymph # (Auto) (1.2-3.4) K/uL Chambers # (Auto) (0.11-0.59) K/uL Eos # (Auto) (0-0.5) K/uL Baso # (Auto) (0-0.2) K/uL Immature Gran # (Auto) (0.00-0.02) K/uL APTT 79.4 H* 125.7 H* > 139.0 H* (21.0-31.0) Seconds PTT Ratio 3.0 4.8 > 5.3 VBG pH (7.36-7.41) VBG pCO2 (38-50) mmHg VBG pO2 mmHg VBG HCO3 mmol/L VBG O2 Saturation % VBG Base Excess mEq/L Barometric Pressure mm/Hg Sodium (136-145) mmol/L Potassium (3.5-5.1) mmol/L Chloride (98-107) mmol/L Carbon Dioxide (21-32) mmol/L Anion Gap (3-11) BUN (7-18) mg/dl Creatinine (0.6-1.2) mg/dl Est Cr Clr Drug Dosing ml/min Est GFR ( Amer) Est GFR (Non-Af Amer) BUN/Creatinine Ratio (10-20) Glucose (70-99) mg/dl Calcium (8.5-10.1) mg/dl Phosphorus (2.5-4.9) mg/dl Magnesium (1.8-2.4) mg/dl 10/29/20 10/29/20 10/29/20 Range/Units 04:30 04:30 04:30 WBC 7.57 (4.8-10.8) K/uL RBC 3.52 L (4.2-5.4) M/uL Hgb 8.5 L (12.0-16.0) g/dL Hct 30.3 L (37-47) % MCV 86.1 (80-100) fL MCH 24.1 L (25-34) pg MCHC 28.1 L (32-36) g/dL RDW Std Deviation 55.0 H (36.4-46.3) fL RDW Coeff of Andrae 17.6 H (11.5-14.5) % Plt Count 149 (130-400) K/uL MPV 8.8 (7.4-10.4) fL Immature Gran % (Auto) 0.3 % Neut % (Auto) 89.3 % Lymph % (Auto) 5.8 % Chambers % (Auto) 4.6 % Eos % (Auto) 0.0 % Baso % (Auto) 0.0 % Neut # (Auto) 6.76 H (1.4-6.5) K/uL Lymph # (Auto) 0.44 L (1.2-3.4) K/uL Chambers # (Auto) 0.35 (0.11-0.59) K/uL Eos # (Auto) 0.00 (0-0.5) K/uL Baso # (Auto) 0.00 (0-0.2) K/uL Immature Gran # (Auto) 0.02 (0.00-0.02) K/uL APTT (21.0-31.0) Seconds PTT Ratio VBG pH 7.23 L (7.36-7.41) VBG pCO2 75 H (38-50) mmHg VBG pO2 52 mmHg VBG HCO3 31 mmol/L VBG O2 Saturation 83.8 % VBG Base Excess 2.2 mEq/L Barometric Pressure 739.2 mm/Hg Sodium 141 (136-145) mmol/L Potassium 5.3 H (3.5-5.1) mmol/L Chloride 110 H (98-107) mmol/L Carbon Dioxide 31 (21-32) mmol/L Anion Gap 0 L (3-11) BUN 35 H (7-18) mg/dl Creatinine 0.88 (0.6-1.2) mg/dl Est Cr Clr Drug Dosing 67.6 ml/min Est GFR ( Amer) 75.0 Est GFR (Non-Af Amer) 64.7 BUN/Creatinine Ratio 40.0 H (10-20) Glucose 119 H (70-99) mg/dl Calcium 9.4 (8.5-10.1) mg/dl Phosphorus 2.9 (2.5-4.9) mg/dl Magnesium 2.0 (1.8-2.4) mg/dl 10/28/20 Range/Units 17:53 WBC (4.8-10.8) K/uL RBC (4.2-5.4) M/uL Hgb (12.0-16.0) g/dL Hct (37-47) % MCV (80-100) fL MCH (25-34) pg MCHC (32-36) g/dL RDW Std Deviation (36.4-46.3) fL RDW Coeff of Andrae (11.5-14.5) % Plt Count (130-400) K/uL MPV (7.4-10.4) fL Immature Gran % (Auto) % Neut % (Auto) % Lymph % (Auto) % Chambers % (Auto) % Eos % (Auto) % Baso % (Auto) % Neut # (Auto) (1.4-6.5) K/uL Lymph # (Auto) (1.2-3.4) K/uL Chambers # (Auto) (0.11-0.59) K/uL Eos # (Auto) (0-0.5) K/uL Baso # (Auto) (0-0.2) K/uL Immature Gran # (Auto) (0.00-0.02) K/uL APTT 58.9 H* (21.0-31.0) Seconds PTT Ratio 2.2 VBG pH (7.36-7.41) VBG pCO2 (38-50) mmHg VBG pO2 mmHg VBG HCO3 mmol/L VBG O2 Saturation % VBG Base Excess mEq/L Barometric Pressure mm/Hg Sodium (136-145) mmol/L Potassium (3.5-5.1) mmol/L Chloride (98-107) mmol/L Carbon Dioxide (21-32) mmol/L Anion Gap (3-11) BUN (7-18) mg/dl Creatinine (0.6-1.2) mg/dl Est Cr Clr Drug Dosing ml/min Est GFR ( Amer) Est GFR (Non-Af Amer) BUN/Creatinine Ratio (10-20) Glucose (70-99) mg/dl Calcium (8.5-10.1) mg/dl Phosphorus (2.5-4.9) mg/dl Magnesium (1.8-2.4) mg/dl Medications Administered Current Inpatient Medications Acetaminophen (Acetaminophen 325 Mg Tab) 650 mg PO Q4H PRN PRN Reason: Pain or Fever Stop: 11/24/20 16:20 Albuterol (Albuterol Hfa 8 Gm Inhaler) 1 puffs INH QID PRN PRN Reason: shortness of breath or wheezin Stop: 11/24/20 16:20 Atorvastatin Calcium (Atorvastatin 40 Mg Tab) 40 mg PO DAILY [facility] Stop: 11/25/20 08:59 Last Admin: 10/29/20 08:18 Dose: 40 mg Documented by: Bisacodyl (Bisacodyl 10 Mg Supp) 10 mg OK DAILY PRN PRN Reason: Constipation Stop: 11/25/20 00:19 Fludrocortisone Acetate (Fludrocortisone Acetate 0.1 Mg Tab) 0.1 mg PO QAM [facility] Stop: 11/25/20 08:59 Last Admin: 10/29/20 08:18 Dose: 0.1 mg Documented by: Hydrocortisone (Hydrocortisone 10 Mg Tab) 50 mg PO BID [facility] Stop: 11/28/20 20:59 Phenylephrine HCl 40 mg/ (Dextrose) 504 mls @ 0 mls/hr IV .Q0M [facility]; Protocol Stop: 11/25/20 15:59 Last Titration: 10/29/20 12:50 Dose: Infused Documented by: Heparin Sodium/Dextrose (Heparin Sodium/Dextrose) 25,000 units in 500 mls @ 19 mls/hr IV .Q24H [facility]; Protocol Stop: 11/27/20 10:44 Last Titration: 10/29/20 16:09 Dose: 950 units/hr, 19 mls/hr Documented by: Magnesium Hydroxide (Magnesium Hydroxide Susp 30 Ml Udc) 30 ml PO Q6H PRN PRN Reason: Constipation Stop: 11/25/20 00:19 Ondansetron HCl (Ondansetron Inj 2 Mg/Ml 2 Ml Vial) 4 mg IV Q6H PRN PRN Reason: Nausea Stop: 11/24/20 16:20 Polyethylene Glycol (Polyethylene (Miralax) 17 Gm Pack) 17 gm PO DAILY PRN PRN Reason: Constipation Stop: 11/25/20 00:19 Sertraline HCl (Sertraline Hcl 50 Mg Tablet) 25 mg PO DAILY [facility] Stop: 11/25/20 08:59 Last Admin: 10/27/20 09:20 Dose: 25 mg Documented by: Vitamin D (Cholecalciferol 1,000 Units 25 Mcg Tab) 2,000 units PO DAILY [facility] Stop: 11/25/20 08:59 Last Admin: 10/29/20 08:19 Dose: 2,000 units Documented by: Resident Activity Tracking Resident Involvement: Resident Care Provided Care Provided: Adult Hospital Medicine
[2020-10-29 07:41] LABS: Partial Thromboplastin Ratio 4.8
[2020-10-29 07:45] LABS: Partial Thromboplastin Time 125.7 Seconds (21.0-31.0)
[2020-10-29] MEDS: FLUDROCORTISONE ACETATE 0.1 MG TAB PO SCH (08:18)
[2020-10-29] MEDS: ATORVASTATIN 40 MG TAB PO SCH (08:18)
[2020-10-29] MEDS: CHOLECALCIFEROL 1,000 UNITS 25 MCG TAB PO SCH (08:19)
--- NOTE | 2020-10-29 11:56 | Critical Care Progress Note ---
Date of Service October 29, 2020 Assessment & Plan (1) Admitted to intensive care unit: (2) Atrial fibrillation with rapid ventricular response: (3) Closed fracture of left proximal humerus: (4) Hypercapnic respiratory failure: Reason Critically Ill: 75-year-old female with profound hypotension in the setting of rate controlled A. fib without improvement in blood pressure despite aggressive crystalloid boluses. Concern for LEFT lower lobe pneumonia with possible progression to severe sepsis. Patient to require vasoactive medications for support. 24-hour events: Fairly stable overnight. Continues to require BiPAP as needed and overnight. Her blood gas this morning was slightly improved. Recommendations: NEURO - CAM ICU: NEGATIVE Encephalopathy: Improved this morning. Continue to follow clinically. CARDIAC/VASCULAR - Acute hypotension:Resolved. off pressors. Wean hydrocortisone as tolerated. A. fib with RVR: She is now rate controlled. AV carlitos blocking agents as needed. Appears that the shoulder will be undergoing nonoperative management so will proceed with initiation of heparin infusion and transition to oral anticoagulation once stable. RESPIRATORY - COPD: PFTs not available. The patient has hypercarbic respiratory failure of unclear etiology. Her sniff and forced vital capacity were slightly low and this may argue for neuromuscular weakness. Diaphragmatic paralysis would be on the differential as well although that entity is not well supported by her chest radiograph. She does not appear overtly obstructed. Continue BiPAP nightly. She does have underlying evidence of neuromuscular disease with a low negative inspiratory force and a rising PCO2 which should qualify her for nightly BiPAP leaving the hospital. Outpatient sleep study recommended. Her CO2 is gradually climbing so hopefully with continued nocturnal BiPAP we may see some improvement. She does not have evidence of central apnea or other lack of respiratory drive, and states that her tidal volumes are somewhat low which may be exacerbated by her obesity. However there appears to be an acute component to this of unclear etiology. Diaphragmatic EMG is not available here. CPK and ESR were normal so seems less likely to have dermatomyositis or polymyositis. Myasthenia labs pending however this also appears less likely. If the patient stabilizes, may consider repeating assessment of respiratory muscle strength although her cognitive function does somewhat complicate these measurements. Could perform sniff test although I think this would be complicated by the patient's underlying neurocognitive status. Will defer additional testing at this point time although outpatient PFTs, overnight sleep study, sniff test, and reassessment of neuromuscular strength may be appropriate if the patient can comply. GI/NUTRITION - Advancing diet as tolerated RENAL/LYTES - Acute kidney injury resolved. Hold additional IVF. - discontinue patten ENDO - No h/o DM or Thyroid Dz BSGs per unit protocol. Weaning hydrocortisone and Florinef for relative adrenal insufficiency. HEME - Stable H&H Starting heparin. transition to oral anticoagulation if felt to be reasonable when stable ID - Off antibiotics currently. Continue to follow clinically. LINES/IV ACCESS - PIVs x1 PT, OT and OOB as tolerated. Will need outpatient ortho follow up with shoulder films in 1-2 weeks. Okay to transfer to floor with hospitalist. We will continue to follow for pulmonary issues. (2) Atrial fibrillation with rapid ventricular response: (3) Closed fracture of left proximal humerus: (4) Left lower lobe pneumonia: (5) CHI (closed head injury): (6) Leukocytosis: (7) Acute renal failure: (8) Encephalopathy: (9) COPD, mild: (10) Former smoker: (11) Cognitive impairment: (12) Hyperlipidemia: (13) Hypertension: (14) Raynauds phenomenon: (15) Scleroderma: Admission and Anticipated Discharge Date Admission Date: October 25, 2020 Subjective Patient seen and examined this morning. She is awake and alert. She again appears pleasantly demented and giggles whenever she is asked questions. She tolerated BiPAP last night. Review of Systems Review of Systems: Unobtainable due to cognitive status Physical Exam Physical Exam: VITAL SIGNS - Vital signs and nursing notes were reviewed. GENERAL - 75-year-old female appearing her stated age who is in no acute distress. Communicates well with provider and answers questions appropriately. SKIN - Without rashes. HEAD - NC/AT. EYES - PERRL with EOMI bilaterally. Sclera anicteric. Palpebral conjunctiva pink and moist with no injection noted. EARS - No deformities of external structures noted on gross examination bilaterally. NOSE - Midline and without cyanosis. No epistaxis or purulent drainage noted. MOUTH/OROPHARYNX - Without perioral cyanosis. Buccal mucosa pink and moist and without leukoplakia. Tongue midline with equal elevation of palate bilaterally. NECK - Neck with FROM. Supple to palpation. No lymphadenopathy noted. No nuchal rigidity. LUNGS - Chest wall symmetric without accessory muscle use, intercostals retractions, or central cyanosis. Diminished breath sounds throughout. No adventitious breath sounds appreciated. CARDIAC - RRR with S1/S2. No murmur, rubs, or gallops appreciated. ABDOMEN - Abdominal contour obese without pulsations or visible masses. BS normoactive all four quadrants. No tenderness, palpable masses, hepatosplenomegaly, or ascites noted. EXTREMITIES - No clubbing or peripheral cyanosis. No pretibial edema present. Diminished radial and dorsalis pedis pulses bilaterally. Tenderness to palpation to the LEFT-sided shoulder girdle. NEUROLOGIC - Cranial nerves II through XII grossly intact. Sensory intact to light touch throughout. PSYCH -patient awake and alert. She initially thinks that she is at home, but then corrects her self and states that she is in the hospital. She initially felt the year was 2022, but admits that she is not completely certain. She is able to provide events from her fall earlier in the day. Additionally, she is able to describe her home situation where she receives at home care with a account technician by the name of "Laila". She also reports that she has a neighbor that checks on her regularly as well. Results & Data Results & Data ([facility]) Vital Signs (Past 12 Hours) Vital Signs Temp Pulse Resp BP Pulse Ox 10/29/20 11:09 121 H 21 112/66 99 10/29/20 11:00 111 H 21 100 10/29/20 10:39 110 H 21 106/75 89 L 10/29/20 10:10 123 H 25 H 116/74 100 10/29/20 10:00 112 H 26 H 98 10/29/20 09:39 122 H 21 103/61 100 10/29/20 09:09 112 H 20 103/52 L 10/29/20 09:00 105 H 20 10/29/20 08:39 108 H 21 116/84 10/29/20 08:09 110 H 21 109/73 10/29/20 08:00 36.8 C 112 H 22 10/29/20 07:39 109 H 22 119/71 10/29/20 07:09 98 H 20 133/89 10/29/20 07:00 97 H 20 10/29/20 05:09 92 H 21 112/80 99 10/29/20 05:00 96 H 19 98 10/29/20 04:40 100 H 21 99 10/29/20 04:39 102 H 20 109/66 99 10/29/20 04:30 98 H 23 99 10/29/20 04:09 100 H 21 104/64 98 10/29/20 04:00 36.7 C 96 H 20 99 10/29/20 03:39 98 H 22 105/69 98 10/29/20 03:30 100 H 19 97 10/29/20 03:09 92 H 25 H 114/67 99 10/29/20 03:00 103 H 21 98 10/29/20 02:39 105 H 20 101/75 98 10/29/20 02:30 99 H 20 98 10/29/20 02:09 103 H 20 99/68 L 99 10/29/20 02:00 107 H 25 H 98 10/29/20 01:40 96 H 20 99/78 L 99 10/29/20 01:30 98 H 19 98 10/29/20 01:09 94 H 21 118/64 99 10/29/20 01:00 96 H 21 99 10/29/20 00:39 107 H 20 105/65 98 10/29/20 00:30 105 H 20 98 10/29/20 00:09 36.5 C 107 H 25 H 106/63 98 10/29/20 00:00 99 H 23 98 Laboratory Results 10/29/20 04:30 10/29/20 04:30 10/27/20 10/29/20 11:38 04:30 VBG pH 7.19 L 7.23 L VBG pCO2 74 H 75 H VBG pO2 55 52 VBG HCO3 28 31 VBG O2 Saturation 86.2 83.8 VBG Base Excess -1.4 2.2 Coding Level of Care Code 16417 Subseq Hosp Care Lvl 3 Diagnoses Admitted to intensive care unit Z78.9 Atrial fibrillation with rapid ventricular response I48.91 Closed fracture of left proximal humerus S42.202A Hypercapnic respiratory failure J96.92
[2020-10-29 16:07] LABS: Partial Thromboplastin Time 79.4 Seconds (21.0-31.0)
[2020-10-29] MEDS: PHENYLEPHRINE HCL 40 MG in DEXTROSE 5% 500 ML IV SCH ×2 (19:59→20:00)
[2020-10-29 22:18] LABS: Partial Thromboplastin Time 78.3 Seconds (21.0-31.0)
[2020-10-30 05:16] LABS: Eosinophils # (auto) 0.01 K/uL (0-0.5); Eosinophils % (auto) 0.1 %; Hematocrit (blood only) 30.3 % (37-47); Hemoglobin 8.4 g/dL (12.0-16.0); Immature Granulocytes # (auto) 0.03 K/uL (0.00-0.02); Immature Granulocytes % (auto) 0.4 %; Lymphocytes # (auto) 0.38 K/uL (1.2-3.4); Lymphocytes % (auto) 5.4 %; Mean Corpuscular Hgb Conc 27.7 g/dL (32-36); Mean Corpuscular Volume 86.6 fL (80-100); Mean Platelet Volume 9.6 fL (7.4-10.4); Monocytes # (auto) 0.57 K/uL (0.11-0.59); Neutrophils % (auto) 86.1 %; Platelet Count 158 K/uL (130-400); RDW Coefficient of Variation 17.5 % (11.5-14.5); RDW Standard Deviation 55.2 fL (36.4-46.3); White Blood Count 7.09 K/uL (4.8-10.8)
[2020-10-30 05:38] LABS: BUN Creatinine Ratio 43.1 (10-20); Calcium 9.4 mg/dl (8.5-10.1); Creatinine Clr Calc Pharmacy 76.8 ml/min; Est GFR (African American) 88.2; Est GFR (Non-African American) 76.1; Phosphorus 2.4 mg/dl (2.5-4.9); Potassium 5.2 mmol/L (3.5-5.1)
[2020-10-30 05:47] LABS: Partial Thromboplastin Ratio 2.1
[2020-10-30 05:49] LABS: Partial Thromboplastin Time 55.2 Seconds (21.0-31.0)
[2020-10-30] MEDS: ACETAMINOPHEN 325 MG TAB PO PRN (07:44)
[2020-10-30] MEDS: CHOLECALCIFEROL 1,000 UNITS 25 MCG TAB PO SCH (08:33)
[2020-10-30] MEDS: FLUDROCORTISONE ACETATE 0.1 MG TAB PO SCH (08:33)
[2020-10-30] MEDS: ATORVASTATIN 40 MG TAB PO SCH (08:33)
[2020-10-30] MEDS: HYDROCORTISONE 10 MG TAB PO SCH ×2 (08:34→21:11)
[2020-10-30] MEDS: HEPARIN SODIUM/DEXTROSE 25,000 UNITS/500 ML BAG IV SCH (08:51)
[2020-10-30] MEDS: RIVAROXABAN 15 MG TAB PO SCH (09:25)
--- NOTE | 2020-10-30 09:33 | Pulmonology Progress Note ---
Date of Service October 30, 2020 Assessment & Plan (1) Hypercapnic respiratory failure: (2) Pneumonia: (3) COPD, mild: (4) Former smoker: Impression: 75-year-old female with profound hypotension in the setting of rate controlled A. fib without improvement in blood pressure despite aggre ssive crystalloid boluses. Concern for LEFT lower lobe pneumonia with possible progression to severe sepsis. Patient to require vasoactive medications for support. She also had severe hypercapnic respiratory failure of unclear etiology proved and she was transferred out of the intensive care unit 10/29 to the floor. She continues to tolerate BiPAP at night. Recommendations: 1. Hypercapnic respiratory failure: PFTs not available. The patient has hypercarbic respiratory failure of unclear etiology. Her sniff and forced vital capacity were slightly low and this may argue for neuromuscular weakness. Diaphragmatic paralysis would be on the differential as well although that entity is not well supported by her chest radiograph. She does not appear overtly obstructed from an airflow standpoint. Continue BiPAP nightly. She does have underlying evidence of neuromuscular disease with a low negative inspiratory force and a rising PCO2 which should qualify her for nightly BiPAP leaving the hospital. Outpatient sleep study recommended. Her serum bicarb is gradually climbing so hopefully with continued nocturnal BiPAP we may see some improvement in long-term compensation. She does not have evidence of central apnea or other lack of respiratory drive, and states that her tidal volumes are somewhat low which may be exacerbated by her obesity. However there appears to be an acute component to this of unclear etiology. Diaphragmatic EMG is not available here. CPK and ESR were normal so seems less likely to have dermatomyositis or polymyositis. Myasthenia labs pending however this also appears less likely. Could perform sniff test although I think this would be complicated by the patient's underlying neurocognitive status. Will defer additional testing at this point time although outpatient PFTs, overnight sleep study, sniff test, and reassessment of neuromuscular strength may be appropriate if the patient can comply. 2. Query pneumonia: Infiltrates resolved. Off antibiotics at this point time. 3. Reported history of COPD. Not bronchospastic. No indication for steroids or inhalers currently. Outpatient PFTs as noted above if the patient possesses cognitive faculties to be able to perform the test. Management of the patient's other medical issues is deferred to the hospitalist service We will follow peripherally. Would be happy to see her back in pulmonary clinic when she is dismissed from the hospital if needed. Admission and Anticipated Discharge Date Admission Date: October 25, 2020 Subjective Patient seen and examined. She is awake and alert and conversant. She reports no complaints. She denies any shortness of breath chest pain cough or sputum production Review of Systems Review of Systems: All systems reviewed & are unremarkable except as noted in HPI & below Physical Exam Constitutional: + obese and + edematous; no acute distress and not ill appearing Neck: trachea midline, no thyromegaly Respiratory: normal respiratory effort, lungs clear to auscultation Cardiovascular: RRR, no murmur, no edema Gastrointestinal (Abdomen): normal bowel sounds, soft, nontender, no hepatosplenomegaly Musculoskeletal: Extremities: extremities normal to inspection Skin: no rashes, warm and dry Neurologic: Nonfocal exam Lymphatic: no cervical lymphadenopathy Results & Data Results & Data ([facility]) Vital Signs (Past 12 Hours) Vital Signs Temp Pulse Pulse Resp BP BP Pulse Ox 10/30/20 08:00 103 H 10/30/20 07:56 36.8 C 103 H 21 111/72 98 10/30/20 03:51 101 H 22 100 10/30/20 03:26 37 C 10/30/20 03:14 102 H 21 115/73 100 10/30/20 03:00 99 H 19 98 10/30/20 02:44 100 H 20 116/67 98 10/30/20 02:30 100 H 23 92 10/30/20 02:14 88 20 116/69 97 10/30/20 01:44 104 H 38 H 116/80 94 10/30/20 01:14 103 H 20 118/69 94 10/30/20 00:44 98 H 22 119/78 98 10/30/20 00:14 36.9 C 104 H 23 116/80 97 10/30/20 00:00 98 H 21 99 10/29/20 23:44 102 H 23 114/69 98 10/29/20 23:14 110 H 25 H 103/69 98 10/29/20 22:44 109 H 24 119/74 96 10/29/20 22:36 119 H 24 111/76 92 10/29/20 22:14 118 H 22 111/76 94 10/29/20 22:00 114 H 30 H 97 02/21 21:44 123 H 20 118/75 97 Laboratory Results 10/30/20 04:45 10/30/20 04:45 Diagnostic Findings No new imaging PG Care Time/CCT Total # of Minutes Spent Total Time Spent with Patient: Total time spent is greater than 50% in coordination of care (as documented) at patient's floor/unit and/or counseling patient: Coding Level of Care Code 08487 Subseq Hosp Care Lvl 2 Diagnoses Hypercapnic respiratory failure J96.92 Pneumonia J18.9 COPD, mild J44.9 Former smoker Z87.891
[2020-10-30] MEDS ORDERED: HYDROCODONE/ACETAMOPHEN 5/325MG TAB PO PRN (10:06)
--- NOTE | 2020-10-30 15:33 | Hospitalist Progress Note ---
Date of Service October 30, 2020 Assessment & Plan (1) Atrial fibrillation with rapid ventricular response: 75-year-old female with past medical history hypertension presenting with significant hypotension in the setting of A. fib requiring pressor support on IVF boluses were not working. Septic shock in setting of Sepsis POA treated with 5+Liters of NSS bolus and Karlo-synephrine gtt. (Resolved) -Patient presented with significant tachycardia resolving status post aggressive IV fluid, beta-denae and digoxin however continued to remain hypotensive necessitating transfer to the ICU where an IJ was placed for administration of pressors -Imaging was suspicious for left lower lobe infiltrate which taken with her clinical history could certainly result in this presentation -The underlying etiology of her shock is not clear. Regardless she continues to improve. Monitor clinically -No longer requiring pressors, weaning hydrocortisone/fludrocortisone as tolerated -Echo: Compared with 10/27/2015 moderate pulmonary hypertension now apparent otherwise no significant changes, RV systolic pressure elevated at 40 to 50 mmHg. EF greater than 70%, LV hyperdynamic, LV hypertrophy mild MR -Downgraded from ICU to PCU -Antibiotics discontinued. A fib with RVR -Heart rate in the low 100s. Continue metoprolol for try 12.5 mg twice daily, titrate as necessary. ?pain contributing - heparin discontinued and transitioned to home PO Xarelto 15 mg daily COPD/hypercarbic respiratory failure of unclear etiology -Former smoker, longstanding history of, likely complicating her current presentation. Likely exacerbated by obesity hypoventilation as well. Likely will require continue respiratory support as she continues to improve. PFTs not available for review. Recommend outpatient sleep study. Need to assess neuromuscular strength when able (?evidence of neuromuscular disease) -Continue nightly BiPAP for hypercapnia, case management arranging for nocturnal noninvasive positive pressure ventilation -Albuterol 1 puff 4 times daily -Off antibiotics currently -Appreciate pulmonology consult JOHNATHAN (Resolved) Likely secondary to hypotension, expect to resolve as pressures improve. Avoid nephrotoxins HTN Lisinopril resumed and spironolactone held Closed fracture of the left proximal humerus Orthopedics was consulted recommending nonoperative/medical management -Sling in place. Pain management with p.o. Tylenol and p.o. [place] -will need repeat XRs in office in two weeks FEN/GI: HH Diet. Repleting electrolytes as needed. DVT PPX: Xarelto CODE STATUS: DNR/DNI Dispo: PCU. PT OT recommend inpatient rehab stay. Per CM, [facility] has a bed, however due to patient's commercial insurance would not be able to be discharged until Sunday. Patient is medically stable at present. Admission and Anticipated Discharge Date Admission Date: October 25, 2020 Supervising Physician Co-Signing Physician Notes Resident Physician Supervision Note: I independently interviewed and examined the patient and verified the mckeon history and physical, reviewed labs and image studies, discussed the case with the resident Dr. Schaeffer and agree with the findings and care plan. Subjective Patient found in bed this a.m. No acute overnight events. Patient states that she feels well, no concerns or complaints. No shortness of breath or chest pain. No cough. Review of Systems Review of Systems: All systems reviewed & are unremarkable except as noted in HPI & below Physical Exam Constitutional: + obese Eyes: PERRL, conjunctivae normal, anicteric sclerae ENMT: external ear and nose normal, oropharynx normal Respiratory: normal respiratory effort, lungs clear to auscultation Cardiovascular: RRR, no murmur, no edema Gastrointestinal (Abdomen): normal bowel sounds, soft, nontender, no hepatosplenomegaly Skin: no rashes, warm and dry Psychiatric: A+Ox3, euthymic affect Lymphatic: +1 LE edema Results & Data Results & Data ([facility]) Vital Signs (Past 12 Hours) Vital Signs Temp Pulse Pulse Resp BP BP Pulse Ox 10/30/20 11:40 36.2 C L 117 H 19 107/70 100 10/30/20 08:00 103 H 10/30/20 07:56 36.8 C 103 H 21 111/72 98 10/30/20 03:51 101 H 22 100 10/30/20 03:26 37 C 10/30/20 03:14 102 H 21 115/73 100 Laboratory Results Laboratory Results - last 24 hr 10/29/20 10/29/20 10/30/20 15:32 21:47 04:45 WBC 7.09 RBC 3.50 L Hgb 8.4 L Hct 30.3 L MCV 86.6 MCH 24.0 L MCHC 27.7 L RDW Std Deviation 55.2 H RDW Coeff of Andrae 17.5 H Plt Count 158 MPV 9.6 Immature Gran % (Auto) 0.4 Neut % (Auto) 86.1 Lymph % (Auto) 5.4 [place] % (Auto) 8.0 Eos % (Auto) 0.1 Baso % (Auto) 0.0 Neut # (Auto) 6.10 Lymph # (Auto) 0.38 L [place] # (Auto) 0.57 Eos # (Auto) 0.01 Baso # (Auto) 0.00 Immature Gran # (Auto) 0.03 H APTT 79.4 H* 78.3 H* PTT Ratio 3.0 3.0 Sodium Potassium Chloride Carbon Dioxide Anion Gap BUN Creatinine Est Cr Clr Drug Dosing Est GFR ( Amer) Est GFR (Non-Af Amer) BUN/Creatinine Ratio Glucose Calcium Phosphorus Magnesium 10/30/20 10/30/20 04:45 04:45 WBC RBC Hgb Hct MCV MCH MCHC RDW Std Deviation RDW Coeff of Andrae Plt Count MPV Immature Gran % (Auto) Neut % (Auto) Lymph % (Auto) [place] % (Auto) Eos % (Auto) Baso % (Auto) Neut # (Auto) Lymph # (Auto) [place] # (Auto) Eos # (Auto) Baso # (Auto) Immature Gran # (Auto) APTT 55.2 H* PTT Ratio 2.1 Sodium 144 Potassium 5.2 H Chloride 111 H Carbon Dioxide 34 H Anion Gap -1.0 L BUN 33 H Creatinine 0.77 Est Cr Clr Drug Dosing 76.8 Est GFR ( Amer) 88.2 Est GFR (Non-Af Amer) 76.1 BUN/Creatinine Ratio 43.1 H Glucose 118 H Calcium 9.4 Phosphorus 2.4 L Magnesium 2.0 Medications Administered Current Inpatient Medications Acetaminophen (Acetaminophen 325 Mg Tab) 650 mg PO Q4H PRN PRN Reason: Pain or Fever Stop: 11/24/20 16:20 Last Admin: 10/30/20 07:44 Dose: 650 mg Documented by: Hydrocodone Bitart/Acetaminophen (Hydrocodone/Acetamophen 5/325mg Tab) 1 tab PO Q4H PRN PRN Reason: Pain Stop: 11/13/20 10:05 Albuterol (Albuterol Hfa 8 Gm Inhaler) 1 puffs INH QID PRN PRN Reason: shortness of breath or wheezin Stop: 11/24/20 16:20 Atorvastatin Calcium (Atorvastatin 40 Mg Tab) 40 mg PO DAILY [facility] Stop: 11/25/20 08:59 Last Admin: 10/30/20 08:33 Dose: 40 mg Documented by: Bisacodyl (Bisacodyl 10 Mg Supp) 10 mg [place] DAILY PRN PRN Reason: Constipation Stop: 11/25/20 00:19 Fludrocortisone Acetate (Fludrocortisone Acetate 0.1 Mg Tab) 0.1 mg PO QAM [facility] Stop: 11/25/20 08:59 Last Admin: 10/30/20 08:33 Dose: 0.1 mg Documented by: Hydrocortisone (Hydrocortisone 10 Mg Tab) 50 mg PO BID [facility] Stop: 11/28/20 20:59 Last Admin: 10/30/20 08:34 Dose: 50 mg Documented by: Phenylephrine HCl 40 mg/ (Dextrose) 504 mls @ 0 mls/hr IV .Q0M [facility]; Protocol Stop: 11/25/20 15:59 Last Admin: 10/29/20 20:00 Dose: Not Given Documented by: Magnesium Hydroxide (Magnesium Hydroxide Susp 30 Ml Udc) 30 ml PO Q6H PRN PRN Reason: Constipation Stop: 11/25/20 00:19 Ondansetron HCl (Ondansetron Inj 2 Mg/Ml 2 Ml Vial) 4 mg IV Q6H PRN PRN Reason: Nausea Stop: 11/24/20 16:20 Polyethylene Glycol (Polyethylene (Miralax) 17 Gm Pack) 17 gm PO DAILY PRN PRN Reason: Constipation Stop: 11/25/20 00:19 Rivaroxaban (Rivaroxaban 15 Mg Tab) 15 mg PO DAILY [facility] Stop: 11/29/20 08:59 Last Admin: 10/30/20 09:25 Dose: 15 mg Documented by: Sertraline HCl (Sertraline Hcl 50 Mg Tablet) 25 mg PO DAILY [facility] Stop: 11/25/20 08:59 Last Admin: 10/27/20 09:20 Dose: 25 mg Documented by: Vitamin D (Cholecalciferol 1,000 Units 25 Mcg Tab) 2,000 units PO DAILY [facility] Stop: 11/25/20 08:59 Last Admin: 10/30/20 08:33 Dose: 2,000 units Documented by: Resident Activity Tracking Resident Involvement: Resident Care Provided Care Provided: Adult [facility] Medicine
[2020-10-31 05:41] LABS: Partial Thromboplastin Ratio 0.8; Partial Thromboplastin Time 21.2 Seconds (21.0-31.0)
[2020-10-31 05:47] LABS: Hematocrit (blood only) 31.8 % (37-47); Hemoglobin 8.9 g/dL (12.0-16.0); Immature Granulocytes # (auto) 0.04 K/uL (0.00-0.02); Immature Granulocytes % (auto) 0.6 %; Lymphocytes # (auto) 0.51 K/uL (1.2-3.4); Mean Corpuscular Hemoglobin 24.3 pg (25-34); Mean Corpuscular Volume 86.6 fL (80-100); Mean Platelet Volume 9.2 fL (7.4-10.4); Monocytes # (auto) 0.51 K/uL (0.11-0.59); Neutrophils # (auto) 6.19 K/uL (1.4-6.5); Neutrophils % (auto) 85.4 %; Platelet Count 164 K/uL (130-400); RDW Coefficient of Variation 17.3 % (11.5-14.5); RDW Standard Deviation 54.4 fL (36.4-46.3); Red Blood Count 3.67 M/uL (4.2-5.4); White Blood Count 7.25 K/uL (4.8-10.8)
[2020-10-31 05:57] LABS: BUN Creatinine Ratio 40.6 (10-20); Calcium 9.7 mg/dl (8.5-10.1); Creatinine Clr Calc Pharmacy 75.5 ml/min; Est GFR (African American) 86.8; Est GFR (Non-African American) 74.9; Phosphorus 2.3 mg/dl (2.5-4.9); Potassium 5.2 mmol/L (3.5-5.1)
[2020-10-31] MEDS ORDERED: SODIUM PHOSPHATE 3 MMOL/1 ML INFUSION IV STA (07:20)
[2020-10-31] MEDS ORDERED: SODIUM PHOSPHATE 21 MMOL in SODIUM CHLORIDE 0.9% 500 ML IV ONE (07:30)
[2020-10-31] MEDS: HYDROCORTISONE 10 MG TAB PO SCH (07:49)
[2020-10-31] MEDS: FLUDROCORTISONE ACETATE 0.1 MG TAB PO SCH (08:19)
[2020-10-31] MEDS: ATORVASTATIN 40 MG TAB PO SCH (08:19)
[2020-10-31] MEDS: RIVAROXABAN 15 MG TAB PO SCH (08:19)
[2020-10-31] MEDS: CHOLECALCIFEROL 1,000 UNITS 25 MCG TAB PO SCH (08:19)
--- NOTE | 2020-10-31 11:00 | Hospitalist Progress Note ---
Date of Service October 31, 2020 Assessment & Plan (1) Atrial fibrillation with rapid ventricular response: 75-year-old female with past medical history hypertension presenting with significant hypotension in the setting of A. fib requiring pressor support on IVF boluses were not working. Septic shock in setting of Sepsis POA treated with 5+Liters of NSS bolus and Karlo-synephrine gtt. (Resolved) -Patient presented with significant tachycardia resolving status post aggressive IV fluid, beta-denae and digoxin however continued to remain hypotensive necessitating transfer to the ICU where an IJ was placed for administration of pressors -Imaging was suspicious for left lower lobe infiltrate which taken with her clinical history could certainly result in this presentation -The underlying etiology of her shock is not clear. -No longer requiring pressors. weaning hydrocortisone. Will need to assess weaning fludrocortisone 0.1mgs -Echo: Compared with 10/27/2015 moderate pulmonary hypertension now apparent otherwise no significant changes, RV systolic pressure elevated at 40 to 50 mmHg. EF greater than 70%, LV hyperdynamic, LV hypertrophy mild MR -Downgraded from ICU to PCU A fib with RVR -Heart rate in the low 100s. resume metoprolol 12.5 mg twice daily . - heparin discontinued and transitioned to home PO Xarelto 15 mg daily COPD/hypercarbic respiratory failure of unclear etiology -Former smoker, concern of OHS. Per pulmonology, pts sniff and forced vital capacity were slightly low and this may argue for neuromuscular weakness. PFTs not available for review. Recommend outpatient sleep study. -Continue nightly BiPAP for hypercapnia -Per CM discussion with [facility], in order for patient to qualify for home BiPAP machine they will need a nocturnal pulse ox study completed on her baseline oxygen level, which for this patient is room air. However, patient is currently requiring 2 L nasal cannula. [facility] to get qualifying test prior to discharging patient home. -Albuterol 1 puff 4 times daily -Off antibiotics currently -Appreciate pulmonology consult . Pt should be seen in pulmonary clinic once outpt moving forward Electrolyte derangement Trend daily BMP, replete electrolytes as indicated. JOHNATHAN (Resolved) Likely secondary to hypotension, expect to resolve as pressures improve. Avoid nephrotoxins HTN Lisinopril and spironolactone resumed Closed fracture of the left proximal humerus Orthopedics was consulted recommending nonoperative/medical management -Sling in place. Pain management with p.o. Tylenol and p.o. [place] -will need repeat XRs in office in two weeks FEN/GI: HH Diet. Repleting electrolytes as needed. DVT PPX: Xarelto CODE STATUS: DNR/DNI Dispo: PCU. PT OT recommend inpatient rehab stay. Per CM, [facility] has a bed, however due to patient's commercial insurance would not be able to be discharged until Sunday. Patient is medically stable at present. Admission and Anticipated Discharge Date Admission Date: October 25, 2020 Supervising Physician Co-Signing Physician Notes Resident Physician Supervision Note: I independently interviewed and examined the patient and verified the mckeon his tory and physical, reviewed labs and image studies, discussed the case with the resident Dr. Schaeffer and agree with the findings and care plan. Subjective Patient found in bed this a.m. No acute overnight events. Patient states that she feels well, no concerns or complaints. No shortness of breath or chest pain. No cough. R hand swelling improved. Review of Systems Review of Systems: All systems reviewed & are unremarkable except as noted in HPI & below Physical Exam Constitutional: + obese Eyes: PERRL, conjunctivae normal, anicteric sclerae ENMT: external ear and nose normal, oropharynx normal Respiratory: normal respiratory effort, lungs clear to auscultation Cardiovascular: Rate/Rhythm: regular rate, regular rhythm and + tachycardic Gastrointestinal (Abdomen): normal bowel sounds, soft, nontender, no hepato splenomegaly Skin: no rashes, warm and dry Psychiatric: A+Ox3, euthymic affect Lymphatic: + lymphedema (R hand, improved) Results & Data Results & Data ([facility]) Vital Signs (Past 12 Hours) Vital Signs Temp Pulse Resp BP Pulse Ox 10/31/20 10:12 115 H 10/31/20 06:36 36.8 C 10/31/20 06:34 115 H 21 126/92 99 10/31/20 06:30 108 H 20 10/31/20 06:00 106 H 18 10/31/20 05:33 108 H 17 108/85 10/31/20 05:31 106 H 20 10/31/20 05:00 111 H 23 95 10/31/20 04:30 101 H 30 H 98 10/31/20 04:00 117 H 23 97 10/31/20 03:39 109 H 22 98 10/31/20 03:30 99 H 20 98 10/31/20 03:00 101 H 20 98 10/31/20 02:30 104 H 20 100 10/31/20 02:00 94 H 20 98 10/31/20 01:51 108 H 10/31/20 01:38 36.8 C 10/31/20 01:30 108 H 20 100 10/31/20 01:00 96 H 16 100 10/31/20 00:30 104 H 20 100 10/31/20 00:00 100 H 21 100 10/30/20 23:30 107 H 21 100 10/30/20 23:00 113 H 19 100 Laboratory Results Laboratory Results - last 24 hr 10/31/20 10/31/20 10/31/20 05:10 05:10 05:10 WBC 7.25 RBC 3.67 L Hgb 8.9 L Hct 31.8 L MCV 86.6 MCH 24.3 L MCHC 28.0 L RDW Std Deviation 54.4 H RDW Coeff of Andrae 17.3 H Plt Count 164 MPV 9.2 Immature Gran % (Auto) 0.6 Neut % (Auto) 85.4 Lymph % (Auto) 7.0 [place] % (Auto) 7.0 Eos % (Auto) 0.0 Baso % (Auto) 0.0 Neut # (Auto) 6.19 Lymph # (Auto) 0.51 L [place] # (Auto) 0.51 Eos # (Auto) 0.00 Baso # (Auto) 0.00 Immature Gran # (Auto) 0.04 H APTT 21.2 PTT Ratio 0.8 Sodium 144 Potassium 5.2 H Chloride 110 H Carbon Dioxide 34 H Anion Gap 0 L BUN 32 H Creatinine 0.78 Est Cr Clr Drug Dosing 75.5 Est GFR ( Amer) 86.8 Est GFR (Non-Af Amer) 74.9 BUN/Creatinine Ratio 40.6 H Glucose 98 Calcium 9.7 Phosphorus 2.3 L Magnesium 2.0 Medications Administered Current Inpatient Medications Acetaminophen (Acetaminophen 325 Mg Tab) 650 mg PO Q4H PRN PRN Reason: Pain or Fever Stop: 11/24/20 16:20 Last Admin: 10/30/20 07:44 Dose: 650 mg Documented by: Hydrocodone Bitart/Acetaminophen (Hydrocodone/Acetamophen 5/325mg Tab) 1 tab PO Q4H PRN PRN Reason: Pain Stop: 11/13/20 10:05 Albuterol (Albuterol Hfa 8 Gm Inhaler) 1 puffs INH QID PRN PRN Reason: shortness of breath or wheezin Stop: 11/24/20 16:20 Atorvastatin Calcium (Atorvastatin 40 Mg Tab) 40 mg PO DAILY [facility] Stop: 11/25/20 08:59 Last Admin: 10/31/20 08:19 Dose: 40 mg Documented by: Bisacodyl (Bisacodyl 10 Mg Supp) 10 mg [place] DAILY PRN PRN Reason: Constipation Stop: 11/25/20 00:19 Fludrocortisone Acetate (Fludrocortisone Acetate 0.1 Mg Tab) [facility] Stop: 11/25/20 08:59 Last Admin: 10/31/20 08:19 Dose: 0.1 mg Documented by: Hydrocortisone (Hydrocortisone 10 Mg Tab) 50 mg PO QAM [facility] Stop: 12/01/20 08:59 Phenylephrine HCl 40 mg/ (Dextrose) 504 mls @ 0 mls/hr IV .Q0M [facility]; Protocol Stop: 11/25/20 15:59 Last Admin: 10/29/20 20:00 Dose: Not Given Documented by: Sodium Phosphate 21 mmol/ (Sodium Chloride) 507 mls @ 88 mls/hr IV ONE ONE Stop: 10/31/20 13:15 Last Admin: 10/31/20 07:48 Dose: 88 mls/hr Documented by: Lisinopril (Lisinopril 5 Mg Tab) 5 mg PO QAM [facility] Stop: 11/30/20 08:59 Magnesium Hydroxide (Magnesium Hydroxide Susp 30 Ml Udc) 30 ml PO Q6H PRN PRN Reason: Constipation Stop: 11/25/20 00:19 Metoprolol Tartrate (Metoprolol Tartrate 25 Mg Tab) 12.5 mg PO BID [facility] Stop: 11/30/20 08:59 Ondansetron HCl (Ondansetron Inj 2 Mg/Ml 2 Ml Vial) 4 mg IV Q6H PRN PRN Reason: Nausea Stop: 11/24/20 16:20 Polyethylene Glycol (Polyethylene (Miralax) 17 Gm Pack) 17 gm PO DAILY PRN PRN Reason: Constipation Stop: 11/25/20 00:19 Rivaroxaban (Rivaroxaban 15 Mg Tab) 15 mg PO DAILY [facility] Stop: 11/29/20 08:59 Last Admin: 10/31/20 08:19 Dose: 15 mg Documented by: Sertraline HCl (Sertraline Hcl 50 Mg Tablet) 25 mg PO DAILY [facility] Stop: 11/25/20 08:59 Last Admin: 10/27/20 09:20 Dose: 25 mg Documented by: Spironolactone (Spironolactone 25 Mg Tab) 25 mg PO DAILY [facility] Stop: 12/01/20 08:59 Vitamin D (Cholecalciferol 1,000 Units 25 Mcg Tab) 2,000 units PO DAILY [facility] Stop: 11/25/20 08:59 Last Admin: 10/31/20 08:19 Dose: 2,000 units Documented by: Resident Activity Tracking Resident Involvement: Resident Care Provided Care Provided: Adult [facility] Medicine
[2020-10-31] MEDS: METOPROLOL TARTRATE 25 MG TAB PO SCH ×2 (11:01→20:15)
[2020-10-31] MEDS: lisinopril 5 MG TAB PO SCH (11:01)
--- NOTE | 2020-10-31 13:31 | Pulmonology Progress Note ---
Date of Service October 31, 2020 Assessment & Plan (1) Hypercapnic respiratory failure: Impression: 75-year-old female with profound hypotension in the setting of rate controlled A. fib without improvement in blood pressure despite aggressive crystalloid boluses. Concern for LEFT lower lobe pneumonia with possible progression to severe sepsis. Patient to require vasoactive medications for support. She also had severe hypercapnic respiratory failure of unclear etiology proved and she was transferred out of the intensive care unit 10/29 to the floor. She continues to tolerate BiPAP at night. Recommendations: 1. Hypercapnic respiratory failure: PFTs not available. The patient has hypercarbic respiratory failure of unclear etiology. Her sniff and forced vital capacity were slightly low and this may argue for neuromuscular weakness. Diaphragmatic paralysis would be on the d ifferential as well although that entity is not well supported by her chest radiograph. She does not appear overtly obstructed from an airflow standpoint. Continue BiPAP nightly. She does have underlying evidence of neuromuscular disease with a low negative inspiratory force and a rising PCO2 which should qualify her for nightly BiPAP leaving the hospital. Outpatient sleep study recommended. Her serum bicarb is gradually climbing so hopefully with continued nocturnal BiPAP we may see some improvement in long-term compensation. She does not have evidence of central apnea or other lack of respiratory drive, and states that her tidal volumes are somewhat low which may be exacerbated by her obesity. However there appears to be an acute component to this of unclear etiology. Diaphragmatic EMG is not available here. CPK and ESR were normal so seems less likely to have dermatomyositis or polymyositis. Myasthenia labs pending however this also appears less likely. Could perform sniff test although I think this would be complicated by the patient's underlying neurocognitive status. Will defer additional testing at this point time although outpatient PFTs, overnight sleep study, sniff test, and reassessment of neuromuscular strength may be appropriate if the patient can comply. 2. Query pneumonia: Infiltrates resolved. Off antibiotics at this point time. 3. Reported history of COPD. Not bronchospastic. No indication for steroids or inhalers currently. Outpatient PFTs as noted above if the patient possesses cognitive faculties to be able to perform the test. Patient appears to be doing clinically well currently on BiPAP nightly and as needed during the day. She should be prescribed BiPAP to use nightly when dismissed from the hospital. Again would be happy to see her back in the pulmonary clinic at follow-up. We will sign off at this point time. Please call if we can be of additional assistance (2) COPD, mild: Admission and Anticipated Discharge Date Admission Date: October 25, 2020 Subjective Patient seen and examined. She offers no complaints. She states she is breathing well. She used CPAP and BiPAP last night without difficulty. Review of Systems Review of Systems: All systems reviewed & are unremarkable except as noted in HPI & below Physical Exam Constitutional: + obese Eyes: PERRL, conjunctivae normal, anicteric sclerae ENMT: external ear and nose normal, oropharynx normal Respiratory: normal respiratory effort, lungs clear to auscultation Cardiovascular: Rate/Rhythm: regular rate, regular rhythm and + tachycardic Gastrointestinal (Abdomen): normal bowel sounds, soft, nontender, no hepatosplenomegaly Skin: no rashes, warm and dry Psychiatric: A+Ox3, euthymic affect Lymphatic: + lymphedema (R hand, improved) Results & Data Results & Data ([facility]) Vital Signs (Past 12 Hours) Vital Signs Temp Pulse Pulse Resp BP BP Pulse Ox 10/31/20 11:30 36.7 C 116 H 18 119/79 98 10/31/20 10:12 115 H 10/31/20 08:00 36.4 C 123 H 16 116/68 96 10/31/20 06:36 36.8 C 10/31/20 06:34 115 H 21 126/92 99 10/31/20 06:30 108 H 20 10/31/20 06:00 106 H 18 10/31/20 05:33 108 H 17 108/85 10/31/20 05:31 106 H 20 10/31/20 05:00 111 H 23 95 10/31/20 04:30 101 H 30 H 98 10/31/20 04:00 117 H 23 97 10/31/20 03:39 109 H 22 98 10/31/20 03:30 99 H 20 98 10/31/20 03:00 101 H 20 98 10/31/20 02:30 104 H 20 100 10/31/20 02:00 94 H 20 98 10/31/20 01:51 108 H 10/31/20 01:38 36.8 C 10/31/20 01:30 108 H 20 100 Laboratory Results 10/31/20 05:10 02/14/21 05:10 Diagnostic Findings No new imaging PG Care Time/CCT Total # of Minutes Spent Total Time Spent with Patient: Total time spent is greater than 50% in coordination of care (as documented) at patient's floor/unit and/or counseling patient: Coding Level of Care Code 26854 Subseq Hosp Care Lvl 2 Diagnoses Hypercapnic respiratory failure J96.92 COPD, mild J44.9
[2020-11-01 05:25] LABS: Partial Thromboplastin Ratio 0.8; Partial Thromboplastin Time 21.7 Seconds (21.0-31.0)
[2020-11-01 05:41] LABS: BUN Creatinine Ratio 46.7 (10-20); Calcium 9.9 mg/dl (8.5-10.1); Creatinine Clr Calc Pharmacy 87.9 ml/min; Est GFR (African American) 100.4; Est GFR (Non-African American) 86.6; Magnesium 2.1 mg/dl (1.8-2.4); Potassium 4.7 mmol/L (3.5-5.1)
[2020-11-01 05:42] LABS: Phosphorus 2.5 mg/dl (2.5-4.9)
[2020-11-01 05:57] LABS: Eosinophils # (auto) 0.08 K/uL (0-0.5); Eosinophils % (auto) 0.9 %; Hematocrit (blood only) 32.4 % (37-47); Immature Granulocytes # (auto) 0.04 K/uL (0.00-0.02); Immature Granulocytes % (auto) 0.5 %; Lymphocytes # (auto) 1.05 K/uL (1.2-3.4); Mean Corpuscular Hemoglobin 24.4 pg (25-34); Mean Corpuscular Hgb Conc 27.8 g/dL (32-36); Mean Corpuscular Volume 87.8 fL (80-100); Mean Platelet Volume 9.5 fL (7.4-10.4); Monocytes # (auto) 1.11 K/uL (0.11-0.59); Monocytes % (auto) 12.7 %; Neutrophils # (auto) 6.45 K/uL (1.4-6.5); Neutrophils % (auto) 73.9 %; Nucleated RBC # (auto) 0.04 K/uL (0-0); Nucleated RBC % (auto) 0.4 %; Platelet Count 166 K/uL (130-400); RDW Coefficient of Variation 17.8 % (11.5-14.5); Red Blood Count 3.69 M/uL (4.2-5.4); White Blood Count 8.73 K/uL (4.8-10.8)
--- NOTE | 2020-11-01 06:57 | Hospitalist Progress Note ---
Date of Service November 01, 2020 Assessment & Plan (1) Atrial fibrillation with rapid ventricular response: 75-year-old female with past medical history hypertension presenting with significant hypotension in the setting of A. fib requiring pressor support on IVF boluses were not working. #A fib with RVR Heart rate in the low 100s. Working on better rate control -Metoprolol 12.5 mg twice daily started 10/31 -Xarelto p.o. 50 mg daily #COPD/hypercarbic respiratory failure of unclear etiology Former smoker, longstanding history of, likely complicating her current presentation. Likely exacerbated by obesity hypoventilation as well. Likely will require continue respiratory support as she continues to improve. PFTs not available for review. Recommend outpatient sleep study. Need to assess neuromuscular strength when able (?evidence of neuromuscular disease). Per pulmonology, pts sniff and forced vital capacity were slightly low and this may argue for neuromuscular weakness. Pt does have underlying evidence of neuromuscular disease with a low negative inspiratory force and a rising PCO2 which should qualify her for nightly BiPAP leaving the hospital. Per CM discussion with [facility], in order for patient to qualify for home BiPAP machine they will need a nocturnal pulse ox study completed on her baseline oxygen level, which for this patient is room air. However, patient is currently requiring 2 L nasal cannula. Thus, SNF will have to take care of qualifying test when able prior to discharging patient home. Given that we are discharging the patient with a presumed diagnosis of COPD despite further PFT testing, will start the patient on Spiriva and Symbicort until follow-up with pulmonology. -Continue nightly BiPAP for hypercapnia -Ordered pulse ox overnight study -Albuterol 1 puff 4 times daily -Added Spirva 1 inhalation every morning -Added Symbicort 2 inhalations twice daily -Appreciate pulmonology consult . -Signed off recommending follow-up as an outpatient #Electrolyte derangement Trend daily BMP, replete electrolytes as indicated. #HTN Lisinopril and spironolactone resumed #Closed fracture of the left proximal humerus Orthopedics was consulted recommending nonoperative/medical management -Sling in place. Pain management with p.o. Tylenol and p.o. [place] -will need repeat XRs in office in two weeks #Septic shock in setting of Sepsis POA treated with 5+Liters of NSS bolus and Karlo-synephrine gtt. (Resolved) -Patient presented with significant tachycardia resolving status post aggressive IV fluid, beta-denae and digoxin however continued to remain hypotensive necessitating transfer to the ICU where an IJ was placed for administration of pressors. Imaging was suspicious for left lower lobe infiltrate which taken with her clinical history could certainly result in this presentation -The underlying etiology of her shock is not clear. Regardless she continues to improve. Monitor clinically. 10/29 No longer requiring pressors, weaning hydrocortisone/fludrocortisone as tolerated -Echo: Compared with 10/27/2015 moderate pulmonary hypertension now apparent otherwise no significant changes, RV systolic pressure elevated at 40 to 50 mmHg. EF greater than 70%, LV hyperdynamic, LV hypertrophy mild MR -Hydrocortisone weaning protocol: 50 MGs x3 days, 40 MGs x3 days, 20 MGs x3 d ays, DC Florinef 10 MGs x3 days #JOHNATHAN (Resolved) Likely secondary to hypotension, resolved with improved pressures. Avoid nephrotoxins FENa:HH Diet. Repleting electrolytes as needed. Code Status:DNR/DNI DVT PPX:Xarelto PT/OT:ordered Dispo:PCU. PT OT recommend inpatient rehab stay. pending placement Paul You MD PGY 2, FCM This chart was completed utilizing 8bit voice recognition software. Grammatical errors, random word insertions, pronoun errors, and in complete sentences are an occasional consequence of the system. Any questions or concerns about the content, text, or information contained within the body of this dictation should be addressed directly to the physician for clarification. Admission and Anticipated Discharge Date Admission Date: October 25, 2020 Supervising Physician Co-Signing Physician Notes I personally examined the patient and verified all mckeon points of history and exam, discussed case, and agree with decision making with Dr You. Denies any breathing issues. Notes that her arm is still bothering her. Notes that her legs feel stiff, but whenever asked to describe further she seems confused as to why I am asking her about her legs to begin with, in general she denies any complaints other than stiffness that she attributes to being in bed. Vitals noted, in general she is awake and alert no distress but does appear quite fatigued. HEENT normocephalic atraumatic mucous membranes moist. Dentition is quite poor lungs are diminished throughout with markedly reduced air entry but no rales rhonchi or wheezes good effort no accessory muscle use. Legs show no abnormalities, no pain no crepitus no difficulties on range of motion. Hypercapnic respiratory failureprobably a combination of COPD and muscle weakness. Inhalers, supportive care, BiPAP. Otherwise as above. Appears stable for SNF when available. Subjective Patient lying in bed this morning in no acute distress. Reported doing well overnight. Patient was somnolent when I arrived to the room, however was easily awoken with prompting. Patient notes she is feeling better overall, still endorsing some arm pain however this is expected given her fracture. Otherwise patient continues to improve from a respiratory standpoint, mentating better although still pleasantly demented. All questions were answered, no acute concerns. Physical Exam Physical Exam: General: No acute distress HEENT: Normocephalic, some bruising/trauma from the ICU stay improving Neck: Normal to visual inspection Cardiac: Intermittently tachycardic otherwise regular rhythm I did not appreciate significant murmurs rubs or gallops, normal S1, normal S2, plus pedal edema bilaterally, negative calf tenderness Respiratory: Clear to auscultation bilaterally with symmetrical chest expansion no significant increased work of breathing, nasal cannula in place GI: Soft, nontender, nondistended, bowel sounds present Neuro: Alert, oriented only to place Psych: Calm and cooperative with the interview, pleasantly demented Results & Data Results & Data ([facility]) Vital Signs (Past 12 Hours) Vital Signs Temp Pulse Resp BP Pulse Ox 11/01/20 06:02 36.5 C 11/01/20 06:00 117 H 20 99 11/01/20 05:30 107 H 18 100 11/01/20 05:00 109 H 20 96 11/01/20 04:34 103 H 18 108/73 97 11/01/20 04:30 108 H 20 96 11/01/20 04:00 105 H 23 96 11/01/20 03:34 108 H 20 109/63 97 11/01/20 03:30 86 20 95 11/01/20 03:00 99 H 22 95 11/01/20 02:39 36.4 C L 11/01/20 02:34 81 23 108/73 95 11/01/20 02:30 110 H 26 H 97 11/01/20 02:00 96 H 20 97 11/01/20 01:50 99 H 20 98 11/01/20 01:34 97 H 20 104/74 97 11/01/20 01:30 90 18 97 11/01/20 01:00 107 H 20 97 11/01/20 00:34 107 H 20 104/61 97 11/01/20 00:30 95 H 20 97 11/01/20 00:23 93 H 11/01/20 00:00 98 H 20 98 10/31/20 23:34 108 H 20 112/73 98 10/31/20 23:30 101 H 20 97 10/31/20 23:00 89 20 97 10/31/20 22:34 93 H 20 100/61 96 10/31/20 22:30 99 H 21 95 10/31/20 22:00 94 H 20 95 10/31/20 21:34 95 H 19 98/65 L 96 10/31/20 21:30 105 H 21 95 10/31/20 21:00 98 H 20 94 10/31/20 20:39 36.8 C 10/31/20 20:34 106 H 20 90/61 L 95 10/31/20 20:30 108 H 20 94 10/31/20 20:00 106 H 20 94 10/31/20 19:33 116 H 33 H 96/60 L 95 10/31/20 19:30 107 H 27 H 93 10/31/20 19:00 118 H 18 97 Laboratory Results 11/01/20 11/01/20 11/01/20 Range/Units 05:01 05:01 05:01 WBC 8.73 (4.8-10.8) K/uL RBC 3.69 L (4.2-5.4) M/uL Hgb 9.0 L (12.0-16.0) g/dL Hct 32.4 L (37-47) % MCV 87.8 (80-100) fL MCH 24.4 L (25-34) pg MCHC 27.8 L (32-36) g/dL RDW Std Deviation 56.0 H (36.4-46.3) fL RDW Coeff of Andrae 17.8 H (11.5-14.5) % Plt Count 166 (130-400) K/uL MPV 9.5 (7.4-10.4) fL Immature Gran % (Auto) 0.5 % Neut % (Auto) 73.9 % Lymph % (Auto) 12.0 % Calloway % (Auto) 12.7 % Eos % (Auto) 0.9 % Baso % (Auto) 0.0 % Neut # (Auto) 6.45 (1.4-6.5) K/uL Lymph # (Auto) 1.05 L (1.2-3.4) K/uL Calloway # (Auto) 1.11 H (0.11-0.59) K/uL Eos # (Auto) 0.08 (0-0.5) K/uL Baso # (Auto) 0.00 (0-0.2) K/uL Immature Gran # (Auto) 0.04 H (0.00-0.02) K/uL Absolute Nucleated RBC 0.04 H (0-0) K/uL Nucleated RBC % (auto) 0.4 % APTT 21.7 (21.0-31.0) Seconds PTT Ratio 0.8 Sodium 146 H (136-145) mmol/L Potassium 4.7 (3.5-5.1) mmol/L Chloride 111 H (98-107) mmol/L Carbon Dioxide 36 H (21-32) mmol/L Anion Gap -1.0 L (3-11) BUN 31 H (7-18) mg/dl Creatinine 0.67 (0.6-1.2) mg/dl Est Cr Clr Drug Dosing 87.9 ml/min Est GFR ( Amer) 100.4 Est GFR (Non-Af Amer) 86.6 BUN/Creatinine Ratio 46.7 H (10-20) Glucose 80 (70-99) mg/dl Calcium 9.9 (8.5-10.1) mg/dl Phosphorus 2.5 (2.5-4.9) mg/dl Magnesium 2.1 (1.8-2.4) mg/dl Medications Administered Current Inpatient Medications Acetaminophen (Acetaminophen 325 Mg Tab) 650 mg PO Q4H PRN PRN Reason: Pain or Fever Stop: 11/24/20 16:20 Last Admin: 10/30/20 07:44 Dose: 650 mg Documented by: Hydrocodone Bitart/Acetaminophen (Hydrocodone/Acetamophen 5/325mg Tab) 1 tab PO Q4H PRN PRN Reason: Pain Stop: 11/13/20 10:05 Albuterol (Albuterol Hfa 8 Gm Inhaler) 1 puffs INH QID PRN PRN Reason: shortness of breath or wheezin Stop: 11/24/20 16:20 Atorvastatin Calcium (Atorvastatin 40 Mg Tab) 40 mg PO DAILY [facility] Stop: 11/25/20 08:59 Last Admin: 10/31/20 08:19 Dose: 40 mg Documented by: Bisacodyl (Bisacodyl 10 Mg Supp) 10 mg KS DAILY PRN PRN Reason: Constipation Stop: 11/25/20 00:19 Fludrocortisone Acetate (Fludrocortisone Acetate 0.1 Mg Tab) 0.1 mg PO QAM [facility] Stop: 11/25/20 08:59 Last Admin: 10/31/20 08:19 Dose: 0.1 mg Documented by: Hydrocortisone (Hydrocortisone 10 Mg Tab) 50 mg PO QAM [facility] Stop: 12/01/20 08:59 Phenylephrine HCl 40 mg/ (Dextrose) 504 mls @ 0 mls/hr IV .Q0M [facility]; Protocol Stop: 11/25/20 15:59 Last Admin: 10/29/20 20:00 Dose: Not Given Documented by: Lisinopril (Lisinopril 5 Mg Tab) 5 mg PO QAM [facility] Stop: 11/30/20 08:59 Last Admin: 10/31/20 11:01 Dose: 5 mg Documented by: Magnesium Hydroxide (Magnesium Hydroxide Susp 30 Ml Udc) 30 ml PO Q6H PRN PRN Reason: Constipation Stop: 11/25/20 00:19 Metoprolol Tartrate (Metoprolol Tartrate 25 Mg Tab) 12.5 mg PO BID [facility] Stop: 11/30/20 08:59 Last Admin: 10/31/20 20:15 Dose: 12.5 mg Documented by: Ondansetron HCl (Ondansetron Inj 2 Mg/Ml 2 Ml Vial) 4 mg IV Q6H PRN PRN Reason: Nausea Stop: 11/24/20 16:20 Polyethylene Glycol (Polyethylene (Miralax) 17 Gm Pack) 17 gm PO DAILY PRN PRN Reason: Constipation Stop: 11/25/20 00:19 Rivaroxaban (Rivaroxaban 15 Mg Tab) 15 mg PO DAILY [facility] Stop: 11/29/20 08:59 Last Admin: 10/31/20 08:19 Dose: 15 mg Documented by: Sertraline HCl (Sertraline Hcl 50 Mg Tablet) 25 mg PO DAILY [facility] Stop: 11/25/20 08:59 Last Admin: 10/27/20 09:20 Dose: 25 mg Documented by: Spironolactone (Spironolactone 25 Mg Tab) 25 mg PO DAILY [facility] Stop: 12/01/20 08:59 Vitamin D (Cholecalciferol 1,000 Units 25 Mcg Tab) 2,000 units PO DAILY [facility] Stop: 11/25/20 08:59 Last Admin: 10/31/20 08:19 Dose: 2,000 units Documented by: Resident Activity Tracking Resident Involvement: Resident Care Provided Care Provided: Adult Hospital Medicine
[2020-11-01] MEDS: Heparin IV Adult Wt-Based Standard *NO* Bolus Protocol IV SCH ×2 (07:03→07:08)
[2020-11-01] MEDS: METOPROLOL TARTRATE 25 MG TAB PO SCH ×2 (07:46→21:09)
[2020-11-01] MEDS: FLUDROCORTISONE ACETATE 0.1 MG TAB PO SCH (07:46)
[2020-11-01] MEDS: ATORVASTATIN 40 MG TAB PO SCH (07:46)
[2020-11-01] MEDS: CHOLECALCIFEROL 1,000 UNITS 25 MCG TAB PO SCH (07:46)
[2020-11-01] MEDS: HYDROCORTISONE 10 MG TAB PO SCH (07:46)
[2020-11-01] MEDS: SERTRALINE HCL 50 MG TABLET PO SCH (07:47)
[2020-11-01] MEDS: RIVAROXABAN 15 MG TAB PO SCH (07:47)
[2020-11-01] MEDS: SPIRONOLACTONE 25 MG TAB PO SCH (07:47)
[2020-11-01] MEDS: lisinopril 5 MG TAB PO SCH (07:47)
--- NOTE | 2020-11-01 09:49 | Discharge Summary ---
Date of Service November 01, 2020 Admission HPI Per Admitting Provider The patient is a 75 year old female who presents to the Emergency Room with complaints of a fall. Patient was at home and reportedly fell from her bed, she did strike her head. There was a hematoma on her central forehead and she has pain in the left numerous area. The patient has has taken no medication for relieving factors. Pt denies LOC, headache, fevers, chills, diaphoresis, visual changes, neck pain, chest pain, breathing difficulties, nausea, vomiting, abdominal pain, back pain, melena, hematochezia, urinary symptoms, numbness, weakness, lymphadenopathy, rash, or other complaints. She is found to have a humeral neck fracture, acute kidney injury with creatinine of 2, patient fibrillation is unknown for response is unclear if she took this morning medications and she has some encephalopathy which could be metabolic but could be postconcussive. Admission Exam Per Admitting Provider The patient appeared oklder than her stated age and slightly confused Vital signs as documented. Head exam is normocephalic atraumatic no scleral icterus Neck is without JVD, thyromegaly, or carotid bruits. Lungs are diminished at the bases Cardiac exam, Rhythm is tachycardic and irregular.. systolic murmur Abdominal exam reveals normal bowel sounds, soft non tender, no masses Extremities are mildly edematous and both pedal pulses are present Neurologic exam is alert and oriented x2 , no focal loss of strength or sensation Skin is without bruises or rashes Psychologically is with concerns for memory loss Principal Diagnosis Hypercapnic respiratory failure likely secondary to COPD versus rheumatological condition resulting in septic shock requiring ICU and pressors complicated by atrial fibrillation with rapid ventricular response and closed fracture of the left proximal humerus Discharge Exam General: No acute distress HEENT: Normocephalic, some bruising/trauma from the ICU stay improving Neck: Normal to visual inspection Cardiac: Intermittently tachycardic otherwise regular rhythm I did not appreciate significant murmurs rubs or gallops, normal S1, normal S2, plus pedal edema bilaterally, negative calf tenderness Respiratory: Clear to auscultation bilaterally with symmetrical chest expansion no significant increased work of breathing, nasal cannula in place GI: Soft, nontender, nondistended, bowel sounds present Neuro: Alert, oriented only to place Psych: Calm and cooperative with the interview, pleasantly demented Discharge Data Allergies Allergy/AdvReac Type Severity Reaction Status Date / Time No Known Allergies Allergy Mild Verified 10/25/20 12:10 Consultations 10/25/20 14:19 ED Decision to Admit Stat 10/25/20 16:21 Consult Orthopedic Surgery Routine 10/25/20 23:21 Consult [place]er Controlled Atmospheric Furnace Routine 10/25/20 23:43 Consult Case Management - Discharge Planning Routine Ordered Studies 10/25/20 11:27 CT cervical spine wo con Stat CT head/brain wo con Stat 10/26/20 02:11 US point of care ultrasound Urgent 10/26/20 10:46 CT shoulder LT wo con Routine Hospital Course (1) Atrial fibrillation with rapid ventricular response: 75-year-old female with past medical history hypertension presenting with significant hypotension in the setting of A. fib requiring pressor support on IVF boluses were not working. Patient's condition improved with supportive care BiPAP therapy, subsequently demonstrated from the ICU doing well on telemetry. #A fib with RVR Heart rate in the low 100s. Working on better rate control recommend follow-up with cardiology as an outpatient. -Metoprolol 12.5 mg twice daily started 10/31 -Xarelto p.o. 50 mg daily #COPD/hypercarbic respiratory failure of unclear etiology Former smoker, longstanding history of, likely complicating her current presentation. Likely exacerbated by obesity hypoventilation as well. Likely will require continue respiratory support as she continues to improve. PFTs not available for review. Recommend outpatient sleep study. Need to assess neuromuscular strength when able (?evidence of neuromuscular disease). Per pulmonology, pts sniff and forced vital capacity were slightly low and this may argue for neuromuscular weakness. Pt does have underlying evidence of neuromuscular disease with a low negative inspiratory force and a rising PCO2 which should qualify her for nightly BiPAP leaving the hospital. Per CM discussion with [facility], in order for patient to qualify for home BiPAP machine they will need a nocturnal pulse ox study completed on her baseline oxygen level, which for this patient is room air. However, patient is currently requiring 2 L nasal cannula. Thus, SNF will have to take care of qualifying test when able prior to discharging patient home. -Continue nightly BiPAP for hypercapnia -Albuterol 1 puff 4 times daily -Appreciate pulmonology consult . -recommending follow-up as an outpatient #Electrolyte derangement Trend daily BMP, replete electrolytes as indicated. #HTN Lisinopril and spironolactone resumed #Closed fracture of the left proximal humerus Orthopedics was consulted recommending nonoperative/medical management -Sling in place. Pain management with p.o. Tylenol and p.o. Strong -will need repeat XRs in office in two weeks #Septic shock in setting of Sepsis POA treated with 5+Liters of NSS bolus and Karlo-synephrine gtt. (Resolved) Patient presented with significant tachycardia resolving status post aggressive IV fluid, beta-denae and digoxin however continued to remain hypotensive necessitating transfer to the ICU where an IJ was placed for administration of pressors. Imaging was suspicious for left lower lobe infiltrate which taken with her clinical history could certainly result in this presentation -The underlying etiology of her shock is not clear. Regardless she continues to improve. Monitor clinically. 10/29 No longer requiring pressors, downgraded from the ICU, weaning hydrocortisone/fludrocortisone as tolerated. -Echo: Compared with 10/27/2015 moderate pulmonary hypertension now apparent otherwise no significant changes, RV systolic pressure elevated at 40 to 50 mmHg. EF greater than 70%, LV hyperdynamic, LV hypertrophy mild MR -Continue to wean hydrocortisone through prolonged taper? #JOHNATHAN (Resolved) Likely secondary to hypotension, expect to resolve as pressures improve. Avoid nephrotoxins FEN/GI: HH Diet. Repleting electrolytes as needed. DVT PPX: Xarelto CODE STATUS: DNR/DNI Dispo: PCU. PT OT recommend inpatient rehab stay. Per CM, [facility] has a bed, however due to patient's commercial insurance would not be able to be discharged until Sunday. Patient is medically stable at present. Discharge Plan Discharge Items Patient Disposition: Transfer Long-Term Fac Reason For Visit: AFIB RVR, FALL, HUMERAL FX Discharge Diagnosis: Hypercapnic respiratory failure likely secondary to COPD versus rheumatological condition resulting in septic shock requiring ICU and pressors complicated by atrial fibrillation with rapid ventricular response and closed fracture of the left proximal humerus Activity: Resume your previous activity Non-emergency contact: Primary Care Provider Call non-emergency contact if: you have any medication questions, your pain is not controlled and your temperature is above 101.5 Follow-up/Referrals: Sruinder Curran, [Primary Care Provider] - Diet: Heart Healthy Stand-Alone Forms: My [facility] Medications and DC Order Prescriptions: No Action rivaroxaban 15 mg tablet 15 mg PO DAILY Qty: 90 RF: 3 furosemide 20 mg tablet 20 mg PO [id number] Qty: 30 RF: 5 metoprolol tartrate 25 mg tablet 12.5 mg PO BID Qty: 90 RF: 1 spironolactone 25 mg tablet 25 mg PO DAILY Qty: 90 RF: 1 atorvastatin 40 mg tablet 40 mg PO DAILY Qty: 90 RF: 1 lisinopril 5 mg tablet 5 mg PO DAILY Qty: 90 RF: 3 albuterol sulfate 90 mcg/actuation HFA aerosol inhaler 1 inh inhalation QID PRN (Reason: shortness of breath or wheezing) Qty: 8.5 RF: 5 cholecalciferol (vitamin D3) 2,000 unit capsule 2,000 units PO DAILY Qty: 30 RF: 0 aspirin [Aspirin Low Dose] 81 mg Tablet,Delayed Release (Dr/Ec) 81 mg PO DAILY RF: 0 sertraline 25 mg tablet 25 mg PO DAILY RF: 0 Admission Data Admit Date/Time: 10/25/20 14:53 Attending Provider: Josh Rosario Admit Provider: Vick Rosales Primary Care Provider: Surinder Curran Other Providers: [facility], ; [facility] ; Vick Rosales ; Enrike Tovar ; Alexsander Colindres ; Lisa Blount
--- NOTE | 2020-11-01 17:01 | Billing Data ---
Date of Service November 01, 2020 Coding Level of Care Code 18066 Subseq Hosp Care Lvl 2
[2020-11-01] MEDS: ACETAMINOPHEN 325 MG TAB PO PRN (21:53)
[2020-11-02 06:29] LABS: Eosinophils # (auto) 0.08 K/uL (0-0.5); Eosinophils % (auto) 0.8 %; Hematocrit (blood only) 32.3 % (37-47); Hemoglobin 9.2 g/dL (12.0-16.0); Immature Granulocytes # (auto) 0.05 K/uL (0.00-0.02); Immature Granulocytes % (auto) 0.5 %; Lymphocytes % (auto) 12.2 %; Mean Corpuscular Hemoglobin 24.9 pg (25-34); Mean Corpuscular Hgb Conc 28.5 g/dL (32-36); Mean Corpuscular Volume 87.3 fL (80-100); Mean Platelet Volume 9.5 fL (7.4-10.4); Monocytes # (auto) 1.18 K/uL (0.11-0.59); Monocytes % (auto) 11.1 %; Neutrophils # (auto) 8.04 K/uL (1.4-6.5); Neutrophils % (auto) 75.4 %; Nucleated RBC # (auto) 0.04 K/uL (0-0); Nucleated RBC % (auto) 0.3 %; Platelet Count 179 K/uL (130-400); RDW Coefficient of Variation 18.4 % (11.5-14.5); RDW Standard Deviation 57.1 fL (36.4-46.3); White Blood Count 10.65 K/uL (4.8-10.8)
[2020-11-02 06:57] LABS: BUN Creatinine Ratio 43.6 (10-20); Calcium 10.1 mg/dl (8.5-10.1); Creatinine Clr Calc Pharmacy 68.3 ml/min; Est GFR (African American) 77.1; Est GFR (Non-African American) 66.6; Potassium 4.7 mmol/L (3.5-5.1)
[2020-11-02] MEDS ORDERED: LACTATED RINGER'S 1,000 ML IV SCH (08:45)
[2020-11-02] MEDS: METOPROLOL TARTRATE 25 MG TAB PO SCH ×2 (09:58→20:55)
[2020-11-02] MEDS: lisinopril 5 MG TAB PO SCH (10:02)
[2020-11-02] MEDS: RIVAROXABAN 15 MG TAB PO SCH (10:05)
[2020-11-02] MEDS: CHOLECALCIFEROL 1,000 UNITS 25 MCG TAB PO SCH (10:05)
[2020-11-02] MEDS: ATORVASTATIN 40 MG TAB PO SCH (10:05)
[2020-11-02] MEDS: HYDROCORTISONE 10 MG TAB PO SCH (10:05)
[2020-11-02] MEDS: SERTRALINE HCL 50 MG TABLET PO SCH (10:06)
[2020-11-02] MEDS: SPIRONOLACTONE 25 MG TAB PO SCH (10:06)
[2020-11-02] MEDS: FLUDROCORTISONE ACETATE 0.1 MG TAB PO SCH (10:06)
[2020-11-02] MEDS: FLUTICASONE/VILANTEROL 100/25MCG 14 PUFFS/INHALER INH SCH (10:07)
[2020-11-02] MEDS: UMECLIDINIUM BROMIDE 62.5MCG/BLISTER 7 PUFFS/INHALER INH SCH (10:07)
[2020-11-02] MEDS: POLYETHYLENE (MIRALAX) 17 GM PACK PO SCH ×2 (11:42→20:54)
--- NOTE | 2020-11-02 13:54 | Hospitalist Progress Note ---
Date of Service November 02, 2020 Assessment & Plan (1) Atrial fibrillation with rapid ventricular response: 75-year-old female with past medical history hypertension presenting with significant hypotension in the setting of A. fib requiring pressor support on IVF boluses were not working. #A fib with RVR Heart rate in the low 100s. Working on better rate control. -Metoprolol 12.5 mg twice daily started 10/31 -Xarelto p.o. 50 mg daily #Hypotension secondary to poor p.o. intake Patient's relative hypotension, increasing sodium content concentrated urine are all suggestive of dehydration/poor p.o. intake. I suspect this is likely sec ondary to her feeling poorly from a prolonged hospital stay and an element of dementia. To that effect we will be adding mirtazapine to the patient's drug regimen in efforts of helping her sleep at night and to stimulate appetite. -Mirtazapine 30 mg nightly -Received 2 L of lactated Ringer's today -Held Lisonpril and metoprolol 10/19 hypotension #COPD/hypercarbic respiratory failure of unclear etiology Former smoker, longstanding history of, likely complicating her current presentation. Likely exacerbated by obesity hypoventilation as well. Likely will require continue respiratory support as she continues to improve. PFTs not available for review. Recommend outpatient sleep study. Need to assess neuromuscular strength when able (?evidence of neuromuscular disease). Per pulmonology, pts sniff and forced vital capacity were slightly low and this may argue for neuromuscular weakness. Pt does have underlying evidence of neuromuscular disease with a low negative inspiratory force and a rising PCO2 which should qualify her for nightly BiPAP leaving the hospital. Per CM discussion with [facility], in order for patient to qualify for home BiPAP machine they will need a nocturnal pulse ox study completed on her baseline oxygen level, which for this patient is room air. However, patient is currently requiring 2 L nasal cannula. Thus, SNF will have to take care of qualifying test when able prior to discharging patient home. Given that we are discharging the patient with a presumed diagnosis of COPD, will start the patient on Spiriva and Symbicort until follow-up with pulmonology. 11/01 patient received overnight pulse ox study qualifying for Bipap -Continue nightly BiPAP for hypercapnia -Albuterol 1 puff 4 times daily -Continue Spirva 1 inhalation every morning -Continue Symbicort 2 inhalations twice daily -Appreciate pulmonology consult . -Signed off recommending follow-up as an outpatient #Electrolyte derangement Trend daily BMP, replete electrolytes as indicated. #HTN Lisinopril and spironolactone resumed #Closed fracture of the left proximal humerus Orthopedics was consulted recommending nonoperative/medical management -Sling in place. Pain management with p.o. Tylenol and p.o. [place] -will need repeat XRs in office in two weeks #Septic shock in setting of Sepsis POA treated with 5+Liters of NSS bolus and Karlo-synephrine gtt. (Resolved) -Patient presented with significant tachycardia resolving status post aggressive IV fluid, beta-denae and digoxin however continued to remain hypotensive necessitating transfer to the ICU where an IJ was placed for administration of pressors. Imaging was suspicious for left lower lobe infiltrate which taken with her clinical history could certainly result in this presentation -The underlying etiology of her shock is not clear. Regardless she continues to improve. Monitor clinically. 10/29 No longer requiring pressors, weaning hydrocortisone/fludrocortisone as tolerated -Echo: Compared with 10/27/2015 moderate pulmonary hypertension now apparent otherwise no significant changes, RV systolic pressure elevated at 40 to 50 mmHg. EF greater than 70%, LV hyperdynamic, LV hypertrophy mild MR -Hydrocortisone weaning protocol: 50 MGs x1 days, 40 MGs x3 days, 20 MGs x3 days, DC Florinef 10 MGs x3 days #JOHNATHAN (Resolved) Likely secondary to hypotension, resolved with improved pressures. Avoid nephrotoxins FENa:HH Diet. Repleting electrolytes as needed. Encourage PO intake Code Status:DNR/DNI DVT PPX:Xarelto PT/OT:ordered Dispo:PCU. PT OT recommend inpatient rehab stay. pending placement Paul You MD PGY 2, FCM This chart was completed utilizing [employer] voice recognition software. Grammatical errors, random word insertions, pronoun errors, and in complete sentences are an occasional consequence of the system. Any questions or concerns about the content, text, or information contained within the body of this dictation should be addressed directly to the physician for clarification. Admission and Anticipated Discharge Date Admission Date: October 25, 2020 Supervising Physician Co-Signing Physician Notes I personally examined the patient and verified all mckeon points of history and exam, discussed case, and agree with decision making with Dr You. No complaints. Nursing notes she is mostly been sleeping all day. Has not really eaten much. Patient notes she does not have much of any appetite. No abdominal pain or nausea or anything just not feeling up to eating. Vitals noted, in general she is awake pleasant fatigued no distress. HEENT normocephalic atraumatic mucous membranes moist poor dentition. Breathing unlabored no accessory muscle use good effort. Skin shows no rashes no pallor or icterus. Neuro shows no focal deficits. Hypercapnic respiratory failureprobably a combination of COPD and muscle weakness. Appears stable in this regard inhalers, supportive care, BiPAP when sleeping. Failure to thriveIV fluids for now given that she is got a little bit of hypernatremic dehydration. Encourage p.o. intake. Agree with trial of mirtazapine at bedtime. Otherwise as above. Appears stable for SNF when available overall, although she will definitely need close follow-up for her failure to thrive/poor p.o. intake. Subjective Patient sleeping in bed this morning in no acute distress. Overnight patient was intermittently hypotensive difficult to tell if this was symptomatic or not as she is baseline somewhat somnolent. Patient has been voiding, difficult to tell when her last bowel movement was, slept overnight, tolerating her diet. This morning she did not eat breakfast because she was too tired. Given patient's condition and symptoms suggestion of poor p.o. intake we will asked nursing to encourage p.o. intake throughout the day. All questions answered, concerns Physical Exam Physical Exam: General: No acute distress HEENT: Normocephalic, some bruising/trauma from the ICU stay improving Neck: Normal to visual inspection Cardiac: Intermittently tachycardic otherwise regular rhythm I did not appreciate significant murmurs rubs or gallops, normal S1, normal S2, plus pedal edema bilaterally, negative calf tenderness Respiratory: Clear to auscultation bilaterally with symmetrical chest expansion no significant increased work of breathing, nasal cannula in place GI: Soft, nontender, nondistended, bowel sounds present Neuro: Alert, oriented only to place, more somnolent than yesterday Psych: Calm and cooperative with the interview, pleasantly demented Results & Data Results & Data ([facility]) Vital Signs (Past 12 Hours) Vital Signs Temp Pulse Resp BP Pulse Ox Pulse Ox 11/02/20 09:57 107/73 11/02/20 07:08 36.4 C L 16 88/58 L 96 11/02/20 03:35 86 93 11/02/20 03:30 89 83 L Laboratory Results 11/02/20 11/02/20 Range/Units 05:49 05:49 WBC 10.65 (4.8-10.8) K/uL RBC 3.70 L (4.2-5.4) M/uL Hgb 9.2 L (12.0-16.0) g/dL Hct 32.3 L (37-47) % MCV 87.3 (80-100) fL MCH 24.9 L (25-34) pg MCHC 28.5 L (32-36) g/dL RDW Std Deviation 57.1 H (36.4-46.3) fL RDW Coeff of Andrae 18.4 H (11.5-14.5) % Plt Count 179 (130-400) K/uL MPV 9.5 (7.4-10.4) fL Immature Gran % (Auto) 0.5 % Neut % (Auto) 75.4 % Lymph % (Auto) 12.2 % [place] % (Auto) 11.1 % Eos % (Auto) 0.8 % Baso % (Auto) 0.0 % Neut # (Auto) 8.04 H (1.4-6.5) K/uL Lymph # (Auto) 1.30 (1.2-3.4) K/uL [place] # (Auto) 1.18 H (0.11-0.59) K/uL Eos # (Auto) 0.08 (0-0.5) K/uL Baso # (Auto) 0.00 (0-0.2) K/uL Immature Gran # (Auto) 0.05 H (0.00-0.02) K/uL Absolute Nucleated RBC 0.04 H (0-0) K/uL Nucleated RBC % (auto) 0.3 % Sodium 147 H (136-145) mmol/L Potassium 4.7 (3.5-5.1) mmol/L Chloride 111 H (98-107) mmol/L Carbon Dioxide 35 H (21-32) mmol/L Anion Gap 1.0 L (3-11) BUN 38 H (7-18) mg/dl Creatinine 0.86 (0.6-1.2) mg/dl Est Cr Clr Drug Dosing 68.3 ml/min Est GFR ( Amer) 77.1 Est GFR (Non-Af Amer) 66.6 BUN/Creatinine Ratio 43.6 H (10-20) Glucose 88 (70-99) mg/dl Calcium 10.1 (8.5-10.1) mg/dl Medications Administered Current Inpatient Medications Acetaminophen (Acetaminophen 325 Mg Tab) 650 mg PO Q4H PRN PRN Reason: Pain or Fever Stop: 11/24/20 16:20 Last Admin: 11/01/20 21:53 Dose: 650 mg Documented by: Hydrocodone Bitart/Acetaminophen (Hydrocodone/Acetamophen 5/325mg Tab) 1 tab PO Q4H PRN PRN Reason: Pain Stop: 11/13/20 10:05 Albuterol (Albuterol Hfa 8 Gm Inhaler) 1 puffs INH QID PRN PRN Reason: shortness of breath or wheezin Stop: 11/24/20 16:20 Atorvastatin Calcium (Atorvastatin 40 Mg Tab) 40 mg PO DAILY [facility] Stop: 11/25/20 08:59 Last Admin: 11/02/20 10:05 Dose: 40 mg Documented by: Bisacodyl (Bisacodyl 10 Mg Supp) 10 mg NE DAILY PRN PRN Reason: Constipation Stop: 11/25/20 00:19 Fludrocortisone Acetate (Fludrocortisone Acetate 0.1 Mg Tab) 0.1 mg PO QAM [facility] Stop: 11/25/20 08:59 Last Admin: 11/02/20 10:06 Dose: 0.1 mg Documented by: Fluticasone/Vilanterol (Fluticasone/Vilanterol 100/25mcg 14 Puffs/Inhaler) 1 puffs INH DAILY [facility]; Protocol Stop: 12/02/20 08:59 Last Admin: 11/02/20 10:07 Dose: 1 puffs Documented by: Hydrocortisone (Hydrocortisone 10 Mg Tab) 50 mg PO QAM [facility] Stop: 12/01/20 08:59 Last Admin: 11/02/20 10:05 Dose: 50 mg Documented by: Lisinopril (Lisinopril 5 Mg Tab) 5 mg PO QAM [facility] Stop: 11/30/20 08:59 Last Admin: 11/02/20 10:02 Dose: Not Given Documented by: Magnesium Hydroxide (Magnesium Hydroxide Susp 30 Ml Udc) 30 ml PO Q6H PRN PRN Reason: Constipation Stop: 11/25/20 00:19 Last Admin: 11/02/20 06:18 Dose: 30 ml Documented by: Metoprolol Tartrate (Metoprolol Tartrate 25 Mg Tab) 12.5 mg PO BID [facility] Stop: 11/30/20 08:59 Last Admin: 11/02/20 09:58 Dose: Not Given Documented by: Mirtazapine (Mirtazapine Tab 15 Mg Tab) 30 mg PO HS [facility] Stop: 12/02/20 20:59 Ondansetron HCl (Ondansetron Inj 2 Mg/Ml 2 Ml Vial) 4 mg IV Q6H PRN PRN Reason: Nausea Stop: 11/24/20 16:20 Polyethylene Glycol (Polyethylene (Miralax) 17 Gm Pack) 17 gm PO DAILY PRN PRN Reason: Constipation Stop: 11/25/20 00:19 Polyethylene Glycol (Polyethylene (Miralax) 17 Gm Pack) 17 gm PO BID [facility] Stop: 12/02/20 10:29 Last Admin: 11/02/20 11:42 Dose: 17 gm Documented by: Rivaroxaban (Rivaroxaban 15 Mg Tab) 15 mg PO DAILY [facility] Stop: 11/29/20 08:59 Last Admin: 11/02/20 10:05 Dose: 15 mg Documented by: Sertraline HCl (Sertraline Hcl 50 Mg Tablet) 25 mg PO DAILY [facility] Stop: 11/25/20 08:59 Last Admin: 11/02/20 10:06 Dose: 25 mg Documented by: Spironolactone (Spironolactone 25 Mg Tab) 25 mg PO DAILY [facility] Stop: 12/01/20 08:59 Last Admin: 11/02/20 10:06 Dose: 25 mg Documented by: Umeclidinium [place] (Umeclidinium [place] 62.5mcg/Blister 7 Puffs/Inhaler) 1 puffs INH QAM [facility] Stop: 12/02/20 08:59 Last Admin: 11/02/20 10:07 Dose: 1 puffs Documented by: Vitamin D (Cholecalciferol 1,000 Units 25 Mcg Tab) 2,000 units PO DAILY [facility] Stop: 11/25/20 08:59 Last Admin: 11/02/20 10:05 Dose: 2,000 units Documented by: Resident Activity Tracking Resident Involvement: Resident Care Provided Care Provided: Adult Hospital Medicine
[2020-11-02] MEDS: LACTATED RINGER'S 1,000 ML IV SCH ×2 (14:46→22:54)
--- NOTE | 2020-11-02 18:54 | Billing Data ---
Date of Service November 02, 2020 Coding Level of Care Code 99494 Subseq Hosp Care Lvl 2
[2020-11-02] MEDS: MIRTAZAPINE TAB 15 MG TAB PO SCH (20:54)
[2020-11-03 06:32] LABS: Eosinophils # (auto) 0.16 K/uL (0-0.5); Eosinophils % (auto) 1.5 %; Hematocrit (blood only) 31.1 % (37-47); Hemoglobin 8.6 g/dL (12.0-16.0); Immature Granulocytes # (auto) 0.04 K/uL (0.00-0.02); Immature Granulocytes % (auto) 0.4 %; Lymphocytes # (auto) 1.17 K/uL (1.2-3.4); Lymphocytes % (auto) 10.9 %; Mean Corpuscular Hemoglobin 24.7 pg (25-34); Mean Corpuscular Hgb Conc 27.7 g/dL (32-36); Mean Corpuscular Volume 89.4 fL (80-100); Mean Platelet Volume 10.3 fL (7.4-10.4); Monocytes # (auto) 1.19 K/uL (0.11-0.59); Neutrophils # (auto) 8.21 K/uL (1.4-6.5); Neutrophils % (auto) 76.2 %; Nucleated RBC # (auto) 0.04 K/uL (0-0); Nucleated RBC % (auto) 0.4 %; Platelet Count 170 K/uL (130-400); RDW Coefficient of Variation 18.6 % (11.5-14.5); RDW Standard Deviation 59.4 fL (36.4-46.3); Red Blood Count 3.48 M/uL (4.2-5.4); White Blood Count 10.77 K/uL (4.8-10.8)
[2020-11-03 07:04] LABS: Albumin Level 2.4 gm/dl (3.4-5.0); BUN Creatinine Ratio 45.8 (10-20); Creatinine Clr Calc Pharmacy 71.4 ml/min; Est GFR (African American) 81.7; Est GFR (Non-African American) 70.5; Potassium 5.1 mmol/L (3.5-5.1)
[2020-11-03 07:07] LABS: Albumin Globulin Ratio 0.9 (0.9-2); Bilirubin,Total 0.9 mg/dl (0.2-1); Globulin 2.7 gm/dl (2.5-4.0); Total Protein 5.1 gm/dl (6.4-8.2)
[2020-11-03] MEDS: RIVAROXABAN 15 MG TAB PO SCH (07:48)
[2020-11-03] MEDS: ATORVASTATIN 40 MG TAB PO SCH (07:49)
[2020-11-03] MEDS: CHOLECALCIFEROL 1,000 UNITS 25 MCG TAB PO SCH (07:50)
[2020-11-03] MEDS: HYDROCORTISONE 10 MG TAB PO SCH (07:50)
[2020-11-03] MEDS: SPIRONOLACTONE 25 MG TAB PO SCH (07:51)
[2020-11-03] MEDS: FLUDROCORTISONE ACETATE 0.1 MG TAB PO SCH (07:51)
[2020-11-03] MEDS: SERTRALINE HCL 50 MG TABLET PO SCH (07:52)
[2020-11-03] MEDS: POLYETHYLENE (MIRALAX) 17 GM PACK PO SCH ×2 (07:53→21:25)
[2020-11-03] MEDS: lisinopril 5 MG TAB PO SCH (07:57)
[2020-11-03] MEDS: LACTATED RINGER'S 1,000 ML IV SCH ×2 (07:57→21:43)
[2020-11-03] MEDS: METOPROLOL TARTRATE 25 MG TAB PO SCH (07:57)
[2020-11-03] MEDS: FLUTICASONE/VILANTEROL 100/25MCG 14 PUFFS/INHALER INH SCH (09:25)
[2020-11-03] MEDS: UMECLIDINIUM BROMIDE 62.5MCG/BLISTER 7 PUFFS/INHALER INH SCH (09:25)
[2020-11-03] MEDS ORDERED: D5W AND LACTATED RINGERS 1,000 ML IV SCH (09:45)
[2020-11-03 10:41] LABS: Appearance Urine Clear (Clear); Bilirubin Urine Negative (Negative); Blood Urine Negative (Negative); Color Urine Yellow; Glucose Urine UA Negative (Negative); Ketones Urine Negative (Negative); Leukocyte Esterase Urine Negative (Negative); Nitrite Urine Negative (Negative); Protein Urine Negative (Negative); Specific Gravity Urine 1.015 (1.000-1.030); Urobilinogen Urine Negative (Negative)
--- NOTE | 2020-11-03 15:21 | Hospitalist Progress Note ---
Date of Service November 03, 2020 Assessment & Plan (1) Atrial fibrillation with rapid ventricular response: 75-year-old female with past medical history hypertension presenting with significant hypotension in the setting of A. fib requiring pressor support on IVF boluses were not working. #A fib with RVR Heart rate in the low 100s. Working on better rate control. -Metoprolol 12.5 mg twice daily started 10/31, being held secondary to hypotension -Xarelto p.o. 50 mg daily #Hypotension secondary to poor p.o. intake Patient's relative hypotension, increasing sodium content concentrated urine are all suggestive of dehydration/poor p.o. intake. I suspect this is likely secondary to her feeling poorly from a prolonged hospital stay and an element of dementia. To that effect we will be adding mirtazapine to the patient's drug regimen in efforts of helping her sleep at night and to stimulate appetite. Patient now status post 24 hours of fluid administration without significant improvement in her hypotension. Have been encouraging p.o. intake, consulted dietitian. -Mirtazapine 30 mg nightly -Holding lisinopril and metoprolol secondary to hypotension -Consult dietitian -Diet adjusted to minced/moist -3 times daily p.o. supplements -Attempt snacks -Consider addition of fludrocortisone versus midodrine #Failure to thrive As above #COPD/hypercarbic respiratory failure of unclear etiology Former smoker, longstanding history of, likely complicating her current presentation. Likely exacerbated by obesity hypoventilation as well. Likely will require continue respiratory support as she continues to improve. PFTs not available for review. Recommend outpatient sleep study. Need to assess neuromuscular strength when able (?evidence of neuromuscular disease). Per pulmo nology, pts sniff and forced vital capacity were slightly low and this may argue for neuromuscular weakness. Pt does have underlying evidence of neuromuscular disease with a low negative inspiratory force and a rising PCO2 which should qualify her for nightly BiPAP leaving the hospital. Per CM discussion with [facility], in order for patient to qualify for home BiPAP machine they will need a nocturnal pulse ox study completed on her baseline oxygen level, which for this patient is room air. However, patient is currently requiring 2 L nasal cannula. Thus, SNF will have to take care of qualifying test when able prior to discharging patient home. Given that we are discharging the patient with a presumed diagnosis of COPD, will start the patient on Spiriva and Symbicort until follow-up with pulmonology. 11/01 patient received overnight pulse ox study qualifying for Bipap -Continue nightly BiPAP for hypercapnia -Albuterol 1 puff 4 times daily -Continue Spirva 1 inhalation every morning -Continue Symbicort 2 inhalations twice daily -Appreciate pulmonology consult . -Signed off recommending follow-up as an outpatient #Electrolyte derangement Trend daily BMP, replete electrolytes as indicated. #HTN Spironolactone -Holding lisinopril #Closed fracture of the left proximal humerus Orthopedics was consulted recommending nonoperative/medical management -Sling in place. Pain management with p.o. Tylenol and p.o. Warriors Mark -will need repeat XRs in office in two weeks #Septic shock in setting of Sepsis POA treated with 5+Liters of NSS bolus and Karlo-synephrine gtt. (Resolved) -Patient presented with significant tachycardia resolving status post aggressive IV fluid, beta-denae and digoxin however continued to remain hypotensive necessitating transfer to the ICU where an IJ was placed for administration of pressors. Imaging was suspicious for left lower lobe infiltrate which taken with her clinical history could certainly result in this presentation -The underlying etiology of her shock is not clear. Regardless she continues to improve. Monitor clinically. 10/29 No longer requiring pressors, weaning hydrocortisone/fludrocortisone as tolerated -Echo: Compared with 10/27/2015 moderate pulmonary hypertension now apparent otherwise no significant changes, RV systolic pressure elevated at 40 to 50 mmHg. EF greater than 70%, LV hyperdynamic, LV hypertrophy mild MR -Hydrocortisone weaning protocol: 50 MGs x1 days, 40 MGs x3 days, 20 MGs x3 days, DC Florinef 10 MGs x3 days -We will continue hydrocortisone at 50 mg given the patient's relative hypotension #JOHNATHAN (Resolved) Likely secondary to hypotension, resolved with improved pressures. Avoid nephrotoxins FENa:HH Diet. Repleting electrolytes as needed. Encourage PO intake Code Status:DNR/DNI DVT PPX:Xarelto PT/OT:ordered Dispo:PCU. PT OT recommend inpatient rehab stay. pending placement Paul You MD PGY 2, FCM This chart was completed utilizing [employer] voice recognition software. Grammatical errors, random word insertions, pronoun errors, and in complete sentences are an occasional consequence of the system. Any questions or concerns about the content, text, or information contained within the body of this dictation should be addressed directly to the physician for clarification. Admission and Anticipated Discharge Date Admission Date: October 25, 2020 Supervising Physician Co-Signing Physician Notes I personally examined the patient and verified all mckeon points of history and exam, discussed case, and agree with decision making with Dr You. no new issues. labs/sugars/vitals noted. Vitals noted, no distress. HEENT normocephalic atraumatic mucous membranes moist. Breathing unlabored no accessory muscle use good effort. Skin shows no rashes no pallor or icterus. Neuro shows no focal deficits. Hypercapnic respiratory failureprobably a combination of COPD and muscle weakness. Appears stable in this regard inhalers, supportive care, BiPAP when sleeping. Failure to thrivelarge concern for this as she conitnues to not do well w intake, and manifests it further with low sugar today. BP remains borderline low to slightly low. mirtazapine started - hopefully this will stimulate appetite. will need to reach out to friend to try to get a feel for goals of care in the big picture, and will need to have close vigilance in hospital and then in snf for PO intake/encourage PO intake. i harbor serious concerns that this could herald irreparable decline afib - right now rates have been reasonable - metoprolol has had to be held due to BP. since she was in RVR before and now has nothing for rate control, but BP marginal, may need to consider digoxin or amiodarone just for some semblance of control if beta denae/calcium channel blockers not able to be utilized Otherwise as above. Subjective Patient lying in bed this morning in no acute distress. No acute events overnight, still intermittently hypotensive despite fluid administration. Had an asymptomatic episode of hypoglycemia this morning, subsequently corrected. Patient is voiding, had a bowel movement overnight, tolerating her diet, and sleeping well. At this point acute concerns related to failure to thrive and goals of care all questions answered. Physical Exam Physical Exam: General: No acute distress HEENT: Normocephalic, some bruising/trauma from the ICU stay improving Neck: Normal to visual inspection Cardiac: Intermittently tachycardic otherwise regular rhythm I did not appreciate significant murmurs rubs or gallops, normal S1, normal S2, plus pedal edema bilaterally, negative calf tenderness Respiratory: Clear to auscultation bilaterally with symmetrical chest expansion no significant increased work of breathing, nasal cannula in place GI: Soft, nontender, nondistended, bowel sounds present Neuro: Alert, oriented only to place, more somnolent than yesterday Psych: Calm and cooperative with the interview, pleasantly demented Results & Data Results & Data ([facility]) Vital Signs (Past 12 Hours) Vital Signs Temp Pulse Resp BP Pulse Ox 11/03/20 07:18 36.3 C L 96 H 16 89/69 L 100 11/03/20 03:25 102/65 96 Laboratory Results 11/03/20 11/03/20 11/03/20 Range/Units 12:03 10:20 09:13 WBC (4.8-10.8) K/uL RBC (4.2-5.4) M/uL Hgb (12.0-16.0) g/dL Hct (37-47) % MCV (80-100) fL MCH (25-34) pg MCHC (32-36) g/dL RDW Std Deviation (36.4-46.3) fL RDW Coeff of Andrae (11.5-14.5) % Plt Count (130-400) K/uL MPV (7.4-10.4) fL Immature Gran % (Auto) % Neut % (Auto) % Lymph % (Auto) % [place] % (Auto) % Eos % (Auto) % Baso % (Auto) % Neut # (Auto) (1.4-6.5) K/uL Lymph # (Auto) (1.2-3.4) K/uL [place] # (Auto) (0.11-0.59) K/uL Eos # (Auto) (0-0.5) K/uL Baso # (Auto) (0-0.2) K/uL Immature Gran # (Auto) (0.00-0.02) K/uL Absolute Nucleated RBC (0-0) K/uL Nucleated RBC % (auto) % Sodium (136-145) mmol/L Potassium (3.5-5.1) mmol/L Chloride (98-107) mmol/L Carbon Dioxide (21-32) mmol/L Anion Gap (3-11) BUN (7-18) mg/dl Creatinine (0.6-1.2) mg/dl Est Cr Clr Drug Dosing ml/min Est GFR ( Amer) Est GFR (Non-Af Amer) BUN/Creatinine Ratio (10-20) Glucose 173 H (70-99) mg/dl POC Glucose 91 (70-99) mg/dl Calcium (8.5-10.1) mg/dl Total Bilirubin (0.2-1) mg/dl AST (15-37) U/L ALT (12-78) U/L Alkaline Phosphatase (45-117) U/L Total Protein (6.4-8.2) gm/dl Albumin (3.4-5.0) gm/dl Globulin (2.5-4.0) gm/dl Albumin/Globulin Ratio (0.9-2) Urine Color Yellow Urine Appearance Clear (Clear) Urine pH 5.0 (4.5-7.5) Ur Specific [place] 1.015 (1.000-1.030) Urine Protein Negative (Negative) Urine Glucose (UA) Negative (Negative) Urine Ketones Negative (Negative) Urine Blood Negative (Negative) Urine Nitrite Negative (Negative) Urine Bilirubin Negative (Negative) Urine Urobilinogen Negative (Negative) Ur Leukocyte Esterase Negative (Negative) 11/03/20 11/03/20 11/03/20 Range/Units 08:43 08:41 08:39 WBC (4.8-10.8) K/uL RBC (4.2-5.4) M/uL Hgb (12.0-16.0) g/dL Hct (37-47) % MCV (80-100) fL MCH (25-34) pg MCHC (32-36) g/dL RDW Std Deviation (36.4-46.3) fL RDW Coeff of Andrae (11.5-14.5) % Plt Count (130-400) K/uL MPV (7.4-10.4) fL Immature Gran % (Auto) % Neut % (Auto) % Lymph % (Auto) % [place] % (Auto) % Eos % (Auto) % Baso % (Auto) % Neut # (Auto) (1.4-6.5) K/uL Lymph # (Auto) (1.2-3.4) K/uL [place] # (Auto) (0.11-0.59) K/uL Eos # (Auto) (0-0.5) K/uL Baso # (Auto) (0-0.2) K/uL Immature Gran # (Auto) (0.00-0.02) K/uL Absolute Nucleated RBC (0-0) K/uL Nucleated RBC % (auto) % Sodium (136-145) mmol/L Potassium (3.5-5.1) mmol/L Chloride (98-107) mmol/L Carbon Dioxide (21-32) mmol/L Anion Gap (3-11) BUN (7-18) mg/dl Creatinine (0.6-1.2) mg/dl Est Cr Clr Drug Dosing ml/min Est GFR ( Amer) Est GFR (Non-Af Amer) BUN/Creatinine Ratio (10-20) Glucose (70-99) mg/dl POC Glucose 47 L* 37 L* 18 L* (70-99) mg/dl Calcium (8.5-10.1) mg/dl Total Bilirubin (0.2-1) mg/dl AST (15-37) U/L ALT (12-78) U/L Alkaline Phosphatase (45-117) U/L Total Protein (6.4-8.2) gm/dl Albumin (3.4-5.0) gm/dl Globulin (2.5-4.0) gm/dl Albumin/Globulin Ratio (0.9-2) Urine Color Urine Appearance (Clear) Urine pH (4.5-7.5) Ur Specific [place] (1.000-1.030) Urine Protein (Negative) Urine Glucose (UA) (Negative) Urine Ketones (Negative) Urine Blood (Negative) Urine Nitrite (Negative) Urine Bilirubin (Negative) Urine Urobilinogen (Negative) Ur Leukocyte Esterase (Negative) 11/03/20 11/03/20 11/03/20 Range/Units 08:18 08:17 05:14 WBC (4.8-10.8) K/uL RBC (4.2-5.4) M/uL Hgb (12.0-16.0) g/dL Hct (37-47) % MCV (80-100) fL MCH (25-34) pg MCHC (32-36) g/dL RDW Std Deviation (36.4-46.3) fL RDW Coeff of Andrae (11.5-14.5) % Plt Count (130-400) K/uL MPV (7.4-10.4) fL Immature Gran % (Auto) % Neut % (Auto) % Lymph % (Auto) % [place] % (Auto) % Eos % (Auto) % Baso % (Auto) % Neut # (Auto) (1.4-6.5) K/uL Lymph # (Auto) (1.2-3.4) K/uL [place] # (Auto) (0.11-0.59) K/uL Eos # (Auto) (0-0.5) K/uL Baso # (Auto) (0-0.2) K/uL Immature Gran # (Auto) (0.00-0.02) K/uL Absolute Nucleated RBC (0-0) K/uL Nucleated RBC % (auto) % Sodium 146 H (136-145) mmol/L Potassium 5.1 (3.5-5.1) mmol/L Chloride 110 H (98-107) mmol/L Carbon Dioxide 36 H (21-32) mmol/L Anion Gap 0 L (3-11) BUN 38 H (7-18) mg/dl Creatinine 0.82 (0.6-1.2) mg/dl Est Cr Clr Drug Dosing 71.4 ml/min Est GFR ( Amer) 81.7 Est GFR (Non-Af Amer) 70.5 BUN/Creatinine Ratio 45.8 H (10-20) Glucose 86 (70-99) mg/dl POC Glucose 30 L* 47 L* (70-99) mg/dl Calcium 10.0 (8.5-10.1) mg/dl Total Bilirubin 0.9 (0.2-1) mg/dl AST 15 (15-37) U/L ALT 30 (12-78) U/L Alkaline Phosphatase 63 (45-117) U/L Total Protein 5.1 L (6.4-8.2) gm/dl Albumin 2.4 L (3.4-5.0) gm/dl Globulin 2.7 (2.5-4.0) gm/dl Albumin/Globulin Ratio 0.9 (0.9-2) Urine Color Urine Appearance (Clear) Urine pH (4.5-7.5) Ur Specific [place] (1.000-1.030) Urine Protein (Negative) Urine Glucose (UA) (Negative) Urine Ketones (Negative) Urine Blood (Negative) Urine Nitrite (Negative) Urine Bilirubin (Negative) Urine Urobilinogen (Negative) Ur Leukocyte Esterase (Negative) 11/03/20 11/02/20 Range/Units 05:14 20:52 WBC 10.77 (4.8-10.8) K/uL RBC 3.48 L (4.2-5.4) M/uL Hgb 8.6 L (12.0-16.0) g/dL Hct 31.1 L (37-47) % MCV 89.4 (80-100) fL MCH 24.7 L (25-34) pg MCHC 27.7 L (32-36) g/dL RDW Std Deviation 59.4 H (36.4-46.3) fL RDW Coeff of Andrae 18.6 H (11.5-14.5) % Plt Count 170 (130-400) K/uL MPV 10.3 (7.4-10.4) fL Immature Gran % (Auto) 0.4 % Neut % (Auto) 76.2 % Lymph % (Auto) 10.9 % [place] % (Auto) 11.0 % Eos % (Auto) 1.5 % Baso % (Auto) 0.0 % Neut # (Auto) 8.21 H (1.4-6.5) K/uL Lymph # (Auto) 1.17 L (1.2-3.4) K/uL [place] # (Auto) 1.19 H (0.11-0.59) K/uL Eos # (Auto) 0.16 (0-0.5) K/uL Baso # (Auto) 0.00 (0-0.2) K/uL Immature Gran # (Auto) 0.04 H (0.00-0.02) K/uL Absolute Nucleated RBC 0.04 H (0-0) K/uL Nucleated RBC % (auto) 0.4 % Sodium (136-145) mmol/L Potassium (3.5-5.1) mmol/L Chloride (98-107) mmol/L Carbon Dioxide (21-32) mmol/L Anion Gap (3-11) BUN (7-18) mg/dl Creatinine (0.6-1.2) mg/dl Est Cr Clr Drug Dosing ml/min Est GFR ( Amer) Est GFR (Non-Af Amer) BUN/Creatinine Ratio (10-20) Glucose (70-99) mg/dl POC Glucose 90 (70-99) mg/dl Calcium (8.5-10.1) mg/dl Total Bilirubin (0.2-1) mg/dl AST (15-37) U/L ALT (12-78) U/L Alkaline Phosphatase (45-117) U/L Total Protein (6.4-8.2) gm/dl Albumin (3.4-5.0) gm/dl Globulin (2.5-4.0) gm/dl Albumin/Globulin Ratio (0.9-2) Urine Color Urine Appearance (Clear) Urine pH (4.5-7.5) Ur Specific [place] (1.000-1.030) Urine Protein (Negative) Urine Glucose (UA) (Negative) Urine Ketones (Negative) Urine Blood (Negative) Urine Nitrite (Negative) Urine Bilirubin (Negative) Urine Urobilinogen (Negative) Ur Leukocyte Esterase (Negative) Medications Administered Current Inpatient Medications Acetaminophen (Acetaminophen 325 Mg Tab) 650 mg PO Q4H PRN PRN Reason: Pain or Fever Stop: 11/24/20 16:20 Last Admin: 11/01/20 21:53 Dose: 650 mg Documented by: Hydrocodone Bitart/Acetaminophen (Hydrocodone/Acetamophen 5/325mg Tab) 1 tab PO Q4H PRN PRN Reason: Pain Stop: 11/13/20 10:05 Albuterol (Albuterol Hfa 8 Gm Inhaler) 1 puffs INH QID PRN PRN Reason: shortness of breath or wheezin Stop: 11/24/20 16:20 Atorvastatin Calcium (Atorvastatin 40 Mg Tab) 40 mg PO DAILY [facility] Stop: 11/25/20 08:59 Last Admin: 11/03/20 07:49 Dose: 40 mg Documented by: Bisacodyl (Bisacodyl 10 Mg Supp) 10 mg NE DAILY PRN PRN Reason: Constipation Stop: 11/25/20 00:19 Fludrocortisone Acetate (Fludrocortisone Acetate 0.1 Mg Tab) 0.1 mg PO QAM [facility] Stop: 11/25/20 08:59 Last Admin: 11/03/20 07:51 Dose: 0.1 mg Documented by: Fluticasone/Vilanterol (Fluticasone/Vilanterol 100/25mcg 14 Puffs/Inhaler) 1 puffs INH DAILY [facility]; Protocol Stop: 12/02/20 08:59 Last Admin: 11/03/20 09:25 Dose: 1 puffs Documented by: Heparin Sodium (Beef Lung) (Heparin 10 Unit/Ml 5 Ml Flush) 5 ml FLUSH PRN PRN PRN Reason: Flush Stop: 12/03/20 05:14 Last Admin: 11/03/20 14:52 Dose: 5 ml Documented by: Hydrocortisone (Hydrocortisone 10 Mg Tab) 50 mg PO QAM [facility] Stop: 12/01/20 08:59 Last Admin: 11/03/20 07:50 Dose: 50 mg Documented by: Lactated Ringer's (Lr) 1,000 mls @ 125 mls/hr IV .Q8H [facility] Stop: 12/02/20 14:14 Last Infusion: 11/03/20 10:27 Dose: Infused Documented by: Dextrose/Lactated Ringer's (D5w And Lactated Ringers) 1,000 mls @ 125 mls/hr IV .Q8H [facility] Stop: 12/03/20 09:44 Last Infusion: 11/03/20 14:50 Dose: 0 mls/hr Documented by: Lisinopril (Lisinopril 5 Mg Tab) 5 mg PO [facility] Stop: 11/30/20 08:59 Last Admin: 11/03/20 07:57 Dose: Not Given Documented by: Magnesium Hydroxide (Magnesium Hydroxide Susp 30 Ml Udc) 30 ml PO Q6H PRN PRN Reason: Constipation Stop: 11/25/20 00:19 Last Admin: 11/02/20 06:18 Dose: 30 ml Documented by: Metoprolol Tartrate (Metoprolol Tartrate 25 Mg Tab) 12.5 mg PO BID [facility] Stop: 11/30/20 08:59 Last Admin: 11/03/20 07:57 Dose: Not Given Documented by: Mirtazapine (Mirtazapine Tab 15 Mg Tab) 30 mg PO [facility] Stop: 12/02/20 20:59 Last Admin: 11/02/20 20:54 Dose: 30 mg Documented by: Ondansetron HCl (Ondansetron Inj 2 Mg/Ml 2 Ml Vial) 4 mg IV Q6H PRN PRN Reason: Nausea Stop: 11/24/20 16:20 Polyethylene Glycol (Polyethylene (Miralax) 17 Gm Pack) 17 gm PO DAILY PRN PRN Reason: Constipation Stop: 11/25/20 00:19 Polyethylene Glycol (Polyethylene (Miralax) 17 Gm Pack) 17 gm PO BID [facility] Stop: 12/02/20 10:29 Last Admin: 11/03/20 07:53 Dose: 17 gm Documented by: Rivaroxaban (Rivaroxaban 15 Mg Tab) 15 mg PO DAILY [facility] Stop: 11/29/20 08:59 Last Admin: 11/03/20 07:48 Dose: 15 mg Documented by: Sertraline HCl (Sertraline Hcl 50 Mg Tablet) 25 mg PO DAILY [facility] Stop: 11/25/20 08:59 Last Admin: 11/03/20 07:52 Dose: 25 mg Documented by: Spironolactone (Spironolactone 25 Mg Tab) 25 mg PO DAILY [facility] Stop: 12/01/20 08:59 Last Admin: 11/03/20 07:51 Dose: 25 mg Documented by: Umeclidinium Union (Umeclidinium [place] 62.5mcg/Blister 7 Puffs/Inhaler) 1 puffs INH QAM [facility] Stop: 12/02/20 08:59 Last Admin: 11/03/20 09:25 Dose: 1 puffs Documented by: Vitamin D (Cholecalciferol 1,000 Units 25 Mcg Tab) 2,000 units PO DAILY [facility] Stop: 11/25/20 08:59 Last Admin: 11/03/20 07:50 Dose: 2,000 units Documented by: Resident Activity Tracking Resident Involvement: Resident Care Provided Care Provided: Adult Hospital Medicine
[2020-11-03] MEDS ORDERED: LACTATED RINGER'S 500 ML IV ONE (16:53)
--- NOTE | 2020-11-03 16:58 | Billing Data ---
Date of Service November 03, 2020 Coding Level of Care Code 23489 Subseq Hosp Care Lvl 3
[2020-11-03] MEDS: MIRTAZAPINE TAB 15 MG TAB PO SCH (21:26)
[2020-11-04] MEDS ORDERED: FUROSEMIDE 20 MG in SYRINGE 0 ML IV ONE (03:11)
[2020-11-04 06:49] LABS: BUN Creatinine Ratio 47.8 (10-20); Calcium 9.8 mg/dl (8.5-10.1); Creatinine Clr Calc Pharmacy 79.3 ml/min; Est GFR (African American) 89.6; Est GFR (Non-African American) 77.3; Potassium 5.2 mmol/L (3.5-5.1)
--- NOTE | 2020-11-04 07:57 | XRay Report ---
XR chest 1V portable CLINICAL HISTORY: poor oxygenation COMPARISON STUDY: October 28, 2020 FINDINGS: The cardiac and several contours remain stable. There are bilateral pleural effusions. Ther e are progressive basilar airspace opacities, pneumonia versus atelectasis.[ IMPRESSION: 1. Bilateral pleural effusions with increasing basilar airspace opacities, atelectasis versus pneumon ia.. ACT 112: Negative or not required by law. Electronically signed by: Addy Aguilar M.D. 11/04/2020 7:56 AM
[2020-11-04] MEDS ORDERED: GLUCOSE 40% GEL 15 GM TUBE PO PRN (08:01)
[2020-11-04] MEDS ORDERED: DEXTROSE 50% 50 ML SYRINGE IV PRN (08:01)
[2020-11-04] MEDS ORDERED: GLUCAGON FOR INJ 1 MG VIAL SQ PRN (08:01)
[2020-11-04] MEDS ORDERED: CARBOHYDRATES FOR HYPOGLYCEMIA PO PRN (08:01)
[2020-11-04] MEDS ORDERED: GLUCOSE 10 TABS/TUBE PO PRN (08:01)
[2020-11-04] MEDS ORDERED: DEXTROSE 50% 50 ML SYRINGE IV ONE (08:04)
[2020-11-04] MEDS: SERTRALINE HCL 50 MG TABLET PO SCH (08:55)
[2020-11-04] MEDS: CHOLECALCIFEROL 1,000 UNITS 25 MCG TAB PO SCH (08:56)
[2020-11-04] MEDS: RIVAROXABAN 15 MG TAB PO SCH (08:56)
[2020-11-04] MEDS: ATORVASTATIN 40 MG TAB PO SCH (08:56)
[2020-11-04] MEDS: HYDROCORTISONE 10 MG TAB PO SCH (08:57)
[2020-11-04] MEDS: SPIRONOLACTONE 25 MG TAB PO SCH (08:58)
[2020-11-04] MEDS: UMECLIDINIUM BROMIDE 62.5MCG/BLISTER 7 PUFFS/INHALER INH SCH (08:58)
[2020-11-04] MEDS: FLUTICASONE/VILANTEROL 100/25MCG 14 PUFFS/INHALER INH SCH (08:58)
[2020-11-04] MEDS: FLUDROCORTISONE ACETATE 0.1 MG TAB PO SCH (08:58)
[2020-11-04] MEDS: POLYETHYLENE (MIRALAX) 17 GM PACK PO SCH ×2 (08:59→20:21)
[2020-11-04 09:08] LABS: BUN Creatinine Ratio 39.2 (10-20); Calcium 10.2 mg/dl (8.5-10.1); Creatinine Clr Calc Pharmacy 69.3 ml/min; Est GFR (African American) 76.1; Est GFR (Non-African American) 65.6; Potassium 4.8 mmol/L (3.5-5.1)
--- NOTE | 2020-11-04 11:14 | Hospitalist Progress Note ---
Date of Service November 04, 2020 Assessment & Plan (1) Atrial fibrillation with rapid ventricular response: 75-year-old female with past medical history hypertension presenting with significant hypotension in the setting of A. fib requiring pressor support on IVF boluses were not working. #A fib with RVR Heart rate in the low 100s. Working on better rate control. -Holding Metoprolol 12.5 mg twice daily started 10/31, -Xarelto p.o. 50 mg daily #Hypotension secondary to poor p.o. intake Patient's relative hypotension, increasing sodium content concentrated urine are all suggestive of dehydration/poor p.o. intake. I suspect this is likely secondary to her feeling poorly from a prolonged hospital stay and an element of dementia. To that effect we will be adding mirtazapine to the patient's drug regimen in efforts of helping her sleep at night and to stimulate appetite. Patient now status post 24 hours of fluid administration without significant improvement in her hypotension. Have been encouraging p.o. intake, consulted lam gabriel. -Mirtazapine 30 mg nightly -Holding lisinopril and metoprolol secondary to hypotension -Consult dietitian -Diet adjusted to minced/moist -3 times daily p.o. supplements -Attempt snacks -Consider addition of fludrocortisone versus midodrine #Failure to thrive As above -Encourage p.o. food and water -Encourage out of bed as tolerated -Windows open lights on during the day, dark quiet place at night #Hypoglycemia Patient with 2 episodes of hypoglycemia as documented by fingerstick test. Associate Chem-7 indicated low blood sugar in the 70s however not as low as the fingerstick was indicated. To evaluate currently reliability of the fingerstick test. This morning we followed the hypoglycemia protocol after the fingerstick test demonstrated blood sugar of 20, providing D50 W, Sprite, and applesauce. Then repeated a simultaneous fingerstick and BMP. Fingerstick still demonstrated a blood sugar of 25 well BMP demonstrated sugar of 153. To that extent a fingerstick test cannot be used reliably assess this patient's blood sugar. -Fingerstick test accurate -Trend BMP -Encourage p.o. food and water #COPD/hypercarbic respiratory failure of unclear etiology Former smoker, longstanding history of, likely complicating her current presentation. Likely exacerbated by obesity hypoventilation as well. Likely will require continue respiratory support as she continues to improve. PFTs not available for review. Recommend outpatient sleep study. Need to assess neuromuscular strength when able (?evidence of neuromuscular disease). Per pulmonology, pts sniff and forced vital capacity were slightly low and this may argue for neuromuscular weakness. Pt does have underlying evidence of neuromuscular disease with a low negative inspiratory force and a rising PCO2 which should qualify her for nightly BiPAP leaving the hospital. Per CM discussion with [facility], in order for patient to qualify for home BiPAP machine they will need a nocturnal pulse ox study completed on her baseline oxygen level, which for this patient is room air. However, patient is currently requiring 2 L nasal cannula. Thus, SNF will have to take care of qualifying test when able prior to discharging patient home. Given that we are discharging the patient with a presumed diagnosis of COPD, will start the patient on Spiriva and Symbicort until follow-up with pulmonology. 11/01 patient received overnight pulse ox study qualifying for Bipap -Continue nightly BiPAP for hypercapnia -Albuterol 1 puff 4 times daily -Continue Spirva 1 inhalation every morning -Continue Symbicort 2 inhalations twice daily -Appreciate pulmonology consult . -Signed off recommending follow-up as an outpatient #Electrolyte derangement Trend daily BMP, replete electrolytes as indicated. #HTN Spironolactone -Holding lisinopril #Closed fracture of the left proximal humerus Orthopedics was consulted recommending nonoperative/medical management -Sling in place. Pain management with p.o. Tylenol and p.o. [place] -will need repeat XRs in office in two weeks #Septic shock in setting of Sepsis POA treated with 5+Liters of NSS bolus and Karlo-synephrine gtt. (Resolved) -Patient presented with significant tachycardia resolving status post aggressive IV fluid, beta-denae and digoxin however continued to remain hypotensive necessitating transfer to the ICU where an IJ was placed for administration of pressors. Imaging was suspicious for left lower lobe infiltrate which taken with her clinical history could certainly result in this presentation -The underlying etiology of her shock is not clear. Regardless she continues to improve. Monitor clinically. 10/29 No longer requiring pressors, weaning hydrocortisone/fludrocortisone as tolerated -Echo: Compared with 10/27/2015 moderate pulmonary hypertension now apparent otherwise no significant changes, RV systolic pressure elevated at 40 to 50 mmHg. EF greater than 70%, LV hyperdynamic, LV hypertrophy mild MR -Hydrocortisone weaning protocol: 50 MGs x1 days, 40 MGs x3 days, 20 MGs x3 days, DC Florinef 10 MGs x3 days -We will continue hydrocortisone at 50 mg given the patient's relative hypotension #JOHNATHAN (Resolved) Likely secondary to hypotension, resolved with improved pressures. Avoid nephrotoxins FENa:HH Diet. Repleting electrolytes as needed. Encourage PO intake Code Status:DNR/DNI DVT PPX:Xarelto PT/OT:ordered Dispo:PCU. PT OT recommend inpatient rehab stay. pending placement Paul You MD PGY 2, FCM This chart was completed utilizing [employer] voice recognition software. Grammatical errors, random word insertions, pronoun errors, and in complete sentences are an occasional consequence of the system. Any questions or concerns about the content, text, or information contained within the body of this dictation should be addressed directly to the physician for clarification. Admission and Anticipated Discharge Date Admission Date: October 25, 2020 Supervising Physician Co-Signing Physician Notes I personally examined the patient and verified all mckeon points of history and exam, discussed case, and agree with decision making with Dr You. Still not eating well. Low sugar again this morning. Fortunately Dr. You did get a simultaneous fingerstick as well as serum glucose, and while she was at the lower end of sugars, it was probably not quite as profound as her fingersticks would suggest. No abdominal pain no nausea. Just has a difficult time eating, does not seem to have much appetite and also according to patient as well as nursing as well as dietitianshe just is really struggling to eat with her arm in a sling. Discussed with case management as well. Vitals noted, no distress. HEENT normocephalic atraumatic mucous membranes moist. Breathing unlabored no accessory muscle use good effort. Skin shows no rashes no pallor or icterus. Neuro shows no focal deficits. Arm in a sling Hypercapnic respiratory failureprobably a combination of COPD and muscle weakness. Appears stable in this regard inhalers, supportive care, BiPAP when sleeping. Failure to thrivelarge concern for this as she conitnues to not do well w intake, and manifests it further with low sugar yet again today. BP r continues to remain borderline low to slightly low. mirtazapine started - hopefully this will stimulate appetite. will need to reach out to friend to try to get a feel for goals of care in the big picture, and will need to have close vigilance in hospital and then in snf for PO intake/encourage PO intakewould like to have a little bit more stability in her p.o. intake before moving her to a lower level of care, given that she is requiring assistance with eating and drinking, as well as appearing to be at risk for serious complications (hypotension and hypoglycemia) when she is not taking in enough. i harbor serious concerns that this could herald irreparable decline afib -rates now have largely been volume dependentwhich ties together more with her failure to thrive than a de mayra cardiac processso for now continue to follow. since she was in RVR before and now has nothing for rate control, but BP marginal, may need to consider digoxin or amiodarone just for some semblance of control if beta denae/calcium channel blockers not able to be utilized Otherwise as above. Subjective Patient lying in bed this morning in no acute distress. I was paged to the room as the patient was reported to be hypoglycemic by fingerstick. Chem-7 indicated blood glucose of 70 this morning. Upon arrival to room the patient was asymptomatic from a hypoglycemia standpoint. I advised nursing to monitor proceed with atypical hypoglycemia regimen and the patient received D50. I also monitor her as she consumed applesauce and Sprite. I then requested the lab come to obtain BMP will simultaneously perform a fingerstick glucose. Finger stick glucose indicated 25 BMP indicated 153. To that extent from here now with fingerstick should not be considered reliable in this pt. patient still continues to have poor p.o. intake, increased shortness of breath overnight responded to Lasix therapy, voiding, stooling. Acute concerns relate to failure to thrive, all questions answered Physical Exam Physical Exam: General: No acute distress HEENT: Normocephalic, some bruising/trauma from the ICU stay improving Neck: Normal to visual inspection Cardiac: Intermittently tachycardic otherwise regular rhythm I did not appreciate significant murmurs rubs or gallops, normal S1, normal S2, plus pedal edema bilaterally, negative calf tenderness Respiratory: Clear to auscultation bilaterally with symmetrical chest expansion no significant increased work of breathing, nasal cannula in place GI: Soft, nontender, nondistended, bowel sounds present Neuro: Alert, oriented only to place, more somnolent than yesterday Psych: Calm and cooperative with the interview, pleasantly demented Results & Data Results & Data ([facility]) Vital Signs (Past 12 Hours) Vital Signs Temp Pulse Pulse Pulse Resp BP Pulse Ox 11/04/20 07:09 36.8 C 77 18 109/74 97 11/04/20 04:57 79 20 95 11/04/20 04:44 36.9 C 109 H 22 106/64 11/04/20 01:25 96 H 119/86 11/04/20 01:20 78 18 92 11/04/20 00:21 36.0 C L 24 129/89 Laboratory Results 11/04/20 11/04/20 11/04/20 Range/Units 08:43 08:43 08:27 Sodium 144 (136-145) mmol/L Potassium 4.8 (3.5-5.1) mmol/L Chloride 107 (98-107) mmol/L Carbon Dioxide 37 H (21-32) mmol/L Anion Gap 0 L (3-11) BUN 34 H (7-18) mg/dl Creatinine 0.87 (0.6-1.2) mg/dl Est Cr Clr Drug Dosing 69.3 ml/min Est GFR ( Amer) 76.1 Est GFR (Non-Af Amer) 65.6 BUN/Creatinine Ratio 39.2 H (10-20) Glucose 153 H (70-99) mg/dl POC Glucose 25 L* 26 L* (70-99) mg/dl Calcium 10.2 H (8.5-10.1) mg/dl 11/04/20 11/04/20 11/04/20 Range/Units 08:24 08:00 07:54 Sodium (136-145) mmol/L Potassium (3.5-5.1) mmol/L Chloride (98-107) mmol/L Carbon Dioxide (21-32) mmol/L Anion Gap (3-11) BUN (7-18) mg/dl Creatinine (0.6-1.2) mg/dl Est Cr Clr Drug Dosing ml/min Est GFR ( Amer) Est GFR (Non-Af Amer) BUN/Creatinine Ratio (10-20) Glucose (70-99) mg/dl POC Glucose 17 L* 15 L* 11 L* (70-99) mg/dl Calcium (8.5-10.1) mg/dl 11/04/20 11/04/20 11/03/20 Range/Units 07:52 05:56 21:00 Sodium 145 (136-145) mmol/L Potassium 5.2 H (3.5-5.1) mmol/L Chloride 109 H (98-107) mmol/L Carbon Dioxide 36 H (21-32) mmol/L Anion Gap 0 L (3-11) BUN 37 H (7-18) mg/dl Creatinine 0.76 (0.6-1.2) mg/dl Est Cr Clr Drug Dosing 79.3 ml/min Est GFR ( Amer) 89.6 Est GFR (Non-Af Amer) 77.3 BUN/Creatinine Ratio 47.8 H (10-20) Glucose 77 (70-99) mg/dl POC Glucose < 10 L* 145 H (70-99) mg/dl Calcium 9.8 (8.5-10.1) mg/dl 11/03/20 11/03/20 Range/Units 16:54 12:03 Sodium (136-145) mmol/L Potassium (3.5-5.1) mmol/L Chloride (98-107) mmol/L Carbon Dioxide (21-32) mmol/L Anion Gap (3-11) BUN (7-18) mg/dl Creatinine (0.6-1.2) mg/dl Est Cr Clr Drug Dosing ml/min Est GFR ( Amer) Est GFR (Non-Af Amer) BUN/Creatinine Ratio (10-20) Glucose (70-99) mg/dl POC Glucose 140 H 91 (70-99) mg/dl Calcium (8.5-10.1) mg/dl Medications Administered Current Inpatient Medications Acetaminophen (Acetaminophen 325 Mg Tab) 650 mg PO Q4H PRN PRN Reason: Pain or Fever Stop: 11/24/20 16:20 Last Admin: 11/01/20 21:53 Dose: 650 mg Documented by: Hydrocodone Bitart/Acetaminophen (Hydrocodone/Acetamophen 5/325mg Tab) 1 tab PO Q4H PRN PRN Reason: Pain Stop: 11/13/20 10:05 Albuterol (Albuterol Hfa 8 Gm Inhaler) 1 puffs INH QID PRN PRN Reason: shortness of breath or wheezin Stop: 11/24/20 16:20 Atorvastatin Calcium (Atorvastatin 40 Mg Tab) 40 mg PO DAILY GAURAV Stop: 11/25/20 08:59 Last Admin: 11/04/20 08:56 Dose: 40 mg Documented by: Bisacodyl (Bisacodyl 10 Mg Supp) 10 mg DC DAILY PRN PRN Reason: Constipation Stop: 11/25/20 00:19 Dextrose (Dextrose 50% 50 Ml Syringe) 25 - 50 ml IV UD PRN; Protocol PRN Reason: Hypoglycemia Protocol Stop: 12/04/20 08:00 Fludrocortisone Acetate (Fludrocortisone Acetate 0.1 Mg Tab) 0.1 mg PO QAM GAURAV Stop: 11/25/20 08:59 Last Admin: 11/04/20 08:58 Dose: 0.1 mg Documented by: Fluticasone/Vilanterol (Fluticasone/Vilanterol 100/25mcg 14 Puffs/Inhaler) 1 puffs INH DAILY GAURAV; Protocol Stop: 12/02/20 08:59 Last Admin: 11/04/20 08:58 Dose: 1 puffs Documented by: Glucagon (Glucagon For Inj 1 Mg Vial) 1 mg SQ UD PRN; Protocol PRN Reason: Hypoglycemia Protocol Stop: 12/04/20 08:00 Glucose (Glucose 10 Tabs/Tube) 4 - 8 tabs PO UD PRN; Protocol PRN Reason: Hypoglycemia Protocol Stop: 12/04/20 08:00 Glucose (Glucose 40% Gel 15 Gm Tube) 15 - 30 gm PO UD PRN; Protocol PRN Reason: Hypoglycemia Protocol Stop: 12/04/20 08:00 Heparin Sodium (Beef Lung) (Heparin 10 Unit/Ml 5 Ml Flush) 5 ml FLUSH PRN PRN PRN Reason: Flush Stop: 12/03/20 05:14 Last Admin: 11/04/20 08:22 Dose: 15 ml Documented by: Hydrocortisone (Hydrocortisone 10 Mg Tab) 50 mg PO QAM GAURAV Stop: 12/01/20 08:59 Last Admin: 11/04/20 08:57 Dose: 50 mg Documented by: Lactated Ringer's (Lr) 1,000 mls @ 125 mls/hr IV .Q8H GAURAV Stop: 12/02/20 14:14 Last Infusion: 11/04/20 03:03 Dose: 0 mls/hr Documented by: Dextrose/Lactated Ringer's (D5w And Lactated Ringers) 1,000 mls @ 125 mls/hr IV .Q8H GAURAV Stop: 12/03/20 09:44 Last Infusion: 11/03/20 14:50 Dose: 0 mls/hr Documented by: Lisinopril (Lisinopril 5 Mg Tab) 5 mg PO QAM GAURAV Stop: 11/30/20 08:59 Last Admin: 11/03/20 07:57 Dose: Not Given Documented by: Magnesium Hydroxide (Magnesium Hydroxide Susp 30 Ml Udc) 30 ml PO Q6H PRN PRN Reason: Constipation Stop: 11/25/20 00:19 Last Admin: 11/02/20 06:18 Dose: 30 ml Documented by: Metoprolol Tartrate (Metoprolol Tartrate 25 Mg Tab) 12.5 mg PO BID GAURAV Stop: 11/30/20 08:59 Last Admin: 11/03/20 07:57 Dose: Not Given Documented by: Mirtazapine (Mirtazapine Tab 15 Mg Tab) 30 mg PO HS GAURAV Stop: 12/02/20 20:59 Last Admin: 11/03/20 21:26 Dose: 30 mg Documented by: Miscellaneous (Carbohydrates For Hypoglycemia ) 15 - 30 gm PO UD PRN PRN Reason: Hypoglycemia Protocol Stop: 12/04/20 08:00 Ondansetron HCl (Ondansetron Inj 2 Mg/Ml 2 Ml Vial) 4 mg IV Q6H PRN PRN Reason: Nausea Stop: 11/24/20 16:20 Polyethylene Glycol (Polyethylene (Miralax) 17 Gm Pack) 17 gm PO DAILY PRN PRN Reason: Constipation Stop: 11/25/20 00:19 Polyethylene Glycol (Polyethylene (Miralax) 17 Gm Pack) 17 gm PO BID GAURAV Stop: 12/02/20 10:29 Last Admin: 11/04/20 08:59 Dose: 17 gm Documented by: Rivaroxaban (Rivaroxaban 15 Mg Tab) 15 mg PO DAILY GAURAV Stop: 11/29/20 08:59 Last Admin: 11/04/20 08:56 Dose: 15 mg Documented by: Sertraline HCl (Sertraline Hcl 50 Mg Tablet) 25 mg PO DAILY GAURAV Stop: 11/25/20 08:59 Last Admin: 11/04/20 08:55 Dose: 25 mg Documented by: Spironolactone (Spironolactone 25 Mg Tab) 25 mg PO DAILY GAURAV Stop: 12/01/20 08:59 Last Admin: 11/04/20 08:58 Dose: 25 mg Documented by: Umeclidinium Jackson (Umeclidinium Jackson 62.5mcg/Blister 7 Puffs/Inhaler) 1 puffs INH QAM GAURAV Stop: 12/02/20 08:59 Last Admin: 11/04/20 08:58 Dose: 1 puffs Documented by: Vitamin D (Cholecalciferol 1,000 Units 25 Mcg Tab) 2,000 units PO DAILY REPLACED BY [facility] Stop: 11/25/20 08:59 Last Admin: 11/04/20 08:56 Dose: 2,000 units Documented by: Resident Activity Tracking Resident Involvement: Resident Care Provided Care Provided: Adult [place] [facility]
--- NOTE | 2020-11-04 16:13 | Billing Data ---
Date of Service November 04, 2020 Coding Level of Care Code 15594 Subseq Hosp Care Lvl 3
--- NOTE | 2020-11-04 16:13 | Billing Data ---
Date of Service November 04, 2020 Coding Level of Care Code 06934 Subseq Hosp Care Lvl 3
[2020-11-04] MEDS: ACETAMINOPHEN 325 MG TAB PO PRN (18:07)
[2020-11-04] MEDS: MIRTAZAPINE TAB 15 MG TAB PO SCH (20:21)
[2020-11-05 06:14] LABS: Hematocrit (blood only) 28.4 % (37-47); Hemoglobin 7.8 g/dL (12.0-16.0); Mean Corpuscular Hemoglobin 24.5 pg (25-34); Mean Corpuscular Hgb Conc 27.5 g/dL (32-36); Platelet Count 168 K/uL (130-400); RDW Coefficient of Variation 19.4 % (11.5-14.5); RDW Standard Deviation 60.9 fL (36.4-46.3); Red Blood Count 3.19 M/uL (4.2-5.4); White Blood Count 7.97 K/uL (4.8-10.8)
[2020-11-05 06:38] LABS: BUN Creatinine Ratio 48.4 (10-20); Calcium 9.6 mg/dl (8.5-10.1); Creatinine Clr Calc Pharmacy 75.4 ml/min; Est GFR (African American) 84.2; Est GFR (Non-African American) 72.6; Potassium 5.1 mmol/L (3.5-5.1)
[2020-11-05 06:41] LABS: Eosinophils # (auto) 0.08 K/uL (0-0.5); Immature Granulocytes # (auto) 0.05 K/uL (0.00-0.02); Immature Granulocytes % (auto) 0.6 %; Lymphocytes # (auto) 1.29 K/uL (1.2-3.4); Lymphocytes % (auto) 16.2 %; Monocytes # (auto) 0.95 K/uL (0.11-0.59); Monocytes % (auto) 11.9 %; Neutrophils % (auto) 70.3 %; RBC Morphology Unremarkable
[2020-11-05] MEDS: SERTRALINE HCL 50 MG TABLET PO SCH (08:37)
[2020-11-05] MEDS: FLUTICASONE/VILANTEROL 100/25MCG 14 PUFFS/INHALER INH SCH (08:37)
[2020-11-05] MEDS: UMECLIDINIUM BROMIDE 62.5MCG/BLISTER 7 PUFFS/INHALER INH SCH (08:37)
[2020-11-05] MEDS: SPIRONOLACTONE 25 MG TAB PO SCH (08:38)
[2020-11-05] MEDS: HYDROCORTISONE 10 MG TAB PO SCH (08:38)
[2020-11-05] MEDS: RIVAROXABAN 15 MG TAB PO SCH (08:39)
[2020-11-05] MEDS: ATORVASTATIN 40 MG TAB PO SCH (08:40)
[2020-11-05] MEDS: CHOLECALCIFEROL 1,000 UNITS 25 MCG TAB PO SCH (08:40)
[2020-11-05] MEDS: FLUDROCORTISONE ACETATE 0.1 MG TAB PO SCH (08:40)
[2020-11-05] MEDS: POLYETHYLENE (MIRALAX) 17 GM PACK PO SCH (08:41)
--- NOTE | 2020-11-05 11:12 | Discharge Summary ---
Date of Service November 05, 2020 Admission HPI Per Admitting Provider The patient appeared oklder than her stated age and slightly confused Vital signs as documented. Head exam is normocephalic atraumatic no scleral icterus Neck is without JVD, thyromegaly, or carotid bruits. Lungs are diminished at the bases Cardiac exam, Rhythm is tachycardic and irregular.. systolic murmur Abdominal exam reveals normal bowel sounds, soft non tender, no masses Extremities are mildly edematous and both pedal pulses are present Neurologic exam is alert and oriented x2 , no focal loss of strength or sensation Skin is without bruises or rashes Psychologically is with concerns for memory loss Admission Exam Per Admitting Provider The patient appeared oklder than her stated age and slightly confused Vital signs as documented. Head exam is normocephalic atraumatic no scleral icterus Neck is without JVD, thyromegaly, or carotid bruits. Lungs are diminished at the bases Cardiac exam, Rhythm is tachycardic and irregular.. systolic murmur Abdominal exam reveals normal bowel sounds, soft non tender, no masses Extremities are mildly edematous and both pedal pulses are present Neurologic exam is alert and oriented x2 , no focal loss of strength or sensation Skin is without bruises or rashes Psychologically is with concerns for memory loss Principal Diagnosis Severe sepsis requiring ICU stay likely secondary to COPD exacerbation complicated by, atrial fibrillation with rapid ventricular response failure to thrive, hypotension, and dementia Discharge Exam General: No acute distress HEENT: Normocephalic, some bruising/trauma from the ICU stay improving Neck: Normal to visual inspection Cardiac: Intermittently tachycardic otherwise regular rhythm I did not appreciate significant murmurs rubs or gallops, normal S1, normal S2, plus pedal edema bilaterally, negative calf tenderness Respiratory: Clear to auscultation bilaterally with symmetrical chest expansion no significant increased work of breathing, nasal cannula in place GI: Soft, nontender, nondistended, bowel sounds present Neuro: Alert and oriented to person and place, significantly more interactive today Psych: Calm and cooperative with the interview, pleasantly demented Discharge Data Allergies Allergy/AdvReac Type Severity Reaction Status Date / Time No Known Allergies Allergy Mild Verified 10/25/20 12:10 Consultations 10/25/20 14:19 ED Decision to Admit Stat 10/25/20 16:21 Consult Orthopedic Surgery Routine 10/25/20 23:21 Consult Double Surface Operator Routine 10/25/20 23:43 Consult Case Management - Discharge Planning Routine Ordered Studies 10/25/20 11:27 CT cervical spine wo con Stat CT head/brain wo con Stat 10/26/20 02:11 US point of care ultrasound Urgent 10/26/20 10:46 CT shoulder LT wo con Routine Hospital Course (1) Atrial fibrillation with rapid ventricular response: 75-year-old female with past medical history hypertension presenting with significant hypotension in the setting of A. fib requiring pressor support on I VF boluses were not working. Subsequently stabilized and transferred to general medical floors where she experienced failure to thrive and hypotension. Mirtazapine was started and the patient made significant improvements to be discharged to SNF. #A fib with RVR Heart rate in the low 100s. Working on better rate control. Initially requiring metoprolol for rate control, however rates improved throughout the hospitalization. The patient was experiencing hypotension with failure to thrive will DC metoprolol on discharge to consider resumption by outpatient physician. -DC metoprolol -Xarelto p.o. 50 mg daily #Hypotension secondary to poor p.o. intake Patient's relative hypotension, increasing sodium content concentrated urine are all suggestive of dehydration/poor p.o. intake. I suspect this is likely secondary to her feeling poorly from a prolonged hospital stay and an element of dementia. To that effect we will be adding mirtazapine to the patient's drug regimen in efforts of helping her sleep at night and to stimulate appetite. Patient now status post 24 hours of fluid administration without significant improvement in her hypotension. Have been encouraging p.o. intake, consulted dietitian. Over the last 24 hours patient is made remarkable improvement with regards to her failure to thrive and hypertension. She is now consuming almost all of her meals, and is significantly more alert and interactive. Discontinuing lisinopril on discharge secondary to hypotension will leave decision regarding resumption of to primary care provider -Continue mirtazapine 30 mg nightly -Holding lisinopril and metoprolol secondary to hypotension -To discuss benefits of resumption with primary care provider -Dietitian recommends -Diet adjusted to minced/moist -3 times daily p.o. supplements -Attempt snacks -Prolonged steroid taper on discharge: 40 mg x 3 days, 30 mg x 3 days, 20 mg x 3 days DC Florinef, 10 mg x 3 days, #Hypoglycemia Patient with 2 episodes of hypoglycemia as documented by fingerstick test. Associate Chem-7 indicated low blood sugar in the 70s however not as low as the fingerstick was indicated. To evaluate currently reliability of the fingerstick test. This morning we followed the hypoglycemia protocol after the fingerstick test demonstrated blood sugar of 20, providing D50 W, Sprite, and applesauce. Then repeated a simultaneous fingerstick and BMP. Fingerstick still demonstrated a blood sugar of 25 well BMP demonstrated sugar of 153. To that extent a fingerstick test cannot be used reliably assess this patient's blood sugar. -Fingerstick test accurate -Trend BMP -Encourage p.o. food and water #COPD/hypercarbic respiratory failure of unclear etiology Former smoker, longstanding history of, likely complicating her current presentation. Likely exacerbated by obesity hypoventilation as well. Likely will require continue respiratory support as she continues to improve. PFTs not available for review. Recommend outpatient sleep study. Need to assess neuromuscular strength when able (?evidence of neuromuscular disease). Per pulmo nology, pts sniff and forced vital capacity were slightly low and this may argue for neuromuscular weakness. Pt does have underlying evidence of neuromuscular disease with a low negative inspiratory force and a rising PCO2 which should qualify her for nightly BiPAP leaving the hospital. Per CM discussion with [facility], in order for patient to qualify for home BiPAP machine they will need a nocturnal pulse ox study completed on her baseline oxygen level, which for this patient is room air. However, patient is currently requiring 2 L nasal cannula. Thus, SNF will have to take care of qualifying test when able prior to discharging patient home. Given that we are discharging the patient with a presumed diagnosis of COPD, will start the patient on Spiriva and Symbicort until follow-up with pulmonology. 11/01 patient received overnight pulse ox study qualifying for Bipap -Continue nightly BiPAP for hypercapnia IPAP 18, EPAP 5, rate 12, O2 2 -Albuterol 1 puff 4 times daily -Continue Spirva 1 inhalation every morning -Continue Symbicort 2 inhalations twice daily -Appreciate pulmonology consult . -Signed off recommending follow-up as an outpatient #Electrolyte derangement Trend daily BMP, replete electrolytes as indicated. #HTN Continue Spironolactone -DC lisinopril and metoprolol #Closed fracture of the left proximal humerus Orthopedics was consulted recommending nonoperative/medical management -Sling in place. Pain management with p.o. Tylenol and p.o. [place] -will need repeat XRs in office in two weeks #Septic shock in setting of Sepsis POA treated with 5+Liters of NSS bolus and Karlo-synephrine gtt. (Resolved) -Patient presented with significant tachycardia resolving status post aggressive IV fluid, beta-denae and digoxin however continued to remain hypotensive necessitating transfer to the ICU where an IJ was placed for administration of pressors. Imaging was suspicious for left lower lobe infiltrate which taken with her clinical history could certainly result in this presentation -The underlying etiology of her shock is not clear. Regardless she continues to improve. Monitor clinically. 10/29 No longer requiring pressors, weaning hydrocortisone/fludrocortisone as tolerated -Echo: Compared with 10/27/2015 moderate pulmonary hypertension now apparent otherwise no significant changes, RV systolic pressure elevated at 40 to 50 mmHg. EF greater than 70%, LV hyperdynamic, LV hypertrophy mild MR -Hydrocortisone weaning protocol: 40 MGs x3 days, 20 MGs x3 days, DC Florinef 10 MGs x3 days #JOHNATHAN (Resolved) Likely secondary to hypotension, resolved with improved pressures. Avoid nephrotoxins FENa:HH Diet. Repleting electrolytes as needed. Encourage PO intake Code Status:DNR/DNI DVT PPX:Xarelto PT/OT:ordered Dispo:PCU. PT OT recommend inpatient rehab stay. pending placement Paul You MD PGY 2, FCM This chart was completed utilizing [employer] voice recognition software. Grammatical errors, random word insertions, pronoun errors, and in complete sentences are an occasional consequence of the system. Any questions or concerns about the content, text, or information contained within the body of this dictation should be addressed directly to the physician for clarification. Total Time Total Time Spent Total Time Spent (In Minutes): <30 Discharge Plan Discharge Items Patient Disposition: Transfer [facility] Fac Reason For Visit: AFIB RVR, FALL, HUMERAL FX Discharge Diagnosis: Hypercapnic respiratory failure likely secondary to COPD versus rheumatological condition resulting in septic shock requiring ICU and pressors complicated by atrial fibrillation with rapid ventricular response and closed fracture of the left proximal humerus Activity: Resume your previous activity Non-emergency contact: Primary Care Provider Call non-emergency contact if: you have any medication questions, your pain is not controlled and your temperature is above 101.5 Follow-up/Referrals: Surinder Curran, [Primary Care Provider] - Diet: Heart Healthy Addtl Attending Provider Instructions: 75-year-old female with past medical history hypertension presenting with significant hypotension in the setting of A. fib requiring pressor support on IVF boluses were not working. Subsequently stabilized and transferred to general medical floors where she experienced failure to thrive and hypotension. Mirtazapine was started and the patient made significant improvements to be discharged to SNF. #A fib with RVR Heart rate in the low 100s. Working on better rate control. Initially requiring metoprolol for rate control, however rates improved throughout the hospitalization. The patient was experiencing hypotension with failure to thrive will DC metoprolol on discharge to consider resumption by outpatient physician. -DC metoprolol -Xarelto p.o. 50 mg daily #Hypotension secondary to poor p.o. intake Patient's relative hypotension, increasing sodium content concentrated urine are all suggestive of dehydration/poor p.o. intake. I suspect this is likely secondary to her feeling poorly from a prolonged hospital stay and an element of dementia. To that effect we will be adding mirtazapine to the patient's drug regimen in efforts of helping her sleep at night and to stimulate appetite. Patient now status post 24 hours of fluid administration without significant improvement in her hypotension. Have been encouraging p.o. intake, consulted dietitian. Over the last 24 hours patient is made remarkable improvement with regards to her failure to thrive and hypertension. She is now consuming almost all of her meals, and is significantly more alert and interactive. Discontinuing lisinopril on discharge secondary to hypotension will leave decision regarding resumption of to primary care provider -Continue mirtazapine 30 mg nightly -Holding lisinopril and metoprolol secondary to hypotension -To discuss benefits of resumption with primary care provider -Dietitian recommends -Diet adjusted to minced/moist -3 times daily p.o. supplements -Attempt snacks -Prolonged steroid taper on discharge: 40 mg x 3 days, 30 mg x 3 days, 20 mg x 3 days DC Florinef, 10 mg x 3 days, #Hypoglycemia Patient with 2 episodes of hypoglycemia as documented by fingerstick test. Associate Chem-7 indicated low blood sugar in the 70s however not as low as the fingerstick was indicated. To evaluate currently reliability of the fingerstick test. This morning we followed the hypoglycemia protocol after the fingerstick test demonstrated blood sugar of 20, providing D50 W, Sprite, and applesauce. Then repeated a simultaneous fingerstick and BMP. Fingerstick still demonstrated a blood sugar of 25 well BMP demonstrated sugar of 153. To that extent a fingerstick test cannot be used reliably assess this patient's blood sugar. -Fingerstick test accurate -Trend BMP -Encourage p.o. food and water #COPD/hypercarbic respiratory failure of unclear etiology Former smoker, longstanding history of, likely complicating her current presentation. Likely exacerbated by obesity hypoventilation as well. Likely will require continue respiratory support as she continues to improve. PFTs not available for review. Recommend outpatient sleep study. Need to assess neuromuscular strength when able (?evidence of neuromuscular disease). Per pulmonology, pts sniff and forced vital capacity were slightly low and this may argue for neuromuscular weakness. Pt does have underlying evidence of neuromuscular disease with a low negative inspiratory force and a rising PCO2 which should qualify her for nightly BiPAP leaving the hospital. Per CM discussion with [facility], in order for patient to qualify for home BiPAP machine they will need a nocturnal pulse ox study completed on her baseline oxygen level, which for this patient is room air. However, patient is currently requiring 2 L nasal cannula. Thus, SNF will have to take care of qualifying test when able prior to discharging patient home. Given that we are discharging the patient with a presumed diagnosis of COPD, will start the patient on Spiriva and Symbicort until follow-up with pulmonology. 11/01 patient received overnight pulse ox study qualifying for Bipap -Continue nightly BiPAP for hypercapnia IPAP 18, EPAP 5, rate 12, O2 2 -Albuterol 1 puff 4 times daily -Continue Spirva 1 inhalation every morning -Continue Symbicort 2 inhalations twice daily -Appreciate pulmonology consult . -Signed off recommending follow-up as an outpatient #Electrolyte derangement Trend daily BMP, replete electrolytes as indicated. #HTN Continue Spironolactone -DC lisinopril and metoprolol #Closed fracture of the left proximal humerus Orthopedics was consulted recommending nonoperative/medical management -Sling in place. Pain management with p.o. Tylenol and p.o. [place] -will need repeat XRs in office in two weeks #Septic shock in setting of Sepsis POA treated with 5+Liters of NSS bolus and Karlo-synephrine gtt. (Resolved) -Patient presented with significant tachycardia resolving status post aggressive IV fluid, beta-denae and digoxin however continued to remain hypotensive necessitating transfer to the ICU where an IJ was placed for administration of pressors. Imaging was suspicious for left lower lobe infiltrate which taken with her clinical history could certainly result in this presentation -The underlying etiology of her shock is not clear. Regardless she continues to improve. Monitor clinically. 10/29 No longer requiring pressors, weaning hydrocortisone/fludrocortisone as tolerated -Echo: Compared with 10/27/2015 moderate pulmonary hypertension now apparent otherwise no significant changes, RV systolic pressure elevated at 40 to 50 mmHg. EF greater than 70%, LV hyperdynamic, LV hypertrophy mild MR -Hydrocortisone weaning protocol: 40 MGs x3 days, 20 MGs x3 days, DC Florinef 10 MGs x3 days #JOHNATHAN (Resolved) Likely secondary to hypotension, resolved with improved pressures. Avoid nephrotoxins FENa:HH Diet. Repleting electrolytes as needed. Encourage PO intake Code Status:DNR/DNI DVT PPX:Xarelto PT/OT:ordered Dispo:PCU. PT OT recommend inpatient rehab stay. pending placement Paul You MD PGY 2, FCM This chart was completed utilizing [employer] voice recognition software. Grammatical errors, random word insertions, pronoun errors, and in complete sentences are an occasional consequence of the system. Any questions or concerns about the content, text, or information contained within the body of this dictation should be addressed directly to the physician for clarification. Pending Studies at Discharge: No Stand-Alone Forms: [facility] [employer] Skilled Items Patient informed of condition?: Yes DNR: Yes Discharge Level of Care: Skilled Communicable Disease: No Discharge Prognosis: Improving Lines: None Urinary Catheter: No Medications and DC Order Prescriptions: New polyethylene glycol 3350 [Miralax] 17 gram Powder In Packet 17 g PO BID 30 Days RF: 0 mirtazapine 15 mg Tablet 30 mg PO HS 30 Days Qty: 60 RF: 0 hydrocortisone [Cortef] 10 mg Tablet 50 mg PO QAM Qty: 30 RF: 0 fludrocortisone 0.1 mg Tablet 0.1 mg PO QAM Qty: 9 RF: 0 Breo Ellipta 100-25 mcg/dose Blister With Device 1 ea inhalation DAILY Qty: 60 RF: 0 Incruse Ellipta 62.5 mcg/actuation Blister With Device 1 puff inhalation QAM 30 Days RF: 0 Continued rivaroxaban 15 mg tablet 15 mg PO DAILY Qty: 90 RF: 3 furosemide 20 mg tablet 20 mg PO 3XWK Qty: 30 RF: 5 spironolactone 25 mg tablet 25 mg PO DAILY Qty: 90 RF: 1 atorvastatin 40 mg tablet 40 mg PO DAILY Qty: 90 RF: 1 albuterol sulfate 90 mcg/actuation HFA aerosol inhaler 1 inh inhalation QID PRN (Reason: shortness of breath or wheezing) Qty: 8.5 RF: 5 cholecalciferol (vitamin D3) 2,000 unit capsule 2,000 units PO DAILY Qty: 30 RF: 0 aspirin [Aspirin Low Dose] 81 mg Tablet,Delayed Release (Dr/Ec) 81 mg PO DAILY RF: 0 sertraline 25 mg tablet 25 mg PO DAILY RF: 0 Discontinued metoprolol tartrate 25 mg tablet 12.5 mg PO BID Qty: 90 RF: 1 lisinopril 5 mg tablet 5 mg PO DAILY Qty: 90 RF: 3 Discharge Orders: Discharge Order (Routine); Ordered 11/05/20 Ordered By: Paul You Admission Data Admit Date/Time: 10/25/20 14:53 Attending Provider: Josh Rosario Admit Provider: Vick Rosales Primary Care Provider: Surinder Curran [facility]iders: [facility] ; [facility] ; Lisa Blount ; [facility] ; Vick Rosales ; Enrike Tovar ; Alexsander Colindres Other Interventions: Discharge Summary Assessment (RN) Last Done: 11/05/20 14:45 Supervising Physician Co-Signing Physician Notes I personally examined the patient and verified all mckeon points of history and exam, discussed case, and agree with decision making with Dr You. Eating better. Cleared her entire breakfast tray! Generally feeling better 2. Vitals noted, no distress. HEENT normocephalic atraumatic mucous membranes moist. Breathing unlabored no accessory muscle use good effort. Skin shows no rashes no pallor or icterus. Neuro shows no focal deficits. Arm in a sling Hypercapnic respiratory failureprobably a combination of COPD and muscle weakness. Appears stable in this regard inhalers, supportive care, BiPAP when sleeping. Ongoing care at SNF would be okay. Failure to thriveshe is now starting to eat betterquestion if it is related to the mirtazapine or just overall recovery. Either way she is showing improvement. Stable for SNF, but her p.o. intake will definitely need to be closely monitored and encouraged. afib -rates now have largely been volume dependentwhich ties together more with her failure to thrive than a de mayra cardiac processso for now continue to follow. since she was in RVR before and now has nothing for rate control, but BP marginal, may need to consider digoxin or amiodarone just for some semblance of control if beta denae/calcium channel blockers not able to be utilizedgiven her overall relative stability, and how much this seems to tight a p.o. intake, we will hold off on reinstituting any type of rate controlling medications at this time, but definitely would ask that her rates be followed at SNF with medication started if clinically warranted. Otherwise as above. Resident Activity Tracking Resident Involvement: Resident Care Provided Care Provided: Adult Hospital Medicine
[2020-11-05 14:06] LABS: Anti-Striated Muscle NEGATIVE (NEGATIVE); Receptor Binding Ab <0.30 nmol/L
--- NOTE | 2020-11-05 16:43 | Billing Data ---
Date of Service November 05, 2020 Coding Level of Care Code D/C Day Management <30 mins
[2020-11-05] MEDS: ACETAMINOPHEN 325 MG TAB PO PRN (18:22)
== END 2020-11-05 19:30 | DRG 871 ==
LOC: ED 11:13 → 2S 14:53 → SUATTDRO 14:53 → 2S 15:47 → 1E 23:29 → 3W 11-01 14:36